=== PATIENT | male | born 1940 | race Caucasian/White ===

== ENCOUNTER 2017-04-17 21:31 | Inpatient (IN) | payer MEDICARE ==
--- NOTE | 2017-04-17 23:41 | ER Document Report ---
ED Medical Screen (RME) - General Chief Complaint: Chest Pain Stated Complaint: ABDOMINAL PAIN Time Seen by Provider: 04/17/17 23:30 Notes: 36-year-old male, has 2 complaints, chief complaint is lower abdominal pain and pain in his perineum, he was initially treated with Cipro for suspected prostatitis, saw his urologist and was changed to Bactrim. He states it is still present and uncomfortable. He also states that he is feeling pain in his upper chest, he points to his epigastric area. He states that it is difficult to eat at times. He occasionally reports nausea. He denies current upper abdominal pain or chest pain. He denies shortness of breath, fever, vomiting. He has prostate cancer, not on chemotherapy or radiation at this time. TRAVEL OUTSIDE OF THE [place] IN LAST 30 DAYS: No - Related Data Allergies/Adverse Reactions: No Known Allergies Allergy (Unverified 08/25/12 08:20) Past Medical History - Past Medical History Cardiac Medical History: Reports: Hx Hypercholesterolemia - controlled by meds, Hx Hypertension - 12 yrs Denies: Hx Coronary Artery Disease, Hx Heart Attack Pulmonary Medical History: Reports: Hx Pneumonia Denies: Hx Asthma, Hx Bronchitis, Hx COPD Neurological Medical History: Denies: Hx Cerebrovascular Accident, Hx Seizures Endocrine Medical History: Reports: Hx Hypothyroidism Renal/ Medical History: Reports: Hx Benign Prostatic Hyperplasia. Denies: Hx Peritoneal Dialysis GI Medical History: Reports: Hx Gastroesophageal Reflux Disease, Hx Hiatal Hernia - 30 years ago Musculoskeltal Medical History: Reports Hx Arthritis - shoulders,knees,ribs Past Surgical History: Reports: Hx Adenoidectomy, Hx Coronary Artery Bypass Graft - 10 YRS AGO, Hx Tonsillectomy. Denies: Hx Pacemaker - Immunizations Immunizations up to date: Yes Hx Diphtheria, Pertussis, Tetanus Vaccination: - unk Physical Exam - Vital signs Vitals: Temp Pulse Resp BP Pulse Ox 98.5 F 67 16 121/58 L 96 04/17/17 21:59 04/17/17 21:59 04/17/17 21:59 04/17/17 21:59 04/17/17 21:59 - Abdominal Inspection: Normal Tenderness: Tender - Patient winced when pressing on the epigastric area, has mild generalized tenderness, no guarding Course - Vital Signs Vital signs: Temp Pulse Resp BP Pulse Ox 98.5 F 67 16 121/58 L 96 04/17/17 21:59 04/17/17 21:59 04/17/17 21:59 04/17/17 21:59 04/17/17 21:59
[2017-04-18 00:21] LABS: ABSOLUTE EOSINOPHILS # (AUTO) 0.1 10^3/uL (0.0-0.6); ABSOLUTE NEUT (AUTO) 8.1 10^3/uL (1.7-8.2); BASOPHILS % (AUTO) 0.1 % (0-2); HEMATOCRIT 35.9 % (37.9-51.0); HEMOGLOBIN 12.6 g/dL (13.5-17.0); HGB HCT DIFFERENCE 1.9; LYMPHOCYTES % (AUTO) 9.7 % (13-45); MEAN CORPUSCULAR HEMOGLOBIN 32.6 pg (27.0-33.4); MEAN CORPUSCULAR HGB CONC 35.2 g/dL (32.0-36.0); MEAN CORPUSCULAR VOLUME 93 fl (80-97); MONOCYTES % (AUTO) 9.5 % (3-13); RED BLOOD COUNT 3.87 10^6/uL (4.35-5.55); RED CELL DISTRIBUTION WIDTH 12.6 % (11.5-14.0); SEGMENTED NEUTROPHILS % (AUTO) 79.7 % (42-78); WHITE BLOOD COUNT 10.1 10^3/uL (4.0-10.5)
[2017-04-18 00:34] LABS: ALANINE AMINOTRANSFERASE 57 U/L (21-72); ALBUMIN 3.9 g/dL (3.5-5.0); ALKALINE PHOSPHATASE 53 U/L (38-126); ANION GAP 11 (5-19); ASPARTATE AMINO TRANSFERASE 62 U/L (17-59); BILIRUBIN,DIRECT 0.3 mg/dL (0.0-0.4); BILIRUBIN,TOTAL 0.6 mg/dL (0.2-1.3); BLOOD UREA NITROGEN 16 mg/dL (7-20); CALCIUM 8.6 mg/dL (8.4-10.2); CARBON DIOXIDE 23 mmol/L (22-30); CHLORIDE 80 mmol/L (98-107); CREATINE KINASE 1134 U/L (55-170); CREATININE RESULT 1.33 mg/dL (0.52-1.25); GLUCOSE 98 mg/dL (75-110); LIPASE 141.9 U/L (23-300); POTASSIUM 4.1 mmol/L (3.6-5.0); TOTAL PROTEIN 6.4 g/dL (6.3-8.2)
[2017-04-18 00:37] LABS: SODIUM 114.2 mmol/L (137-145)
[2017-04-18 00:43] LABS: TROPONIN I < 0.012 ng/mL
--- NOTE | 2017-04-18 01:08 | ER Document Report ---
ED General - General Chief Complaint: Chest Pain Stated Complaint: ABDOMINAL PAIN Time Seen by Provider: 04/17/17 23:30 Notes: Patient is a 76-year-old male who presents with complaint of some lower abdominal pain and some comfort of his prostate. He is also had some epigastric pain. No difficulty breathing. No vomiting. He has also had some burning and pain into his feet and legs. Patient says he saw his family doctor several weeks ago. He had not been urinating as much and had some discomfort with prostate air and therefore they placed him on Cipro for possible prostatitis. Follow-up with his urologist last week. His urologist palpate his prostate and he had no pain there. Neurologist that is probably not prostatitis however he still switch his antibiotic to Bactrim anyway to see if it would help relieve his symptoms. Patient says he still has some discomfort in the area. He has no other complaints. He does have a history of prostate cancer. He says there is no current radiation or chemo treatment for it. TRAVEL OUTSIDE OF THE [place] IN LAST 30 DAYS: No - Related Data Allergies/Adverse Reactions: No Known Allergies Allergy (Unverified 08/25/12 08:20) Past Medical History - Social History Smoking Status: Unknown if Ever Smoked Frequency of alcohol use: None Drug Abuse: None Family History: Reviewed & Not Pertinent Patient has suicidal ideation: No Patient has homicidal ideation: No - Past Medical History Cardiac Medical History: Reports: Hx Hypercholesterolemia - controlled by meds, Hx Hypertension - 12 yrs Denies: Hx Coronary Artery Disease, Hx Heart Attack Pulmonary Medical History: Reports: Hx Pneumonia Denies: Hx Asthma, Hx Bronchitis, Hx COPD Neurological Medical History: Denies: Hx Cerebrovascular Accident, Hx Seizures Endocrine Medical History: Reports: Hx Hypothyroidism Renal/ Medical History: Reports: Hx Benign Prostatic Hyperplasia. Denies: Hx Peritoneal Dialysis GI Medical History: Reports: Hx Gastroesophageal Reflux Disease, Hx Hiatal Hernia - 30 years ago Musculoskeltal Medical History: Reports Hx Arthritis - shoulders,knees,ribs Past Surgical History: Reports: Hx Adenoidectomy, Hx Coronary Artery Bypass Graft - 10 YRS AGO, Hx Tonsillectomy. Denies: Hx Pacemaker - Immunizations Immunizations up to date: Yes Hx Diphtheria, Pertussis, Tetanus Vaccination: - unk Hx Pneumococcal Vaccination: 09/15/05 Review of Systems - Review of Systems Notes: My Normal Review Basic REVIEW OF SYSTEMS: CONSTITUTIONAL : Denies fever, chills, or sweats. Denies recent illness. EENT: Denies eye, ear, throat, or mouth pain or symptoms. Denies nasal or sinus congestion. Chest: Patient denies chest pain. RESPIRATORY: Denies cough, cold, or chest congestion. Denies shortness of breath, difficulty breathing, or wheezing. GASTROINTESTINAL: Some lower abdominal pain and epigastric pain. Denies nausea, vomiting, or diarrhea. Denies constipation. Last BM: GENITOURINARY: No pain with urination. Patient says he is urinating much less than he typically does. MUSCULOSKELETAL: Denies neck or back pain or joint pain or swelling. SKIN: Denies rash or skin lesions. NEUROLOGICAL: Denies altered mental status or loss of consciousness. Denies headache. Denies weakness or paralysis or loss of use of either side. Denies problems with gait or speech. Denies sensory or motor loss. ALL OTHER SYSTEMS REVIEWED AND NEGATIVE. Physical Exam - Vital signs Vitals: Temp Pulse Resp BP Pulse Ox 98.5 F 67 16 121/58 L 96 04/17/17 21:59 04/17/17 21:59 04/17/17 21:59 04/17/17 21:59 04/17/17 21:59 - Notes Notes: General Appearance: Well nourished, alert, cooperative, no acute distress, no obvious discomfort. Well appearing. Vitals: reviewed, See vital signs table. Head: no swelling or tenderness to the head Eyes: PERRL, EOMI, Conjuctiva clear Mouth: No decreasd moisture Neck: Supple, no neck tenderness, No thyromegaly Lungs: No wheezing, No rales, No rhonci, No accessory muscle use, good air exchange bilaterally. Heart: Normal rate, Regular rythm, No murmur, no rub Abdomen: Normal BS, soft, No rigidity, mild epigastric and suprapubic abdominal tenderness to palpation., No guarding, no rebound, no abdominal masses, no organomegaly. Bedside ultrasound shows large prostate. Bedside ultrasound also shows bladder with a small amount of urine in it. Rectum: Large prostate. Prostate is not tender to palpation. Extremities: strength 5/5 in all extremities, good pulses in all extremities, no swelling or tenderness in the extremities, no edema. Skin: warm, dry, appropriate color, no rash Neuro: speech clear, oriented x 3, normal affect, responds appropriately to questions. Cranial nerves II through XII are intact. Distal sensation intact. Patient was all extremities without difficulty. More gait. Course - Re-evaluation Re-evalutation: 04/18/17 04:[address] Oliveira for admission. He wants to see the results of the urine before he accepts the patient. Patient was able to urinate after receiving IV fluids. I am awaiting the results of the urine. - Vital Signs Vital signs: Temp Pulse Resp BP Pulse Ox 98.5 F 67 14 128/75 H 97 04/17/17 21:59 04/17/17 21:59 04/18/17 04:01 04/18/17 04:01 04/18/17 04:01 - Laboratory Result Diagrams: 04/17/17 23:49 04/17/17 23:49 Laboratory results interpreted by me: 04/17/17 04/17/17 04/17/17 23:49 23:49 23:49 RBC 3.87 L Hgb 12.6 L Hct 35.9 L Seg Neutrophils % 79.7 H Lymphocytes % 9.7 L Sodium 114.2 L* Chloride 80 L Creatinine 1.33 H Est GFR (Non-Af Amer) 52 L AST 62 H Creatine Kinase 1134 H CK-MB (CK-2) 17.20 H Urine Ketones 04/18/17 03:43 RBC Hgb Hct Seg Neutrophils % Lymphocytes % Sodium Chloride Creatinine Est GFR (Non-Af Amer) AST Creatine Kinase CK-MB (CK-2) Urine Ketones TRACE H - EKG Interpretation by Me Additional EKG results interpreted by me: 04/18/17 01:08 EKG is reviewed and interpreted by me. EKG shows normal sinus rhythm with a rate of [address] segment elevation or depression. No ischemic T-wave inversions. ME interval is borderline elevated. QRS duration and QTc intervals are within normal range. Old EKG available for comparison at this time. Discharge - Discharge Clinical Impression: Hyponatremia Abdominal pain Qualifiers: Abdominal location: epigastric Qualified Code(s): R10.13 - Epigastric pain Condition: Stable Admitting Provider: Hospitalist Unit Admitted: ICU
[2017-04-18] MEDS ORDERED: NORMAL SALINE 500 ML IV ONE (01:29)
--- NOTE | 2017-04-18 02:07 | RADIOLOGY REPORT (SQ) ---
EXAM DESCRIPTION: CHEST SINGLE VIEW COMPLETED DATE/TIME: 04/18/2017 1:49 am REASON FOR STUDY: chest pain COMPARISON: 08/24/2012. EXAM PARAMETERS: NUMBER OF VIEWS: One view. TECHNIQUE: Single frontal radiographic view of the chest acquired. RADIATION DOSE: NA LIMITATIONS: None. FINDINGS: LUNGS AND PLEURA: No opacities, masses or pneumothorax. No pleural effusion. MEDIASTINUM AND HILAR STRUCTURES: No masses. Contour normal. HEART AND VASCULAR STRUCTURES: Heart normal in size. Normal vasculature. BONES: No acute findings. HARDWARE: Sternotomy. OTHER: No other significant finding. IMPRESSION: NO ACUTE RADIOGRAPHIC FINDING IN THE CHEST. TECHNICAL DOCUMENTATION: JOB ID: [id number]
[2017-04-18 04:27] LABS: APPEARANCE,URINE CLEAR; BILIRUBIN,URINE NEGATIVE (NEGATIVE); GLUCOSE, URINE NEGATIVE (NEGATIVE); KETONES,URINE TRACE mg/dL (NEGATIVE); LEUKOCYTE ESTERASE,URINE NEGATIVE (NEGATIVE); NITRITE,URINE NEGATIVE (NEGATIVE); PROTEIN,URINE NEGATIVE (NEGATIVE); URINE SPECIFIC GRAVITY 1.014; UROBILINOGEN,URINE NEGATIVE mg/dL (<2.0)
[2017-04-18 04:46] LABS: URINE CREATININE 177.9 mg/dL (22-328)
[2017-04-18] MEDS ORDERED: NORMAL SALINE 1000 ML 1,000 ML IV ONE (05:30)
[2017-04-18 06:08] LABS: BLOOD UREA NITROGEN 16 mg/dL (7-20); CALCIUM 8.3 mg/dL (8.4-10.2); CARBON DIOXIDE 22 mmol/L (22-30); CHLORIDE 86 mmol/L (98-107); CREATINE KINASE 993 U/L (55-170); CREATININE RESULT 1.17 mg/dL (0.52-1.25); GLUCOSE 90 mg/dL (75-110); POTASSIUM 4.2 mmol/L (3.6-5.0)
[2017-04-18 06:10] LABS: ANION GAP 10 (5-19)
[2017-04-18 06:17] LABS: SODIUM 117.8 mmol/L (137-145)
--- NOTE | 2017-04-18 06:20 | PDOC H&P ---
History of Present Illness Admission Date/PCP: 04/18/17 05:35 SHADIA AZAR PA-C Patient complains of: Epigastric pain History of Present Illness: MARGOTH SINGH is a 76 year old male with a past medical history of coronary artery disease status post coronary artery bypass graft greater than 10 years ago, hypothyroidism, GERD, BPH with non-metastatic prostate cancer, who was in his usual state of health until approximately a week ago complaining of pain of the perineum and diagnosed with prostatitis he was on ciprofloxacin for approximately a week and transitioned to Bactrim over the last few days. In addition he has taken Naprosyn every 12 hours for the pain. Today he presents with 48 hours of epigastric pain. In the emergency room he found to have a sodium of 114 and given 500 mL of normal saline 1. He is clinically euvolemic with chemistry and UA pending. He denies nausea vomiting or confusion. 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 6 months ago his Synthroid was reduced from 150 mcg to 75 mcg. He complains of dry mouth consuming a minimum of 40 ounces of water per day. Past Medical History Cardiac Medical History: Reports: Hyperlipidema - controlled by meds, Hypertension - 12 yrs Denies: Coronary Artery Disease, Myocardial Infarction Pulmonary Medical History: Reports: Pneumonia Denies: Asthma, Bronchitis, Chronic Obstructive Pulmonary Disease (COPD) Neurological Medical History: Denies: Seizures Endocrine Medical History: Reports: Hypothyroidism Malignancy Medical History: Reports: Other - Early nonmetastatic prostate cancer GI Medical History: Reports: Gastroesophageal Reflux Disease, Hiatal Hernia - 30 years ago Musculoskeltal Medical History: Reports: Arthritis - shoulders,knees,ribs Psychiatric Medical History: Reports: Other - Adjustment disorder with anxiety Denies: Alcohol Dependency, Tobacco Dependency Hematology: Denies: Anemia Past Surgical History Past Surgical History: Reports: Coronary Artery Bypass Graft - 10 YRS AGO, Tonsillectomy Denies: Pacemaker Social History Information Source: Patient Lives with: Spouse/Significant other Smoking Status: Former Smoker Hx Recreational Drug Use: No Hx Prescription Drug Abuse: No - Advance Directive Resuscitation Status: Full Code Family History Family History: COPD Parental Family History Reviewed: Yes Children Family History Reviewed: Yes Sibling(s) Family History Reviewed.: Yes Medication/Allergy Home Medications: Aspirin [Aspirin 81 mg Chewable Tablet] 81 mg PO DAILY 08/18/12 Levothyroxine Sodium [Synthroid 0.075 mg Tablet] 0.075 mg PO DAILY 08/18/12 Simvastatin [Zocor 40 mg Tablet] 20 mg PO QHS 08/18/12 Tamsulosin HCl [Flomax 0.4 mg Cap.sr] 2 tab PO QHS 08/18/12 Amlodipine Besylate [Norvasc 5 mg Tablet] 5 mg PO QPM 08/25/12 Multivitamin [Tab-A-Elvin (Multiple Vitamin) Tablet] 1 tab PO DAILY 08/25/12 Omeprazole [Prilosec 40 mg Capsule] 40 mg PO DAILY #0 capsule.dr 08/26/12 Finasteride 5 mg PO QAM 06/10/14 Ramipril [Altace] 5 mg PO BID 06/10/14 Vit B6-B12 18 mcg PO QAM 06/10/14 Oxycodone HCl/Acetaminophen [Percocet 5-325 mg Tablet] 1 - 2 tab PO ASDIR PRN # 25 tablet 06/15/14 Allergies/Adverse Reactions: No Known Allergies Allergy (Unverified 08/25/12 08:20) Review of Systems Constitutional: ABSENT: chills, fever(s), headache(s), weight gain, weight loss Eyes: ABSENT: visual disturbances Ears: ABSENT: hearing changes Cardiovascular: ABSENT: chest pain, dyspnea on exertion, edema, orthropnea, palpitations Respiratory: ABSENT: cough, hemoptysis Gastrointestinal: ABSENT: abdominal pain, constipation, diarrhea, hematemesis, hematochezia, nausea, vomiting Genitourinary: ABSENT: dysuria, hematuria Musculoskeletal: ABSENT: joint swelling Integumentary: ABSENT: rash, wounds Neurological: ABSENT: abnormal gait, abnormal speech, confusion, dizziness, focal weakness, syncope Psychiatric: ABSENT: anxiety, depression, homidical ideation, suicidal ideation Endocrine: ABSENT: cold intolerance, heat intolerance, polydipsia, polyuria Hematologic/Lymphatic: ABSENT: easy bleeding, easy bruising Physical Exam Vital Signs: Temp Pulse Resp BP Pulse Ox 98.5 F 67 14 148/75 H 96 04/17/17 21:59 04/17/17 21:59 04/18/17 06:01 04/18/17 06:01 04/18/17 06:01 General appearance: PRESENT: no acute distress, well-developed, well-nourished Head exam: PRESENT: atraumatic, normocephalic Eye exam: PRESENT: conjunctiva pink, EOMI, PERRLA. ABSENT: scleral icterus Ear exam: PRESENT: normal external ear exam Mouth exam: PRESENT: moist, tongue midline Neck exam: ABSENT: carotid bruit, JVD, lymphadenopathy, thyromegaly Respiratory exam: PRESENT: clear to auscultation misael. ABSENT: rales, rhonchi, wheezes Cardiovascular exam: PRESENT: RRR. ABSENT: diastolic murmur, rubs, systolic murmur Pulses: PRESENT: normal dorsalis pedis pul Vascular exam: PRESENT: normal capillary refill GI/Abdominal exam: PRESENT: normal bowel sounds, soft. ABSENT: distended, guarding, mass, organolmegaly, rebound, tenderness Rectal exam: PRESENT: deferred Extremities exam: PRESENT: full ROM. ABSENT: calf tenderness, clubbing, pedal edema Neurological exam: PRESENT: alert, awake, oriented to person, oriented to place , oriented to time, oriented to situation, CN II-XII grossly intact. ABSENT: motor sensory deficit Psychiatric exam: PRESENT: appropriate affect, normal mood. ABSENT: homicidal ideation, suicidal ideation Skin exam: PRESENT: dry, intact, warm. ABSENT: cyanosis, rash Results Impressions: Chest X-Ray 04/17/17 23:39 IMPRESSION: NO ACUTE RADIOGRAPHIC FINDING IN THE CHEST. Assessment & Plan - Diagnosis (1) Hyponatremia Is this a current diagnosis for this admission?: YesPlan: Severe hyponatremia most likely secondary to recent medications including Bactrim, Naprosyn, Pepcid twice daily, sertraline, reduction in Synthroid and 40 ounces of free water per day. He does admit a history of excessive water intake and has been counseled to reduce. Follow-up serial chemistry, urinalysis , urine sodium urine osmoles. Trial 1 L normal saline with reevaluation of chemistry. Initiate 3% saline if neurologic symptoms evolve and consider nephrology consultation. (2) Rhabdomyolysis Is this a current diagnosis for this admission?: YesPlan: Likely secondary to hyponatremia, corrected underlying cause reevaluate serial total CK and gentle hydration. (3) Abdominal pain Qualifiers: Abdominal location: epigastric Qualified Code(s): R10.13 - Epigastric pain Is this a current diagnosis for this admission?: YesPlan: Possibly secondary to hyponatremia with early symptoms however also on Naprosyn which is discontinued continue Prevacid consider Carafate and symptomatic management. - Time Time Spent: 50 to 70 Minutes - Inpatient Certification Medical Necessity: Need Close Monitoring Due to Risk of Patient Decompensation
[2017-04-18 06:22] LABS: TROPONIN I < 0.012 ng/mL
[2017-04-18] MEDS ORDERED: LEVOTHYROXINE SODIUM 0.075 MG TABLET PO SCH (08:00)
[2017-04-18] MEDS ORDERED: FINASTERIDE 5 MG TABLET PO SCH (08:00)
[2017-04-18] MEDS: NORMAL SALINE 1000 ML 1,000 ML IV PRN ×2 (08:05→18:37)
--- NOTE | 2017-04-18 08:20 | EKG REPORT ---
SEVERITY:- ABNORMAL ECG - SINUS RHYTHM FIRST DEGREE AV BLOCK INFERIOR INFARCT, AGE INDETERMINATE : Confirmed by: Delvin Barrera MD 18-Apr-2017 08:18:34
[2017-04-18] MEDS: HEPARIN SOD (PORCINE) 5,000 UNIT/ML 1 ML SYRINGE SUBCUT SCH ×3 (09:04→21:40)
[2017-04-18 09:36] LABS: BLOOD UREA NITROGEN 14 mg/dL (7-20); CALCIUM 8.2 mg/dL (8.4-10.2); CARBON DIOXIDE 23 mmol/L (22-30); CHLORIDE 87 mmol/L (98-107); CREATININE RESULT 1.05 mg/dL (0.52-1.25); GLUCOSE 99 mg/dL (75-110); POTASSIUM 4.4 mmol/L (3.6-5.0)
[2017-04-18 09:44] LABS: ANION GAP 9 (5-19); SODIUM 118.6 mmol/L (137-145)
[2017-04-18] MEDS: LEVOTHYROXINE SODIUM 0.075 MG TABLET PO SCH (09:48)
[2017-04-18] MEDS: FINASTERIDE 5 MG TABLET PO SCH (09:48)
[2017-04-18] MEDS: TAMSULOSIN HCL 0.4 MG CAP.SR.24H PO SCH ×2 (09:58→18:01)
[2017-04-18] MEDS: ASPIRIN 81 MG TABLET, ENT COATED PO SCH (09:58)
[2017-04-18] MEDS: LANSOPRAZOLE 15 MG TAB.RAP.DR PO SCH ×2 (09:58→18:03)
[2017-04-18] MEDS ORDERED: PRIMIDONE 50 MG TABLET PO SCH (10:00)
[2017-04-18] MEDS ORDERED: AMLODIPINE BESYLATE 5 MG TABLET PO SCH (10:45)
[2017-04-18] MEDS: MULTIVIT-STRESS FORMULA/ZINC TABLET PO SCH (11:36)
[2017-04-18] MEDS: AMLODIPINE BESYLATE 5 MG TABLET PO SCH (11:37)
--- NOTE | 2017-04-18 12:22 | PROGRESS NOTE E ---
Progress Note NAME: MARGOTH SINGH : 1940 AGE: 76Y DATE: 04/18/2017 ROOM: 603 SUBJECTIVE: The patient is lying in bed. He states that he feels much better than when he came in. He denies any nausea, vomiting, diarrhea. No shortness of breath, dizziness, chest pain. No fevers. The patient does admit to some chills. Upon discussion with the patient, it appears that a week ago he was started on sertraline due to his adjustment to his having cancer. The patient states that he did not feel that he needed the medication; however, he took it to be compliant. The patient outpatient has been seen by Urology, and the patient has completed 17 days of treatment for his prostatitis and was recently transitioned over to Bactrim given that his symptoms had not improved. The patient denies any hematuria, pyuria, or dysuria, just complains of dull, achy pain. The patient apparently had normal labs within the past month, and therefore, feels his hyponatremia is acute. REVIEW OF SYSTEMS: Rest of review of systems is negative. MEDICATIONS: Medications have been reviewed. OBJECTIVE: GENERAL: The patient is a 76-year-old male who is awake, alert, and oriented to person, place, time, and situation. He is verbal, conversational, does not appear to be in any acute distress. VITAL SIGNS: Temperature is 98.4, pulse 64, respirations 14, blood pressure is 159/78, oxygen saturation is 96% on room air. SKIN: Warm and dry. No rash. Not diaphoretic. HEENT: Pupils equal, round, and reactive to light and accommodation. Conjunctiva is pink. Sclera is nonicteric. There is no JVP. CARDIOVASCULAR SYSTEM: Heart is regular. There is no murmur or rub. CHEST: Clear, symmetrical, unlabored. ABDOMEN: Soft, nontender, nondistended. BACK: No CVA tenderness or sacral edema. EXTREMITIES: No clubbing, cyanosis, edema. PSYCHIATRIC: Appropriate affect, pleasant mood. DIAGNOSTICS: Lab values are as follows: Hematology obtained on 04/17/2017: WBCs are 10.1, hemoglobin is 12.6, hematocrit is 35.6, platelet count is 220,000. Chemistry obtained on 04/18/2017: Sodium is 118, potassium 4.4, chloride is 87, carbon dioxide 22, BUN 14, creatinine is 1.05, glucose 99, calcium is 8.2. IMPRESSION AND PLAN: 1. HYPONATREMIA. Feel this may be related to the patient's SSRI and possible hypovolemic hyponatremia. The patient has had less intake in the past week. The patient has been gently hydrated and is responding nicely. Will continue serial chemistries and continue to gently hydrate and will follow. 2. ACUTE KIDNEY INJURY. The patient's creatinine was mildly elevated at 1.3. It is now down to 1. This overall appears improved. 3. RHABDOMYOLYSIS. The patient's CK has improved. Will repeat and follow. 4. HYPERTENSION. Patient's blood pressures are elevated. Will start the patient on his home amlodipine and follow. 5. BENIGN PROSTATIC HYPERPLASIA. Will continue the patient's home medications. 6. HYPOTHYROIDISM. Will continue levothyroxine as the patient's TSH is normal. 7. DVT PROPHYLAXIS. Will continue subcu heparin. DISPOSITION: The patient is a FULL CODE. Pending patient's symptomatology and diagnostic findings, will re-evaluate in the a.m. The patient can be downgraded given that he is alert and oriented and responding appropriately. DICTATING PHYSICIAN: SAHIL COBURN NP [id number] PHY#: [id number] ID: [id number] JOB#: [id number] ACCT: [id number] cc: >
[2017-04-18 14:46] LABS: ANION GAP 8 (5-19); BLOOD UREA NITROGEN 11 mg/dL (7-20); CALCIUM 8.1 mg/dL (8.4-10.2); CARBON DIOXIDE 24 mmol/L (22-30); CHLORIDE 87 mmol/L (98-107); GLUCOSE 98 mg/dL (75-110); POTASSIUM 4.5 mmol/L (3.6-5.0)
[2017-04-18 14:54] LABS: SODIUM 118.7 mmol/L (137-145)
[2017-04-18 15:01] LABS: TROPONIN I < 0.012 ng/mL
[2017-04-18] MEDS: SULFAMETHOXAZOLE/TRIMETHOPRIM 800-160 MG TABLET PO SCH (18:02)
[2017-04-18 19:20] LABS: BLOOD UREA NITROGEN 10 mg/dL (7-20); CALCIUM 8.4 mg/dL (8.4-10.2); CARBON DIOXIDE 22 mmol/L (22-30); CHLORIDE 88 mmol/L (98-107); GLUCOSE 106 mg/dL (75-110); POTASSIUM 4.8 mmol/L (3.6-5.0)
[2017-04-18 19:23] LABS: ANION GAP 10 (5-19)
[2017-04-18 19:38] LABS: SODIUM 119.5 mmol/L (137-145)
[2017-04-18] MEDS ORDERED: PRIMIDONE 50 MG TABLET ONE (21:18)
[2017-04-18] MEDS: PRIMIDONE 50 MG TABLET PO SCH (21:40)
[2017-04-18] MEDS ORDERED: LANSOPRAZOLE 15 MG TAB.RAP.DR PO SCH (22:00)
[2017-04-18 23:07] LABS: ANION GAP 8 (5-19); BLOOD UREA NITROGEN 11 mg/dL (7-20); CALCIUM 8.1 mg/dL (8.4-10.2); CARBON DIOXIDE 24 mmol/L (22-30); CHLORIDE 90 mmol/L (98-107); CREATININE RESULT 1.03 mg/dL (0.52-1.25); GLUCOSE 103 mg/dL (75-110); POTASSIUM 4.5 mmol/L (3.6-5.0); SODIUM 121.6 mmol/L (137-145)
[2017-04-19 02:24] LABS: ANION GAP 7 (5-19); BLOOD UREA NITROGEN 11 mg/dL (7-20); CALCIUM 8.4 mg/dL (8.4-10.2); CARBON DIOXIDE 24 mmol/L (22-30); CHLORIDE 94 mmol/L (98-107); CREATININE RESULT 1.02 mg/dL (0.52-1.25); GLUCOSE 102 mg/dL (75-110); POTASSIUM 4.9 mmol/L (3.6-5.0); SODIUM 125.1 mmol/L (137-145)
[2017-04-19 05:25] LABS: ABSOLUTE EOSINOPHILS # (AUTO) 0.2 10^3/uL (0.0-0.6); ABSOLUTE LYMPHOCYTES (AUTO) 0.7 10^3/uL (0.5-4.7); ABSOLUTE MONOCYTES (AUTO) 0.7 10^3/uL (0.1-1.4); ABSOLUTE NEUT (AUTO) 4.8 10^3/uL (1.7-8.2); BASOPHILS % (AUTO) 0.4 % (0-2); EOSINOPHILS % (AUTO) 2.9 % (0-6); HEMATOCRIT 35.4 % (37.9-51.0); HEMOGLOBIN 12.3 g/dL (13.5-17.0); HGB HCT DIFFERENCE 1.5; LYMPHOCYTES % (AUTO) 11.6 % (13-45); MEAN CORPUSCULAR HEMOGLOBIN 32.6 pg (27.0-33.4); MEAN CORPUSCULAR HGB CONC 34.8 g/dL (32.0-36.0); MEAN CORPUSCULAR VOLUME 94 fl (80-97); MONOCYTES % (AUTO) 10.7 % (3-13); RED BLOOD COUNT 3.78 10^6/uL (4.35-5.55); RED CELL DISTRIBUTION WIDTH 13.1 % (11.5-14.0); SEGMENTED NEUTROPHILS % (AUTO) 74.4 % (42-78); WHITE BLOOD COUNT 6.4 10^3/uL (4.0-10.5)
[2017-04-19 05:41] LABS: ANION GAP 8 (5-19); BLOOD UREA NITROGEN 10 mg/dL (7-20); CALCIUM 8.3 mg/dL (8.4-10.2); CARBON DIOXIDE 22 mmol/L (22-30); CHLORIDE 96 mmol/L (98-107); CREATININE RESULT 1.02 mg/dL (0.52-1.25); GLUCOSE 96 mg/dL (75-110); POTASSIUM 5.1 mmol/L (3.6-5.0); SODIUM 126.1 mmol/L (137-145)
[2017-04-19] MEDS: HEPARIN SOD (PORCINE) 5,000 UNIT/ML 1 ML SYRINGE SUBCUT SCH ×3 (05:48→21:22)
--- NOTE | 2017-04-19 09:57 | PROGRESS NOTE E ---
Progress Note NAME: MARGOTH SINGH : 1940 AGE: 76Y DATE: 04/19/2017 ROOM: 528 SUBJECTIVE: Patient is sitting on the side of the bed. He states he feels much better today. His only complaint is just some slight weakness, as well as hard stool. The patient denies any nausea, vomiting, diarrhea. No shortness of breath, dizziness, chest pain. No fevers, chills. The patient has an excellent appetite and has been eating all of his meals. The patient does not voice any other concerns at this time. REVIEW OF SYSTEMS: Rest of review of systems is negative. MEDICATIONS: Medications have been reviewed. OBJECTIVE: GENERAL: The patient is a 76-year-old male who is awake, alert, and oriented to person, place, time, and situation. He is verbal, conversational, ambulatory. Does not appear to be in any acute distress. VITAL SIGNS: Temperature is 97.6, pulse 62, respirations 18, blood pressure is 134/72, oxygen saturation is 98% on room air. SKIN: Warm and dry. No rash. Not diaphoretic. HEENT: Pupils equal, round, and reactive to light and accommodation. Conjunctivae are pink. NECK: There is no JVP. HEART: Regular. There is no murmur or rub. CHEST: Clear, symmetrical, unlabored. ABDOMEN: Soft, nontender, nondistended. BACK: No CVA tenderness or sacral edema. EXTREMITIES: No clubbing, cyanosis, edema. DIAGNOSTICS: Lab values are as follows: Hematology obtained on 04/19/2017: WBCs are 6.4, hemoglobin is 12.3, hematocrit is 35.4, platelet count is 175,000. Chemistry obtained on 04/19/2017: Sodium is 126, potassium 5.1, chloride is 96, carbon dioxide 22, BUN 10, creatinine is 1.02, glucose 96, calcium is 8.3. Urine culture reveals no growth. IMPRESSION AND PLAN: 1. HYPONATREMIA. This is acute, most likely related to the patient's selective serotonin reuptake inhibitor and hypovolemic hyponatremia. The patient has had less intake in the past week. He has been gently hydrated and is responding nicely. The patient is asymptomatic at this time, other than some mild weakness. Will repeat his chemistry and will resume previous hydration. Once again, this is acute and not a correction of a chronic hyponatremia. 2. ACUTE KIDNEY INJURY. The patient's creatinine was mildly elevated. It is now much improved. Will follow. 3. RHABDOMYOLYSIS. The patient's CK had improved. Will repeat and follow. 4. HYPERTENSION. The patient's blood pressures have improved. Will continue his home medications. 5. BENIGN PROSTATIC HYPERPLASIA. Will continue the patient's home medications. 6. HYPOTHYROIDISM. Will continue levothyroxine. The patient's TSH is normal. 7. CONSTIPATION. Will add Colace. DISPOSITION: The patient is a FULL CODE. Pending patient's symptomatology and diagnostic findings, will re-evaluate in the a.m. Time spent on this followup including assessment, plan, physical examination, patient education is 25 minutes. DICTATING PHYSICIAN: SAHIL COBURN NP [id number] PHY#: [id number] ID: [id number] JOB#: [id number] ACCT: [id number] cc: >
[2017-04-19] MEDS ORDERED: (PENDING PHARMACY ID) (Vitamin B Complex [Super B Complex] 1 EACH) PO SCH (10:00)
[2017-04-19 10:54] LABS: ANION GAP 10 (5-19); BLOOD UREA NITROGEN 10 mg/dL (7-20); CALCIUM 8.8 mg/dL (8.4-10.2); CARBON DIOXIDE 25 mmol/L (22-30); CHLORIDE 95 mmol/L (98-107); CREATININE RESULT 1.21 mg/dL (0.52-1.25); GLUCOSE 88 mg/dL (75-110); POTASSIUM 4.4 mmol/L (3.6-5.0); SODIUM 129.5 mmol/L (137-145)
[2017-04-19] MEDS: ASPIRIN 81 MG TABLET, ENT COATED PO SCH (11:01)
[2017-04-19] MEDS: SULFAMETHOXAZOLE/TRIMETHOPRIM 800-160 MG TABLET PO SCH ×2 (11:01→17:36)
[2017-04-19] MEDS: TAMSULOSIN HCL 0.4 MG CAP.SR.24H PO SCH ×2 (11:02→17:36)
[2017-04-19] MEDS: DOCUSATE SODIUM 100 MG CAPSULE PO SCH ×2 (11:02→17:36)
[2017-04-19] MEDS: LEVOTHYROXINE SODIUM 0.075 MG TABLET PO SCH (11:05)
[2017-04-19] MEDS: FINASTERIDE 5 MG TABLET PO SCH (11:06)
[2017-04-19] MEDS: LANSOPRAZOLE 15 MG TAB.RAP.DR PO SCH ×2 (11:06→17:36)
[2017-04-19] MEDS: PRIMIDONE 50 MG TABLET PO SCH ×2 (11:12→21:22)
[2017-04-19] MEDS: MULTIVIT-STRESS FORMULA/ZINC TABLET PO SCH (12:47)
[2017-04-19] MEDS: NORMAL SALINE 1000 ML 1,000 ML IV PRN (14:07)
[2017-04-19] MEDS: AMLODIPINE BESYLATE 5 MG TABLET PO SCH (16:26)
[2017-04-20] MEDS: NORMAL SALINE 1000 ML 1,000 ML IV PRN (02:24)
[2017-04-20 05:46] LABS: ANION GAP 7 (5-19); BLOOD UREA NITROGEN 13 mg/dL (7-20); CALCIUM 8.4 mg/dL (8.4-10.2); CARBON DIOXIDE 23 mmol/L (22-30); CHLORIDE 99 mmol/L (98-107); GLUCOSE 86 mg/dL (75-110); MAGNESIUM 1.6 mg/dL (1.6-2.3); POTASSIUM 4.8 mmol/L (3.6-5.0); SODIUM 129.2 mmol/L (137-145)
[2017-04-20] MEDS: HEPARIN SOD (PORCINE) 5,000 UNIT/ML 1 ML SYRINGE SUBCUT SCH (06:02)
[2017-04-20] MEDS ORDERED: LACTULOSE SYRUP 20 GM/30 ML UDCUP PO ONE (07:58)
[2017-04-20] MEDS ORDERED: BISACODYL 10 MG SUPP.RECT PR ONE (07:58)
--- NOTE | 2017-04-20 09:02 | DISCHARGE SUMMARY E ---
Discharge Summary NAME: MARGOTH SINGH : 1940 AGE: 76Y ADMITTED: 04/18/2017 DISCHARGED: 04/20/2017 CODE STATUS: FULL CODE. PRIMARY CARE PROVIDER: Dr. Granado. Outpatient Urologist: [facility] DISCHARGE DIAGNOSES: 1. Hyponatremia. Most likely secondary to SSRI. 2. Acute kidney injury which resolved. 3. Mild rhabdomyolysis which resolved. 4. Hypertension. 5. Benign prostatic hyperplasia. 6. Hypothyroidism. 7. Constipation. 8. Acute prostatitis. DISCHARGE MEDICATIONS: 1. Colace 100 mg p.o. b.i.d. 2. Amlodipine 5 mg p.o. daily. 3. Aspirin 81 mg p.o. daily. 4. Atorvastatin 40 mg p.o. hour of sleep. 5. Benazepril 5 mg p.o. q.12 h. 6. Finasteride 5 mg p.o. every hour of sleep. 7. Levothyroxine 75 mcg p.o. q.a.m. 8. Omeprazole 20 mg p.o. q.12 h. 9. Primidone 50 mg p.o. q.12 h. 10. Flomax 0.8 mg p.o. q.p.m. 11. Vitamin B complex 1 capsule p.o. daily. 12. Bactrim 1 tablet p.o. b.i.d. DIET: Heart-healthy as tolerated. ACTIVITY: As tolerated. DIAGNOSTICS: Lab values are as follows: Hematology obtained on 04/19/2017: WBCs are 6.4, hemoglobin 12.3, hematocrit 35.4, and platelet count is 175,000. Chemistry obtained on 04/19/2017: Sodium is 129, potassium 4.8, chloride 99, carbon dioxide 23, BUN 13, creatinine 0.90, glucose 86, calcium 8.4, magnesium 1.6, CK 929, total bilirubin is 0.6, AST 62, ALT 57, alkaline phosphatase 53, total protein 6.4, albumin 3.9, lipase 141, TSH 1.23. Urinalysis obtained on 04/18/2017: Color yellow, appearance clear, pH 6.0, specific gravity is 1.014, protein negative, glucose negative, ketones trace, occult blood negative, nitrite negative, bilirubin negative, urobilinogen negative, leukocyte esterase negative, WBC 0, RBC 0, mucus rare. Osmolality 501, creatinine 177, sodium 38, ascorbic acid is negative. Microbiology: Urine culture obtained on 04/18/2017 revealed no growth. Chest x-ray obtained on 04/17/2017 reveals no acute radiographic finding of the chest. EKG obtained on 04/17/2017 reveals sinus rhythm with a first degree AV block. PHYSICAL EXAMINATION: GENERAL: On examination, the patient is a well developed, well nourished 76-year-old male who is awake, alert and oriented to person, place, time and situation. He is verbal, conversational, ambulatory and does not appear to be in any acute distress. VITAL SIGNS ARE FOLLOWS: Temperature 98.1, pulse 67, respirations 18, blood pressure 154/69, oxygen saturation is 99% on room air. SKIN: Warm and dry. No rash, not diaphoretic. HEENT: Pupils are equal, round, and reactive to light and accommodation. Conjunctivae are pink. There is no JVD. CARDIOVASCULAR: Heart is regular. There is no murmur or rub. CHEST: Clear, symmetric, unlabored. ABDOMEN: Soft, nontender and nondistended. BACK: No CVA tenderness or sacral edema. EXTREMITIES: No clubbing, cyanosis or edema. PSYCHIATRIC: Appropriate affect, pleasant mood. HISTORY OF PRESENT ILLNESS: The patient is a 76-year-old male with a past medical history of coronary artery disease and benign prostatic hyperplasia as well as prostatitis. The patient presented to the emergency department with a chief complaint of epigastric pain. The patient had been in his usual state of health until approximately 2 weeks ago when he was complaining of perineal pain and was diagnosed with prostatitis. The patient completed what appeared to be about 12 days of ciprofloxacin and then was transitioned over to Bactrim. The patient also was started on sertraline just a week ago due to adjustment disorder given that his has been diagnosed with cancer. The patient subsequently was found to have a sodium of 114. The patient was given 500 mL of normal saline x1. Clinically the patient was euvolemic with no confusion, vomiting, and the patient just admitted to some dizziness, and the patient was referred to the hospitalist for admission and management. HOSPITAL COURSE: The patient was initially admitted to ICU. The patient was gently hydrated and the patient's sodium slowly trended up. Apparently the patient had labs done approximately 1 month ago that were normal and, therefore, this hyponatremia did appear acute. The patient's sodium trended up nicely to the 130 range and sertraline was stopped. The patient also had some mild rhabdo and the CK has improved as the patient's status was held as well. The patient has complete resolution of symptoms and is quite eager for discharge. Given that the patient is clinically asymptomatic and the patient is eager for discharge with the agreeance he will follow primary care provider for outpatient labs. The patient was resumed on Bactrim during his stay with no bump in his creatinine. The patient's creatinine remained stable at 0.9 after the patient was hydrated and potassium was 4.8. The patient has tolerated the Bactrim well and has actually had improvement of his prostatitis symptoms, so the patient will be cautiously resumed on this and he is to follow up for followup labs given this. The patient states that he has had no extreme worry or grief regarding his and feels that any medication such as an SSRI is not necessary, as he denies any symptoms of depression and was only taking the medication to be compliant. He feels he does not need this medication and has been withheld during the patient's stay here without issue. The patient has ambulated with no evidence of dizziness or weakness, and the patient is ready for discharge. DISCHARGE PLANNING: The patient is advised to follow with his primary care provider within 1 week for hospital followup. Time spent on this discharge, including assessment and plan, physical examination, and patient education is 25 minutes. DICTATING PHYSICIAN: SAHIL COBURN NP [id number] [facility] [id number] ID: [id number] JOB#: [id number] ACCT: [id number] cc:DORCAS AWAD M.D., MICHAEL NP > MTDD
[2017-04-20] MEDS: TAMSULOSIN HCL 0.4 MG CAP.SR.24H PO SCH (09:12)
[2017-04-20] MEDS: LANSOPRAZOLE 15 MG TAB.RAP.DR PO SCH (09:14)
[2017-04-20] MEDS: FINASTERIDE 5 MG TABLET PO SCH (09:14)
[2017-04-20] MEDS: DOCUSATE SODIUM 100 MG CAPSULE PO SCH (09:14)
[2017-04-20] MEDS: ASPIRIN 81 MG TABLET, ENT COATED PO SCH (09:14)
[2017-04-20] MEDS: PRIMIDONE 50 MG TABLET PO SCH (09:14)
[2017-04-20] MEDS: SULFAMETHOXAZOLE/TRIMETHOPRIM 800-160 MG TABLET PO SCH (09:14)
[2017-04-20] MEDS: LEVOTHYROXINE SODIUM 0.075 MG TABLET PO SCH (09:15)
[2017-04-20] MEDS: AMLODIPINE BESYLATE 5 MG TABLET PO SCH (12:24)
[2017-04-20] MEDS: MULTIVIT-STRESS FORMULA/ZINC TABLET PO SCH (12:24)
[2017-04-20 13:13] VITALS: BP 154/69
== END 2017-04-20 14:07 | disposition home or self-care (01) | DRG 641 ==
LOC: ER 21:31 → EH 04-18 05:25 → UNDOADMIN 04-18 05:35 → EH 04-18 05:35 → ICU 04-18 07:47 → 5 04-18 13:38
PROVIDERS: ADMIT Internal Medicine; ATTEND Internal Medicine
DX: E87.1 Hypo-osmolality and hyponatremia (principal); N17.9 Acute kidney failure, unspecified; M62.82 Rhabdomyolysis; N41.0 Acute prostatitis; I10 Essential (primary) hypertension; N40.0 Benign prostatic hyperplasia without lower urinary tract symptoms; T43.225A Adverse effect of selective serotonin reuptake inhibitors, initial encounter; K59.00 Constipation, unspecified; I25.10 Atherosclerotic heart disease of native coronary artery without angina pectoris; C61 Malignant neoplasm of prostate; K21.9 Gastro-esophageal reflux disease without esophagitis; E78.5 Hyperlipidemia, unspecified; M17.0 Bilateral primary osteoarthritis of knee; M19.012 Primary osteoarthritis, left shoulder; M19.011 Primary osteoarthritis, right shoulder; R10.13 Epigastric pain; E03.9 Hypothyroidism, unspecified; I25.2 Old myocardial infarction; Z79.82 Long term (current) use of aspirin; Z95.1 Presence of aortocoronary bypass graft; Z79.899 Other long term (current) drug therapy
CPT/HCPCS: 36415; 71010; 80048; 80053; 81001; 82550; 82553; 82570; 83690; 83735; 83880; 83935; 84300; 84443; 84484; 85025; 87086; 93005; 93010; 96360; 99285; J1644; J3490; J7030; J7040

== ENCOUNTER 2017-12-26 06:31 | Emergency (ER) | payer MEDICARE ==
[2017-12-26] MEDS ORDERED: ACETAMINOPHEN 325 MG TABLET PO ONE (06:47)
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
[2017-12-26] MEDS ORDERED: DIPH/PERTUSS(ACELL)/TETANUS VAC/PF 0.5 ML SYR (>=10YO) IM ONE (07:40)
[2017-12-26 08:39] VITALS: BP 134/79
--- NOTE | 2017-12-26 08:48 | RADIOLOGY REPORT (SQ) ---
EXAM DESCRIPTION: HIP LEFT AP/LATERAL COMPLETED DATE/TIME: 12/26/2017 7:32 am REASON FOR STUDY: fall COMPARISON: None. NUMBER OF VIEWS: Two views. TECHNIQUE: AP pelvis and additional frog-leg view of the left hip. LIMITATIONS: None. FINDINGS: MINERALIZATION: Osteopenic LEFT HIP: No fracture or dislocation. No worrisome bone lesions. Preserved joint space. No bulky b karena spurring RIGHT HIP: No fracture or dislocation. No worrisome bone lesions. Preserved joint space. No bulky bony spurring PUBIS AND ISCHIUM: No fracture. PELVIS: No fracture. SACRUM: No fracture or dislocation. No worrisome bone lesions. LOWER LUMBAR SPINE: Advanced degenerative disc changes at L4-5 and L5-S1 SOFT TISSUES: Very heavily calcified abdominal aorta and iliac vessels without calcified aneurysm OTHER: No other significant finding. IMPRESSION: No acute fracture TECHNICAL DOCUMENTATION: JOB ID: [id number] [employer]- All Rights Reserved Reading location - IP/workstation name: [email or web address]
--- NOTE | 2017-12-26 08:52 | RADIOLOGY REPORT (SQ) ---
EXAM DESCRIPTION: ELBOW LEFT OVER 2 VIEWS COMPLETED DATE/TIME: 12/26/2017 7:32 am REASON FOR STUDY: fall COMPARISON: None. NUMBER OF VIEWS: Four views. TECHNIQUE: AP, lateral, and both oblique radiographic images acquired of the left elbow. LIMITATIONS: None. FINDINGS: MINERALIZATION: Normal. BONES: No acute fracture or dislocation. No worrisome bone lesions. JOINT: No effusion. SOFT TISSUES: No soft tissue swelling. No foreign body. OTHER: No other significant finding. IMPRESSION: NEGATIVE STUDY OF THE LEFT ELBOW. NO RADIOGRAPHIC EVIDENCE OF ACUTE INJURY. TECHNICAL DOCUMENTATION: JOB ID: [id number] [employer]- All Rights Reserved Reading location - IP/workstation name: [email or web address]
== END 2017-12-26 08:38 | disposition home or self-care (01) ==
LOC: ER 06:31
DX: S50.312A Abrasion of left elbow, initial encounter (principal); S79.912A Unspecified injury of left hip, initial encounter; M25.522 Pain in left elbow; M25.552 Pain in left hip; V18.0XXA Pedal cycle driver injured in noncollision transport accident in nontraffic accident, initial encounter; I10 Essential (primary) hypertension
CPT/HCPCS: 99283

== ENCOUNTER 2017-12-27 11:55 | Emergency (ER) | payer MEDICARE ==
--- NOTE | 2017-12-27 13:26 | ER Document Report ---
HPI - HPI Pain Level: Denies Notes: Patient is a 77-year-old male who presents to the ED for a wound dressing change of his abrasion to his left posterior distal arm status post injury yesterday. Patient had a wound dressing placed yesterday as well, but states that he would like the dressing change so that he can shower. He has no other concerns or complaints. He has been eating and drinking without any difficulties. He is urinating normally and having normal bowel moods. Patient has not noticed any worsening redness, purulent discharge, or red streaks. Denies any headache, fever, URI, sore throat, chest pain, palpitations, syncope , cough, shortness of breath, wheeze, dyspnea, abdominal pain, nausea/vomiting/ diarrhea, urinary retention, dysuria, hematuria, or rash. - ROS Systems Reviewed and Negative: Yes All other systems reviewed and negative - CONSTITUTIONAL Constitutional: DENIES: Fever, Chills - REPRODUCTIVE Reproductive: DENIES: : - MUSCULOSKELETAL Musculoskeletal: REPORTS: Extremity pain - L shoulder Past Medical History - Social History Smoking Status: Former Smoker Chew tobacco use (# tins/day): No Frequency of alcohol use: None Family History: COPD Patient has suicidal ideation: No Patient has homicidal ideation: No - Past Medical History Cardiac Medical History: Reports: Hx Hypercholesterolemia - controlled by meds, Hx Hypertension - 12 yrs Denies: Hx Coronary Artery Disease, Hx Heart Attack Pulmonary Medical History: Reports: Hx Pneumonia Denies: Hx Asthma, Hx Bronchitis, Hx COPD Neurological Medical History: Denies: Hx Cerebrovascular Accident, Hx Seizures Endocrine Medical History: Reports: Hx Hypothyroidism Renal/ Medical History: Reports: Hx Benign Prostatic Hyperplasia. Denies: Hx Peritoneal Dialysis GI Medical History: Reports: Hx Gastroesophageal Reflux Disease, Hx Hiatal Hernia - 30 years ago Musculoskeltal Medical History: Reports Hx Arthritis - shoulders,knees,ribs Past Surgical History: Reports: Hx Adenoidectomy, Hx Coronary Artery Bypass Graft - 10 YRS AGO, Hx Tonsillectomy. Denies: Hx Pacemaker - Immunizations Immunizations up to date: Yes Hx Diphtheria, Pertussis, Tetanus Vaccination: - unk Hx Pneumococcal Vaccination: 07/16/16 Vertical Provider Document - CONSTITUTIONAL Agree With Documented VS: Yes Notes: PHYSICAL EXAMINATION: GENERAL: Well-appearing, well-nourished and in no acute distress. LUNGS: Breath sounds clear to auscultation bilaterally and equal. No wheezes rales or rhonchi. HEART: Regular rate and rhythm without murmurs, rubs, gallops. Musculoskeletal: left arm: FROM to passive/active. Strength 5+/5. N/V intact distal. Extremities: No cyanosis, clubbing, or edema b/l. Peripheral pulses 2+. Capillary refill less than 3 seconds. NEUROLOGICAL: Normal speech, normal gait. Normal sensory, motor exams PSYCH: Normal mood, normal affect. SKIN: Left posterodistal arm: + 3cm abrasion noted. Scant serous drainage. no surrounding erythema, induration, purulent discharge, abscess, or streaks. - INFECTION CONTROL TRAVEL OUTSIDE OF THE [place] IN LAST 30 DAYS: No Course - Re-evaluation Re-evalutation: 12/27/17 13:24 Patient is an afebrile, well-hydrated, 77-year-old male who presents to the ED for a wound dressing change of his left posterior arms abrasion. Vitals are acceptable. PE is otherwise unremarkable for any neurovascular compromise, obvious tendon/ligament rupture, obvious fracture/dislocation, sepsis, or other skin infection. Wound dressing was placed. Patient to recheck with his PCM in 2-3 days. Return to the ED with any worsening/concerning symptoms otherwise as reviewed discharge. Patient is in agreement. - Vital Signs Vital signs: Temp Pulse Resp BP Pulse Ox 98.2 F 69 20 130/72 H 96 12/27/17 12:01 12/27/17 12:01 12/27/17 12:01 12/27/17 12:01 12/27/17 12:01 Discharge - Discharge Clinical Impression: Abrasion of left arm Qualifiers: Encounter type: initial encounter Qualified Code(s): S40.812A - Abrasion of left upper arm, initial encounter Condition: Stable Disposition: HOME, SELF-CARE Additional Instructions: Keep the skin clean Wash with soap and water Tylenol/ibuprofen if needed Triple antibiotic ointment daily Dressing changes as directed Take medication as directed Monitor for any worsening symptoms Recheck with your PCM in 2-3 days Return to the ED with any worsening symptoms and/or development of fever, headache, chest pain, palpitations, syncope, shortness of breath, trouble breathing, abdominal pain, n/v/d, abscess, purulent discharge, red streaks, worsening swelling, or other worsening symptoms that are concerning to you. Forms: Elevated Blood Pressure Referrals: THADDEUS SANCHEZ MD [ACTIVE STAFF] - Follow up as needed
[2017-12-27 13:33] VITALS: BP 151/77
== END 2017-12-27 13:34 | disposition home or self-care (01) ==
LOC: ER 11:55
DX: S40.812A Abrasion of left upper arm, initial encounter (principal); X58.XXXA Exposure to other specified factors, initial encounter
CPT/HCPCS: 99282

== ENCOUNTER 2017-12-31 22:32 | Emergency (ER) | payer MEDICARE ==
--- NOTE | 2018-01-01 00:04 | ER Document Report ---
ED Blood Pressure Problem - General Chief Complaint: High Blood Pressure Stated Complaint: BLOOD PRESSURE PROBLEMS Time Seen by Provider: 12/31/17 23:39 Mode of Arrival: Ambulatory Information source: Patient TRAVEL OUTSIDE OF THE [place] IN LAST 30 DAYS: No - HPI Patient complains to provider of: High blood pressure Onset: This evening Onset/Duration: Better Quality of pain: Achy Severity: Mild Pain Level: 1 Problem is: Chronic problem Pt currently taking medication for problem: Yes Associated symptoms: Headache Notes: Patient is a 77-year-old male with a history of hypertension who presents to the emergency room tonight complaining of blood pressure 191/114 measured at home with pressure in his head, he also reports some pain in his left shoulder but has a history of shoulder pain from bone spurs in his pain tonight is consistent with that, he denies any blurred vision, no chest pain or shortness of breath, he did call his postulant who told him to take an extra dose of his benazepril which patient did, then took his regular evening medications, blood pressure on arrival to the emergency department is 154/81, he reports feeling much better at this time but continues to have slight pressure in his head - Related Data Allergies/Adverse Reactions: No Known Allergies Allergy (Verified 12/31/17 23:47) Past Medical History - General Information source: Patient - Social History Smoking Status: Former Smoker Chew tobacco use (# tins/day): No Frequency of alcohol use: None Drug Abuse: None Family History: COPD Patient has suicidal ideation: No Patient has homicidal ideation: No - Past Medical History Cardiac Medical History: Reports: Hx Hypercholesterolemia - controlled by meds, Hx Hypertension - 12 yrs Denies: Hx Coronary Artery Disease, Hx Heart Attack Pulmonary Medical History: Reports: Hx Pneumonia Denies: Hx Asthma, Hx Bronchitis, Hx COPD Neurological Medical History: Denies: Hx Cerebrovascular Accident, Hx Seizures Endocrine Medical History: Reports: Hx Hypothyroidism Renal/ Medical History: Reports: Hx Benign Prostatic Hyperplasia. Denies: Hx Peritoneal Dialysis GI Medical History: Reports: Hx Gastroesophageal Reflux Disease, Hx Hiatal Hernia - 30 years ago Musculoskeltal Medical History: Reports Hx Arthritis - shoulders,knees,ribs Past Surgical History: Reports: Hx Adenoidectomy, Hx Coronary Artery Bypass Graft - 10 YRS AGO, Hx Open Heart Surgery - 2000, Hx Tonsillectomy. Denies: Hx Pacemaker - Immunizations Immunizations up to date: Yes Hx Diphtheria, Pertussis, Tetanus Vaccination: - unk Hx Pneumococcal Vaccination: 07/16/16 Review of Systems - Review of Systems Constitutional: No symptoms reported EENT: No symptoms reported Cardiovascular: No symptoms reported Respiratory: No symptoms reported Gastrointestinal: No symptoms reported Genitourinary: No symptoms reported Male Genitourinary: No symptoms reported Musculoskeletal: See HPI Skin: No symptoms reported Hematologic/Lymphatic: No symptoms reported Neurological/Psychological: Headaches -: Yes All other systems reviewed and negative Physical Exam - Vital signs Vitals: Temp Pulse Resp BP Pulse Ox 97.9 F 69 16 154/81 H 96 12/31/17 22:44 12/31/17 22:44 12/31/17 22:44 12/31/17 22:44 12/31/17 22:44 Interpretation: Normal - General General appearance: Appears well, Alert - HEENT Head: Normocephalic, Atraumatic Eyes: Normal Pupils: PERRL - Respiratory Respiratory status: No respiratory distress Chest status: Nontender Breath sounds: Normal Chest palpation: Normal - Cardiovascular Rhythm: Regular Heart sounds: Normal auscultation Murmur: No - Abdominal Inspection: Normal Distension: No distension Bowel sounds: Normal Tenderness: Nontender Organomegaly: No organomegaly - Back Back: Normal, Nontender - Extremities General upper extremity: Normal inspection, Nontender, Normal color, Normal ROM , Normal temperature General lower extremity: Normal inspection, Nontender, Normal color, Normal ROM , Normal temperature, Normal weight bearing. No: Car's sign - Neurological Neuro grossly intact: Yes Cognition: Normal Orientation: AAOx4 Toby Coma Scale Eye Opening: Spontaneous [place] Coma Scale Verbal: Oriented [place] Coma Scale Motor: Obeys Commands [place]y Coma Scale Total: 15 Speech: Normal Motor strength normal: LUE, RUE, LLE, RLE Sensory: Normal - Psychological Associated symptoms: Normal affect, Normal mood - Skin Skin Temperature: Warm Skin Moisture: Dry Skin Color: Normal Course - Re-evaluation Re-evalutation: 01/01/18 01:57 Patient resting comfortably, imaging and EKG findings discussed at bedside which are unremarkable, blood pressure significantly improved, patient discharged with instructions for follow-up and advised to return if his symptoms worsen, patient acknowledges understanding and agreement with this plan - Vital Signs Vital signs: Temp Pulse Resp BP Pulse Ox 98 F 63 18 144/79 H 98 01/01/18 01:24 01/01/18 01:24 01/01/18 01:24 01/01/18 01:24 01/01/18 01:24 - Diagnostic Test Radiology reviewed: Image reviewed, Reports reviewed - EKG Interpretation by Me EKG shows normal: Sinus rhythm Rate: Normal Rhythm: NSR, PVC's Heart block present: 1st Degree Discharge - Discharge Clinical Impression: Hypertension Qualifiers: Hypertension type: unspecified Qualified Code(s): I10 - Essential (primary) hypertension Condition: Stable Disposition: HOME, SELF-CARE Instructions: High Blood Pressure ([facility]) Additional Instructions: Follow up with your primary care provider in one to 2 days. Return to the emergency room immediately if symptoms worsen or any additional concerns. Referrals: SHADIA AZAR PA-C [Primary Care Provider] - Follow up as needed
--- NOTE | 2018-01-01 01:12 | RADIOLOGY REPORT (SQ) ---
EXAM DESCRIPTION: CT HEAD WITHOUT CLINICAL HISTORY: headache COMPARISON: None available TECHNIQUE: Axial CT of the head obtained from the skull apex to the skull base without contrast. FINDINGS: No acute intracranial hemorrhage identified. No mass, mass effect, shift of the midline, abnormal extra-axial fluid collection or CT evidence of acute ischemic change identified. The ventricular system and sulcal spaces are mildly enlarged compatible with mild cerebral atrophy. Scattered areas of hypodensity throughout the supratentorial white matter are nonspecific and may be related to chronic small vessel ischemic change. The visualized paranasal sinuses and the mastoids are clear. No skull fracture identified. Visualized orbits and globes are unremarkable. Atherosclerotic calcification of the intracranial internal carotid arteries. DLP:1017.17 mGy-cm IMPRESSION: 1. No acute intracranial abnormality by CT criteria. This exam was performed according to our departmental dose-optimization program, which includes automated exposure control, adjustment of the mA and/or kV according to patient size and/or use of iterative reconstruction technique.
[2018-01-01 01:25] VITALS: BP 144/79
--- NOTE | 2018-01-01 09:14 | EKG REPORT ---
SEVERITY:- ABNORMAL ECG - SINUS RHYTHM MULTIPLE VENTRICULAR PREMATURE COMPLEXES FIRST DEGREE AV BLOCK BORDERLINE T ABNORMALITIES, INFERIOR LEADS : Confirmed by: Rosalio Sainz 01-Jan-2018 09:13:16
== END 2018-01-01 01:25 | disposition home or self-care (01) ==
LOC: ER 22:32
DX: I10 Essential (primary) hypertension (principal); M25.512 Pain in left shoulder; Z79.899 Other long term (current) drug therapy; Z87.891 Personal history of nicotine dependence
CPT/HCPCS: 70450; 93005; 93010; 99284

== ENCOUNTER 2018-04-16 07:20 | Day surgery (SDC) | payer MEDICARE ==
[2018-04-09 09:56] LABS: APPEARANCE,URINE SLIGHTLY-CLOUDY; BILIRUBIN,URINE NEGATIVE (NEGATIVE); GLUCOSE, URINE NEGATIVE (NEGATIVE); KETONES,URINE NEGATIVE (NEGATIVE); LEUKOCYTE ESTERASE,URINE NEGATIVE (NEGATIVE); NITRITE,URINE NEGATIVE (NEGATIVE); PROTEIN,URINE NEGATIVE (NEGATIVE); URINE SPECIFIC GRAVITY 1.019; UROBILINOGEN,URINE NEGATIVE mg/dL (<2.0)
[2018-04-09 09:59] LABS: HEMATOCRIT 38.1 % (37.9-51.0); HEMOGLOBIN 12.9 g/dL (13.5-17.0); MEAN CORPUSCULAR HEMOGLOBIN 32.2 pg (27.0-33.4); MEAN CORPUSCULAR HGB CONC 33.9 g/dL (32.0-36.0); MEAN CORPUSCULAR VOLUME 95 fl (80-97); PLATELET COUNT 229 10^3/uL (150-450); RED BLOOD COUNT 4.01 10^6/uL (4.35-5.55); WHITE BLOOD COUNT 7.9 10^3/uL (4.0-10.5)
[2018-04-09 10:02] LABS: COLOR,URINE YELLOW
[2018-04-09 10:28] LABS: ANION GAP 13 (5-19); BLOOD UREA NITROGEN 16 mg/dL (7-20); CALCIUM 9.1 mg/dL (8.4-10.2); CARBON DIOXIDE 28 mmol/L (22-30); CHLORIDE 94 mmol/L (98-107); GLUCOSE 103 mg/dL (75-110); POTASSIUM 4.3 mmol/L (3.6-5.0); SODIUM 135.4 mmol/L (137-145)
--- NOTE | 2018-04-09 11:06 | RADIOLOGY REPORT (SQ) ---
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 TECHNIQUE: Frontal and lateral radiographic views of the chest acquired. LIMITATIONS: None. FINDINGS: LUNGS AND PLEURA: No opacities, masses or pneumothorax. No pleural effusion. MEDIASTINUM AND HILAR STRUCTURES: No masses or contour abnormalities. HEART AND VASCULATURE: Heart normal size. No evidence for failure. Prior CABG. BONES: No acute findings. HARDWARE: CABG hardware. OTHER: No other significant finding. IMPRESSION: NO SIGNIFICANT RADIOGRAPHIC FINDING IN THE CHEST. PRIOR CABG. TECHNICAL DOCUMENTATION: JOB ID: [id number] [email or web address] All Rights Reserved Reading location - IP/workstation name: [email or web address]
--- NOTE | 2018-04-10 00:02 | EKG REPORT ---
SEVERITY:- ABNORMAL ECG - SINUS RHYTHM FIRST DEGREE AV BLOCK INFERIOR INFARCT, OLD CONSIDER POSTERIOR WALL INVOLVEMENT : Confirmed by: Zaynab Rivera MD 10-Apr-2018 00:01:34
[~2018-04-16 07:20] MED LIST: CEFAZOLIN 2 GM/D5W RTU 2 GM/50 ML RTUPB IV PRN; LACTATED RINGERS 1000 ML IV PRN; LIDOCAINE 0.5% INJ-PF (5 MG/ML) 50 ML SDV SUBCUT PRN
[2018-04-16] MEDS ORDERED: EPINEPHRINE INJ/PF 1 MG/1 ML AMPULE ONE (07:24)
[2018-04-16] MEDS ORDERED: BUPIVACAINE HCL 0.5 % INJ/PF 30 ML SDV ONE (07:24)
[2018-04-16] MEDS ORDERED: ALBUTEROL SULFATE 0.083% NEB 2.5 MG/3 ML AMPUL NEB ONE (07:58)
[2018-04-16] MEDS ORDERED: FENTANYL CITRATE INJ/PF 100 MCG/2 ML AMPUL ONE ×2 (09:56→09:57)
[2018-04-16] MEDS ORDERED: LIDOCAINE 2% INJ-PF (20 MG/ML) 10 ML AMPUL ONE (09:56)
[2018-04-16] MEDS ORDERED: PROPOFOL INJ 200 MG/20 ML VIAL IV ONE (09:58)
[2018-04-16] MEDS ORDERED: MIDAZOLAM 2 MG/2 ML INJ ONE (09:58)
[2018-04-16] MEDS ORDERED: ONDANSETRON HCL INJ/PF 4 MG/2 ML SDV ONE (09:58)
[2018-04-16] MEDS ORDERED: DEXAMETHASONE SOD PHOSPHATE INJ 4 MG/1 ML VIAL ONE (09:58)
[2018-04-16] MEDS ORDERED: ACETAMINOPHEN 1,000 MG/100 ML RTUPB IV ONE (09:58)
[2018-04-16] MEDS ORDERED: EPHEDRINE SULFATE INJ 50 MG/1 ML AMPULE ONE (09:58)
[2018-04-16] MEDS ORDERED: KETOROLAC TROMETHAMINE 60 MG/2 ML SDV ONE (09:58)
[2018-04-16] MEDS ORDERED: ONDANSETRON HCL INJ/PF 4 MG/2 ML SDV IV PRN (11:59)
[2018-04-16] MEDS ORDERED: OXYCODONE-ACETAMINOPHEN 5-325 MG TABLET PO PRN ×4 (11:59→13:16)
[2018-04-16] MEDS ORDERED: MEPERIDINE HCL/PF INJ 25 MG/1 ML DISP.SYRIN IV PRN (11:59)
[2018-04-16] MEDS ORDERED: MORPHINE SULFATE 10 MG/ML INJ IV PRN (11:59)
[2018-04-16] MEDS ORDERED: DIPHENHYDRAMINE HCL 50 MG/ML VIAL IV PRN (11:59)
[2018-04-16] MEDS ORDERED: FENTANYL CITRATE INJ/PF 100 MCG/2 ML AMPUL IV PRN ×3 (11:59)
[2018-04-16] MEDS ORDERED: PROMETHAZINE HCL INJ 25 MG/1 ML VIAL IV PRN ×2 (11:59)
--- NOTE | 2018-04-16 13:15 | Discharge Summary ---
Discharge Summary (SDC) - Discharge Final Diagnosis: Left shoulder arthroscopic rotator cuff repair and biceps tenodesis Date of Surgery: 04/16/18 Discharge Date: 04/16/18 Condition: Good Treatment or Instructions: Patient is instructed to follow up in 10-14 days. Patient instructed to remove dressing in 4 days then can shower and apply Band- Aids as needed. Patient to wear sling for comfort but okay to remove for shower and pendulum exercises. Pendulum exercises are instructed to be done several times a day ideally with breakfast, lunch, dinners and showers. Patient instructed to call if there is any signs of redness or drainage fevers or chills. Prescriptions: Oxycodone HCl/Acetaminophen [Percocet 5-325 mg Tablet] 1 - 2 tab PO ASDIR PRN # 40 tablet PRN Reason: Referrals: SHADIA AZAR PA-C [Primary Care Provider] - Discharge Diet: As Tolerated Respiratory Treatments at Home: Deep Breathing/Coughing Discharge Activity: No Driving, No Lifting/Push/Pulling, Slowly Increase Activity, Walk Frequently Home Care Assistance: None Needed Report the Following to Your Physician Immediately: Shortness of Breath, Vomiting, Increase in Pain, Fever over 101 Degrees, Unusual Bleeding, Redness, Swelling, Warmth, Drainage-Yellow, Drainage-Narayanan, Drainage-Green, Drainage-Foul Smelling
--- NOTE | 2018-04-16 13:29 | Operative Report ---
Operative Report DATE OF SURGERY: 04/16/18 PREOPERATIVE DIAGNOSIS: Left shoulder full-thickness rotator cuff tear. Biceps partial tear. Mild glenohumeral joint osteoarthritis POSTOPERATIVE DIAGNOSIS: Same OPERATION: Left shoulder arthroscopic extensive debridement, rotator cuff repair , biceps tenodesis SURGEON: ANTHONY PERSON ANESTHESIA: GA TISSUE REMOVED OR ALTERED: Partial portion of the long head of biceps removed COMPLICATIONS: None ESTIMATED BLOOD LOSS: Less than 20 mL INTRAOPERATIVE FINDINGS: As above PROCEDURE: IMPLANTS: 5.5 bio composite corkscrew and 4.75 mm bio composite swivel lock DESCRIPTION OF PROCEDURE: Patient was brought to the operating room placed in supine position. After successfully induced and intubated the patient patient was placed in the beachchair position the head and endotracheal tube was secured appropriately. The left shoulder was prepped and draped in a normal surgical fashion. A timeout was done identifying the left shoulder as the correct site. After inflating the glenohumeral joint with sterile saline solution an 11 blade was used to establish the posterior portal. The arthroscope was introduced and return of fluid was seen showing that we successfully penetrated the glenohumeral joint. With the use of spinal needle we're able to alina the anterior portal and using an 11 blade able to establish anterior portal. A cannula was introduced through the anterior portal. At this point diagnostic scope was done. At first glance patient had a mild osteoarthritis diffusely of the glenoid and humeral head. The biceps was partially torn and also had a component of the attachment of the superior glenoid. I turned my attention to the rotator cuff was evidence of showing the full-thickness rotator cuff tear. The articulation was intact. No loose bodies. A lateral portal was established 11 blade. [place] cannula was introduced to secure the lateral portal. 4.0mm shaver was introduced and was used to debride edges of the tear as well as bur the bone for preparation of anchor placement. Once I was satisfied with the preparation I then redirected my scope into the subacromial space. Patient did have some significant bursitis requiring resection with the radio frequency ablator and shaver. A percutaneous incision was then just adjacent to the acromion on the lateral aspect. Through this percutaneous hole the awl was used to prepare the hole for an anchor. [place] was percutaneously sent flushed with the bone just adjacent to the articular margin. Sutures were passed through the anterior portal for proper suture management. With the use of the scorpion and I proceeded to pass the sutures through the rotator cuff tendon with proper suture management was able to pass the strands either through percutaneous hole or the anterior portal. Once I was satisfied with placement of all my sutures I then proceeded to do my arthroscopic knots. At this point the strands were used to do our lateral row. 1 bicomposite swivel lock were used for the lateral row fixation. Lateral aspect of the humerus was then cleaned off with a shaver and electrocautery. Once identified placement of the swivel lock, I proceeded to use my awl to do my hole. This this point the sutures were adequately tensioned and secured. Swivel lock was inserted and screwed in, securing and increasing the footprint of the rotator cuff repair. Remaining strands were cut with the arthroscopic cutter. Final pictures were taking showing my repair. At this point fluid from the shoulder was removed camera and instruments were all removed. I turned my attention to the subpectoralis biceps tenodesis portion of the case. I used a 15 blade and did a inch and a half incision on the anterior aspect of the arm adjacent to the axillary fold. I used electrocautery to obtain hemostasis of the subcutaneous tissue bleed. I used Metzenbaum scissors and 2 pierced and split the fascial tissue covering the biceps and deltoid. I used then combination of my finger and 90 clamp to palpate the long head of biceps and bicipital groove and capturing hook the tendon that was tenotomized. This was pulled through my incision successfully. I used a fiber loop to then secure my muscular tendinous portion which was approximately 2 cm. The remaining biceps was cut and discarded. The loop was, and the 2 strands were then fed through the tenodesis button. These were secured and then I proceeded to use Homans to expose the side of the humeral shaft and was able to used a 4 mm spade tip guidepin to drill the anterior cortex. This was removed and then the loaded button was then inserted and then removing the disposable portion was able to flip the button and securing the biceps onto the anterior cortex of the humerus. Half hitch knots were done to further secure the biceps. Remaining strand was cut with a fiber wire scissors. I used 0 Vicryl to approximate the subcutaneous tissue. I used 3-0 nylon to do closure of my incision. I proceeded to close my portal sites with 3 -0 nylon. Xeroform 4 x 4 dressing followed by ABDs pads and Medipore tape was applied. Patient was placed in a sling and returned to supine position where he was successfully extubated and taken to PACU in stable condition.
[2018-04-16] MEDS: FENTANYL CITRATE INJ/PF 100 MCG/2 ML AMPUL ONE ×2 (13:30→13:35)
[2018-04-16] MEDS ORDERED: PROMETHAZINE HCL INJ 25 MG/1 ML VIAL ONE (13:50)
[2018-04-16] MEDS ORDERED: METOCLOPRAMIDE HCL INJ/PF 10 MG/2 ML SDV ONE (14:44)
[2018-04-16] MEDS ORDERED: SUCCINYLCHOLINE CHLORIDE INJ 200 MG/10 ML VIAL ONE (15:47)
[2018-04-16 16:36] VITALS: BP 133/79
== END 2018-04-16 16:25 | disposition home or self-care (01) ==
LOC: OROUT 07:20
PROVIDERS: ATTEND Orthopaedic Surgery
DX: M75.122 Complete rotator cuff tear or rupture of left shoulder, not specified as traumatic (principal); S46.112A Strain of muscle, fascia and tendon of long head of biceps, left arm, initial encounter; X58.XXXA Exposure to other specified factors, initial encounter; M19.012 Primary osteoarthritis, left shoulder; M25.512 Pain in left shoulder; E03.9 Hypothyroidism, unspecified; E78.00 Pure hypercholesterolemia, unspecified; J44.9 Chronic obstructive pulmonary disease, unspecified; I10 Essential (primary) hypertension; C61 Malignant neoplasm of prostate; Z79.899 Other long term (current) drug therapy; Z79.82 Long term (current) use of aspirin; Z01.818 Encounter for other preprocedural examination
CPT/HCPCS: 93005; 36415; 85027; 80048; 81001; 71046; 93010; 94640; 29823; 29827; 29828; C1713 ×3; J2250; J3490 ×3; J1100; J0171; J1885; J3010; J2765; A9270 ×2; J2550; J0330; J2405; J2704; J0690; J0131; 1630

== ENCOUNTER 2018-09-25 04:59 | Emergency (ER) | payer MEDICARE ==
[2018-09-25] MEDS ORDERED: METHYLPREDNISOLONE INJ 125 MG/2 ML SDV IV ONE (06:30)
[2018-09-25] MEDS ORDERED: FAMOTIDINE INJ/PF 20 MG/2 ML SDV IV ONE (06:31)
[2018-09-25] MEDS ORDERED: DIPHENHYDRAMINE HCL 50 MG/ML VIAL IV ONE (06:31)
--- NOTE | 2018-09-25 07:03 | ER Document Report ---
ED General - General Chief Complaint: Allergic Reaction Stated Complaint: POSSIBLE ALLERGIC REACTION Time Seen by Provider: 09/25/18 06:06 Notes: 78-year-old male presents to the ER complaining of itching rash hives. The patient about 4 or 5 years ago had a reaction to shrimp. He has not eaten any shrimp up until this week. He ate shrimp 2 nights in a row. And he began noticing yesterday that he began having hives and swelling. A little bit of facial swelling around the eyes. Hives on his trunk and groin. Hand swelling. The patient denies any problems swallowing no difficulty breathing. He has not tried anything at home. TRAVEL OUTSIDE OF THE [place] IN LAST 30 DAYS: No - Related Data Allergies/Adverse Reactions: No Known Allergies Allergy (Verified 04/09/18 10:27) Past Medical History - Social History Smoking Status: Former Smoker Chew tobacco use (# tins/day): No Frequency of alcohol use: Occasional Drug Abuse: None Family History: COPD Patient has suicidal ideation: No Patient has homicidal ideation: No - Past Medical History Cardiac Medical History: Reports: Hx Coronary Artery Disease - HIGH CHOLESTEROL, Hx Hypercholesterolemia - controlled by meds, Hx Hypertension Denies: Hx Heart Attack Pulmonary Medical History: Reports: Hx Pneumonia Denies: Hx Asthma, Hx Bronchitis, Hx COPD Neurological Medical History: Denies: Hx Cerebrovascular Accident, Hx Seizures Endocrine Medical History: Reports: Hx Hypothyroidism Renal/ Medical History: Reports: Hx Benign Prostatic Hyperplasia. Denies: Hx Peritoneal Dialysis GI Medical History: Reports: Hx Gastroesophageal Reflux Disease, Hx Hiatal Hernia - 30 years ago Musculoskeletal Medical History: Reports Hx Arthritis - shoulders,knees,ribs Past Surgical History: Reports: Hx Adenoidectomy, Hx Coronary Artery Bypass Graft - 10 YRS AGO, Hx Open Heart Surgery - 2000, Hx Tonsillectomy. Denies: Hx Pacemaker - Immunizations Immunizations up to date: Yes Hx Diphtheria, Pertussis, Tetanus Vaccination: Yes Hx Pneumococcal Vaccination: 07/16/16 Review of Systems - Review of Systems Constitutional: denies: Chills, Fever EENT: denies: Difficulty swallowing, Throat swelling Cardiovascular: denies: Dyspnea Respiratory: denies: Short of breath Skin: Rash -: Yes All other systems reviewed and negative Physical Exam - Vital signs Vitals: Temp Pulse Resp BP Pulse Ox 97.7 F 61 20 177/82 H 95 09/25/18 05:07 09/25/18 05:07 09/25/18 05:07 09/25/18 05:07 09/25/18 05:07 - Notes Notes: GENERAL_APPEARANCE: well_nourished, alert, cooperative VITALS: reviewed, see vital signs table. HEAD: no_swelling\tenderness on the head. EYES: conjunctiva_clear. NOSE: no_nasal_discharge. MOUTH: (-)decreased moisture. No drooling or stridor THROAT: no_tonsilar_inflammation, no_airway_obstruction. no_lymphadenopathy NECK: supple, no_neck_tenderness, (-)thyromegaly. BACK: no_back_tenderness. CHEST_WALL: no_chest_tenderness. LUNGS: no_wheezing, no_rales, no_rhonchi, (-)accessory muscle use, good air exchange bilateral. HEART: normal_rate, normal_rhythm, normal_S1, normal_S2, (-)S3, (-)S4, no_murmur, no_rub. ABDOMEN: soft, no_abd_tenderness, (-)guarding, (-)rebound, no_organomegaly, no_abd_masses. EXTREMITIES:good pulses in all_extremities, no_swelling\tenderness in the extremities, no_edema. SKIN: warm, dry, good_color, urticaria on trunk arms neck extremities, no blistering or sloughing of skin MENTAL_STATUS: speech_clear, oriented_X_3, normal_affect, responds_appropriately to questions. Course - Re-evaluation Re-evalutation: 09/25/18 07:02 78-year-old male presents with allergic reaction to shellfish. He was given steroids and antihistamines. He will be monitored. This appears to be dermatological only. He has no drooling no stridor no throat swelling no uvular swelling. No wheezing. We will give him the medications and observe him. I stressed to him the importance of avoiding shellfish after this. 09/25/18 08:53 Patient was reevaluated and is feeling better I will discharge him home on Vistaril. Again spoke with him about avoiding shellfish. - Vital Signs Vital signs: Temp Pulse Resp BP Pulse Ox 97.7 F 61 20 149/79 H 95 09/25/18 05:07 09/25/18 05:07 09/25/18 05:07 09/25/18 08:28 09/25/18 05:07 Discharge - Discharge Clinical Impression: Allergic reaction Qualifiers: Encounter type: initial encounter Qualified Code(s): T78.40XA - Allergy, unspecified, initial encounter Condition: Good Disposition: HOME, SELF-CARE Instructions: Acute Allergic Reaction ([facility]) Prescriptions: Hydroxyzine Pamoate [Vistaril 25 mg Capsule] 25 mg PO TID PRN #30 capsule PRN Reason: itching rash Referrals: SHADIA AZAR PA-C [Primary Care Provider] - Follow up as needed
[2018-09-25 09:01] VITALS: BP 164/72
== END 2018-09-25 09:32 | disposition home or self-care (01) ==
LOC: ER 04:59
DX: L50.0 Allergic urticaria (principal); T78.40XA Allergy, unspecified, initial encounter; X58.XXXA Exposure to other specified factors, initial encounter; I25.10 Atherosclerotic heart disease of native coronary artery without angina pectoris; E78.00 Pure hypercholesterolemia, unspecified; I10 Essential (primary) hypertension; E03.9 Hypothyroidism, unspecified; Z91.013 Allergy to seafood
CPT/HCPCS: 99283; 96374; 96375; J1200; J2930; S0028

== ENCOUNTER 2019-01-12 18:02 | Emergency (ER) | payer MEDICARE ==
[2019-01-12] MEDS ORDERED: ASPIRIN 81 MG TABLET, CHEWABLE PO ONE (18:55)
[2019-01-12] MEDS ORDERED: NORMAL SALINE 1000 ML 1,000 ML IV ONE (18:58)
[2019-01-12] MEDS ORDERED: ONDANSETRON HCL INJ/PF 4 MG/2 ML SDV IV ONE (18:59)
--- NOTE | 2019-01-12 19:01 | ER Document Report ---
ED Medical Screen (RME) - General Chief Complaint: Chest Pain Stated Complaint: CHEST PAIN Time Seen by Provider: 01/12/19 18:46 Primary Care Provider: SHADIA AZAR PA-C [Primary Care Provider] - Follow up as needed TRAVEL OUTSIDE OF THE [place] IN LAST 30 DAYS: No - HPI Notes: 01/12/19 18:59 Patient is a 78-year-old male with a history of coronary artery disease (triple bypass), hypertension, hypothyroidism, hypercholesterolemia who presents to the emergency department complaining of nausea and vomiting this afternoon with loose stool and abdominal cramping. Patient states that he also has left sternal chest pain/tightness that began about 6 hours ago and has been relatively constant since, but has slightly improved. Discomfort does not radiate. Denies drug allergies. Patient takes baby aspirin daily. No other blood thinning medications. Denies MACARIO, fever, neck pain, URI, palp, syncope, SOB, or rash. I have treated and performed a rapid initial assessment of this patient. A comprehensive ED assessment and evaluation of the patient, analysis of test results and completion of medical decision making process will be conducted by additional ED providers. PHYSICAL EXAMINATION: GENERAL: Well-appearing, well-nourished and in no acute distress. A&Ox4. Answers questions appropriately. LUNGS: Breath sounds clear to auscultation bilaterally and equal. No wheezes rales or rhonchi. HEART: Regular rate and rhythm without murmurs, rubs, gallops. Extremities: No cyanosis, clubbing, or edema b/l. No lower extremity asymmetry. Car negative bilaterally. NEUROLOGICAL: Normal speech, normal gait. PSYCH: Normal mood, normal affect. - Related Data Allergies/Adverse Reactions: No Known Allergies Allergy (Verified 04/09/18 10:27) Past Medical History - Past Medical History Cardiac Medical History: Reports: Hx Coronary Artery Disease - HIGH CHOLESTEROL, Hx Hypercholesterolemia - controlled by meds, Hx Hypertension Denies: Hx Heart Attack Pulmonary Medical History: Reports: Hx Pneumonia Denies: Hx Asthma, Hx Bronchitis, Hx COPD Neurological Medical History: Denies: Hx Cerebrovascular Accident, Hx Seizures Endocrine Medical History: Reports: Hx Hypothyroidism Renal/ Medical History: Reports: Hx Benign Prostatic Hyperplasia. Denies: Hx Peritoneal Dialysis GI Medical History: Reports: Hx Gastroesophageal Reflux Disease, Hx Hiatal Hernia - 30 years ago Musculoskeltal Medical History: Reports Hx Arthritis - shoulders,knees,ribs Past Surgical History: Reports: Hx Adenoidectomy, Hx Coronary Artery Bypass Graft - 10 YRS AGO, Hx Open Heart Surgery - 2000, Hx Tonsillectomy. Denies: Hx Pacemaker - Immunizations Immunizations up to date: Yes Hx Diphtheria, Pertussis, Tetanus Vaccination: Yes History of Influenza Vaccine for 06/2017 - 11/2017 Season: Yes Influenza Administration Date for 06/2017 - 11/2017 Season: 06/15/17 Physical Exam - Vital signs Vitals: Temp Pulse Resp BP Pulse Ox 98.7 F 74 20 163/77 H 95 01/12/19 18:16 01/12/19 18:16 01/12/19 18:16 01/12/19 18:16 01/12/19 18:16 Course - Vital Signs Vital signs: Temp Pulse Resp BP Pulse Ox 98.7 F 74 20 163/77 H 95 01/12/19 18:16 01/12/19 18:16 01/12/19 18:16 01/12/19 18:16 01/12/19 18:16 Doctor's Discharge - Discharge Referrals: SHADIA AZAR PA-C [Primary Care Provider] - Follow up as needed
--- NOTE | 2019-01-12 20:08 | RADIOLOGY REPORT (SQ) ---
EXAM DESCRIPTION: CHEST 2 VIEWS COMPLETED DATE/TIME: 01/12/2019 7:08 pm REASON FOR STUDY: CP COMPARISON: 08/24/2012 EXAM PARAMETERS: NUMBER OF VIEWS: two views TECHNIQUE: Digital Frontal and Lateral radiographic views of the chest acquired. RADIATION DOSE: NA LIMITATIONS: none FINDINGS: LUNGS AND PLEURA: No opacities, masses or pneumothorax. No pleural effusion. MEDIASTINUM AND HILAR STRUCTURES: No masses or contour abnormalities. HEART AND VASCULAR STRUCTURES: Heart normal size. No evidence for failure. BONES: No acute findings. HARDWARE: Sternotomy wires. OTHER: No other significant finding. IMPRESSION: NO ACUTE RADIOGRAPHIC FINDING IN THE CHEST. TECHNICAL DOCUMENTATION: JOB ID: [id number] [employer]- All Rights Reserved Reading location - IP/workstation name: [email or web address]
[2019-01-12 20:15] LABS: APPEARANCE,URINE SLIGHTLY-CLOUDY; BILIRUBIN,URINE NEGATIVE (NEGATIVE); GLUCOSE, URINE NEGATIVE (NEGATIVE); HEMATOCRIT 42.2 % (37.9-51.0); HEMOGLOBIN 13.8 g/dL (13.5-17.0); KETONES,URINE TRACE mg/dL (NEGATIVE); LEUKOCYTE ESTERASE,URINE NEGATIVE (NEGATIVE); MEAN CORPUSCULAR HEMOGLOBIN 30.4 pg (27.0-33.4); MEAN CORPUSCULAR HGB CONC 32.7 g/dL (32.0-36.0); MEAN CORPUSCULAR VOLUME 93 fl (80-97); NITRITE,URINE NEGATIVE (NEGATIVE); PLATELET COUNT 199 10^3/uL (150-450); PROTEIN,URINE NEGATIVE (NEGATIVE); RED BLOOD COUNT 4.54 10^6/uL (4.35-5.55); RED CELL DISTRIBUTION WIDTH 13.6 % (11.5-14.0); URINE SPECIFIC GRAVITY 1.025; WHITE BLOOD COUNT 9.7 10^3/uL (4.0-10.5)
[2019-01-12 20:17] LABS: COLOR,URINE DARK YELLOW
[2019-01-12 20:19] LABS: INTERNATIONAL RATION (INR) 0.92; PROTHROMBIN TIME 12.8 SEC (11.4-15.4)
[2019-01-12 20:36] LABS: ALANINE AMINOTRANSFERASE 49 U/L (21-72); ALBUMIN 4.5 g/dL (3.5-5.0); ALKALINE PHOSPHATASE 64 U/L (38-126); ANION GAP 12 (5-19); ASPARTATE AMINO TRANSFERASE 28 U/L (17-59); BILIRUBIN,DIRECT 0.2 mg/dL (0.0-0.4); BILIRUBIN,TOTAL 0.7 mg/dL (0.2-1.3); BLOOD UREA NITROGEN 20 mg/dL (7-20); CALCIUM 9.2 mg/dL (8.4-10.2); CARBON DIOXIDE 29 mmol/L (22-30); CHLORIDE 93 mmol/L (98-107); GLUCOSE 120 mg/dL (75-110); LIPASE 102.6 U/L (23-300); POTASSIUM 4.6 mmol/L (3.6-5.0); SODIUM 134.2 mmol/L (137-145); TOTAL PROTEIN 7.7 g/dL (6.3-8.2)
[2019-01-12 20:40] LABS: ABSOLUTE LYMPHOCYTES# (MANUAL) 0.2 10^3/uL (0.5-4.7); ABSOLUTE MONOCYTES # (MANUAL) 0.3 10^3/uL (0.1-1.4); ABSOLUTE NEUTROPHILS# (MANUAL) 9.2 10^3/uL (1.7-8.2); BASOPHILS % (MANUAL) 0 % (0-2); EOSINOPHILS % (MANUAL) 0 % (0-6); LYMPHOCYTES % (MANUAL) 2 % (13-45); MONOCYTES % (MANUAL) 3 % (3-13); SEGMENTED NEUTROPHILS % (MAN) 95 % (42-78); TOTAL CELLS COUNTED 100
[2019-01-12 20:41] LABS: PLATELET COMMENT ADEQUATE
--- NOTE | 2019-01-12 23:30 | EKG REPORT ---
SEVERITY:- ABNORMAL ECG - SINUS RHYTHM FIRST DEGREE AV BLOCK PROBABLE INFERIOR INFARCT, AGE INDETERMINATE CONSIDER POSTERIOR WALL INVOLVEMENT LATERAL LEADS ARE ALSO INVOLVED : Confirmed by: Rosalio Sainz 12-Jan-2019 23:29:13
--- NOTE | 2019-01-13 00:11 | ER Document Report ---
ED Cardiac - General Chief Complaint: Chest Pain Stated Complaint: CHEST PAIN Time Seen by Provider: 01/12/19 18:46 Primary Care Provider: SHADIA AZAR PA-C [Primary Care Provider] - Follow up as needed Notes: Patient is a 78-year-old male who presents to the emergency permit with a chief complaint of nausea, vomiting, diarrhea, and upset stomach. He states that his symptoms started this morning. He also did have a bout of chest pain this afternoon around noon. He has a past medical history of a CABG with a triple bypass. He also has a past medical history of hypertension, hypothyroidism, and hyperlipidemia and he received antinausea medication in triage. He says he feels significantly better. His chest pain was in the left side of his chest and he did have some tightness. He states that the chest pain has gone away. The pain did not radiate. He takes aspirin daily. Denies any miss of breath, difficulty breathing, or difficulty urinating. TRAVEL OUTSIDE OF THE [place] IN LAST 30 DAYS: No - Related Data Allergies/Adverse Reactions: No Known Allergies Allergy (Verified 04/09/18 10:27) Past Medical History - Social History Smoking Status: Former Smoker Family History: COPD Patient has suicidal ideation: No Patient has homicidal ideation: No - Past Medical History Cardiac Medical History: Reports: Hx Coronary Artery Disease - HIGH CHOLESTEROL, Hx Hypercholesterolemia - controlled by meds, Hx Hypertension Denies: Hx Heart Attack Pulmonary Medical History: Reports: Hx Pneumonia Denies: Hx Asthma, Hx Bronchitis, Hx COPD Neurological Medical History: Denies: Hx Cerebrovascular Accident, Hx Seizures Endocrine Medical History: Reports: Hx Hypothyroidism Renal/ Medical History: Reports: Hx Benign Prostatic Hyperplasia. Denies: Hx Peritoneal Dialysis GI Medical History: Reports: Hx Gastroesophageal Reflux Disease, Hx Hiatal Hernia - 30 years ago Musculoskeletal Medical History: Reports Hx Arthritis - shoulders,knees,ribs Past Surgical History: Reports: Hx Adenoidectomy, Hx Coronary Artery Bypass Graft - 10 YRS AGO, Hx Open Heart Surgery - 2000, Hx Tonsillectomy. Denies: Hx Pacemaker - Immunizations Immunizations up to date: Yes Hx Diphtheria, Pertussis, Tetanus Vaccination: Yes Hx Pneumococcal Vaccination: 07/16/16 Review of Systems - Review of Systems Notes: REVIEW OF SYSTEMS: CONSTITUTIONAL : Denies recent illness. Denies recent unintentional weight loss. Denies fever, chills, or sweats. EENT: Denies eye, ear, throat, or mouth pain, discharge, or symptoms. Denies nasal or sinus congestion. CARDIOVASCULAR: See HPI RESPIRATORY: Denies shortness of breath, cough, congestion, difficulty breathing, or wheezing. GASTROINTESTINAL: See HPI GENITOURINARY: Denies difficulty urinating, burning, blood in urine, urgency or frequency. MUSCULOSKELETAL: Denies neck and back pain. Denies joint pain or swelling. SKIN: Denies rash, itchiness, or lesions HEMATOLOGIC : Denies easy bruising or bleeding. LYMPHATIC: Denies swollen, painful, enlarged glands. NEUROLOGICAL: Denies no numbness or tingling denies weakness. Denies headache. Denies altered mental status. Denies alteration in speech. PSYCHIATRIC: Denies stress, anxiety, alteration in sleep patterns, or depression. All other systems reviewed and negative. Physical Exam - Vital signs Vitals: Temp Pulse Resp BP Pulse Ox 98.7 F 74 20 163/77 H 95 01/12/19 18:16 01/12/19 18:16 01/12/19 18:16 01/12/19 18:16 01/12/19 18:16 - Notes Notes: PHYSICAL EXAMINATION: GENERAL: Appears well, healthy, well-nourished, no acute distress. HEAD: Normocephalic, atraumatic. EYES: PERRL, conjunctiva normal, all extraocular movements intact, sclera nonicteric ENT: Moist mucous membranes. NECK: Supple, no noticeable swelling, redness, rash. Normal range of motion. LUNGS: Equal breath sounds bilaterally and clear to auscultation. No wheezes rales or rhonchi. CARDIOVASCULAR: S1-S2, regular rate, regular rhythm. Radial pulses 2+, normal. ABDOMEN: Normoactive bowel sounds. Soft, nontender, no guarding, no rebound tenderness, and no masses palpated. EXTREMITIES: Normal strength and range of motion, no pitting or edema. No cyanosis. NEUROLOGICAL: Moves all extremities upon command. Strength 5/5 in all extremities. PSYCH: Normal mood, normal affect. SKIN: Warm, dry. No rash, lesions, ulcerations noted. Normal skin turgor. Course - Re-evaluation Re-evalutation: 01/13/13/00:00 Patient states that he feels tremendously better than earlier. I suspect the patient has gastroenteritis. Due to his cardiac history, another troponin will be drawn. Another EKG will be done. He is in agreement with this plan. Chemistries are unremarkable. 01/13/19 01:20 Patient second troponin is negative again at this time. I suspect that his symptoms are due to a viral infection. He will be sent home with some Zofran. He is in agreement with this plan. He is to follow-up with his meal packer. Verbal discharge instructions were given to the patient. They verbalized understanding. They are stable for discharge. - Vital Signs Vital signs: Temp Pulse Resp BP Pulse Ox 98.7 F 74 20 163/77 H 95 01/12/19 18:16 01/12/19 18:16 01/12/19 18:16 01/12/19 18:16 01/12/19 18:16 - Laboratory Result Diagrams: 01/12/19 19:40 01/12/19 19:40 Laboratory results interpreted by me: 01/12/19 01/12/19 01/12/19 19:40 19:40 19:40 Seg Neuts % (Manual) 95 H Lymphocytes % (Manual) 2 L Abs Neuts (Manual) 9.2 H Abs Lymphs (Manual) 0.2 L Sodium 134.2 L Chloride 93 L Glucose 120 H Urine Ketones TRACE H Urine Urobilinogen 2.0 H - EKG Interpretation by Me Additional EKG results interpreted by me: EKG done January 12, 2019. 18: 11 Sinus rhythm with first-degree AV block. Rate 71; WI 224; QRS 96; QT 388; QTc [address] no change from previous EKG done on 04/09/2018. EKG done January 13, 2019 at 00: 24. Sinus rhythm with first-degree AV block. Rate 66; WI 228; QRS 98; QT 440; QTC 424 . Discharge - Discharge Clinical Impression: Nausea & vomiting Qualifiers: Vomiting type: unspecified Vomiting Intractability: non-intractable Qualified Code(s): R11.2 - Nausea with vomiting, unspecified Diarrhea Qualifiers: Diarrhea type: unspecified type Qualified Code(s): R19.7 - Diarrhea, unspecified Chest pain Qualifiers: Chest pain type: unspecified Qualified Code(s): R07.9 - Chest pain, unspecified Condition: Stable Disposition: HOME, SELF-CARE Additional Instructions: You were seen today in the emergency department for nausea, vomiting, diarrhea, and chest pain. Your labs are all normal. Please follow-up with your primary care provider in the next 3 to 5 days. Please follow-up with your meal packer in regards to this visit. You have been given Zofran, medication for nausea. Please take 1 tablet every 4-6 hours as needed. If you have worsening symptoms, develop worsening chest pain, or have any symptoms that are worrisome to you, please return to the emergency department. Referrals: SHADIA AZAR PA-C [Primary Care Provider] - Follow up in 3-5 days
[2019-01-13] MEDS ORDERED: ONDANSETRON ODT 4 MG TAB (6 TAB/ER DISP) PO PRN (01:20)
[2019-01-13 01:53] VITALS: BP 142/62
--- NOTE | 2019-01-13 23:09 | EKG REPORT ---
SEVERITY:- ABNORMAL ECG - SINUS RHYTHM FIRST DEGREE AV BLOCK CONSIDER INFERIOR INFARCT NONSPECIFIC T ABNORMALITIES, ANT-LAT LEADS : Confirmed by: Rosalio Sainz 13-Jan-2019 23:08:27
== END 2019-01-13 01:59 | disposition home or self-care (01) ==
LOC: ER 18:02
DX: R11.2 Nausea with vomiting, unspecified (principal); R19.7 Diarrhea, unspecified; R07.89 Other chest pain; I44.0 Atrioventricular block, first degree; I10 Essential (primary) hypertension; I25.10 Atherosclerotic heart disease of native coronary artery without angina pectoris; Z95.1 Presence of aortocoronary bypass graft; Z79.82 Long term (current) use of aspirin; Z87.891 Personal history of nicotine dependence; Z87.19 Personal history of other diseases of the digestive system
CPT/HCPCS: 93005 ×2; 99285; 96374; 36415; 83690; 85025; 85610; 80053; 81001; 84484; 71046; 93010 ×2; A9270 ×2; J2405; J7030; 96360

== ENCOUNTER → 2019-03-08 | Outpatient (CLI) | payer MEDICARE ==
[2019-03-08 09:44] LABS: HEMATOCRIT 38.1 % (37.9-51.0); HEMOGLOBIN 12.6 g/dL (13.5-17.0); MEAN CORPUSCULAR HEMOGLOBIN 30.6 pg (27.0-33.4); MEAN CORPUSCULAR HGB CONC 33.1 g/dL (32.0-36.0); MEAN CORPUSCULAR VOLUME 93 fl (80-97); PLATELET COUNT 197 10^3/uL (150-450); RED BLOOD COUNT 4.11 10^6/uL (4.35-5.55); RED CELL DISTRIBUTION WIDTH 13.5 % (11.5-14.0); WHITE BLOOD COUNT 6.9 10^3/uL (4.0-10.5)
[2019-03-08 10:16] LABS: ALANINE AMINOTRANSFERASE 36 U/L (21-72); ALBUMIN 4.1 g/dL (3.5-5.0); ALKALINE PHOSPHATASE 54 U/L (38-126); ANION GAP 10 (5-19); ASPARTATE AMINO TRANSFERASE 25 U/L (17-59); BILIRUBIN,DIRECT 0.3 mg/dL (0.0-0.4); BILIRUBIN,TOTAL 0.6 mg/dL (0.2-1.3); BLOOD UREA NITROGEN 18 mg/dL (7-20); CALCIUM 8.5 mg/dL (8.4-10.2); CARBON DIOXIDE 27 mmol/L (22-30); CHLORIDE 94 mmol/L (98-107); GLUCOSE 121 mg/dL (75-110); LIPASE 96.6 U/L (23-300); POTASSIUM 4.4 mmol/L (3.6-5.0); SODIUM 130.9 mmol/L (137-145); TOTAL PROTEIN 6.4 g/dL (6.3-8.2)
== END ==
LOC: OD 09:15
PROVIDERS: ATTEND Internal Medicine Gastroenterology
DX: R10.9 Unspecified abdominal pain (principal)
CPT/HCPCS: 36415; 80048; 80076; 83690; 85027

== ENCOUNTER 2019-07-11 15:57 | Emergency (ER) | payer MEDICARE ==
--- NOTE | 2019-07-11 16:13 | ER Document Report ---
ED Medical Screen (RME) - General Chief Complaint: Urinary Problem Stated Complaint: URINARY ISSUE Time Seen by Provider: 07/11/19 16:10 Primary Care Provider: SHADIA AZAR PA-C [Primary Care Provider] - Follow up as needed Notes: Patient is a 78-year-old male presents to the emergency department with slight dysuria and urinary frequency. Patient voices he does have a history of prostatitis. States he attempted to call his urologist today but was unable to get a hold of him. States last time this happened he was placed on antibiotics which is why he presents to the emergency room. Patient's denying any fevers, nausea, vomiting. Patient does admit to right back pain but states he thinks it is his hip. GENERAL: Alert, interacts well. No acute distress. ABDOMEN: Soft, slight suprapubic pain noted, otherwise abdominal exam benign. Non-distended. Bowel sounds present in all 4 quadrants. I have greeted and performed a rapid initial assessment of this patient. A comprehensive ED assessment and evaluation of the patient, analysis of test results and completion of the medical decision making process will be conducted by additional ED providers. I have specifically instructed the patient or family members with the patient to immediately return to any nursing staff should anything change in the patient's condition or with their chief complaint. This medical record was dictated with voice recognizing software. There may be grammatical, syntax errors that are unintended. TRAVEL OUTSIDE OF THE [place] IN LAST 30 DAYS: No - Related Data Allergies/Adverse Reactions: No Known Allergies Allergy (Verified 07/11/19 16:01) Past Medical History - Past Medical History Cardiac Medical History: Reports: Hx Coronary Artery Disease - HIGH CHOLESTEROL, Hx Hypercholesterolemia - controlled by meds, Hx Hypertension Denies: Hx Heart Attack Pulmonary Medical History: Reports: Hx Pneumonia Denies: Hx Asthma, Hx Bronchitis, Hx COPD Neurological Medical History: Denies: Hx Cerebrovascular Accident, Hx Seizures Endocrine Medical History: Reports: Hx Hypothyroidism Renal/ Medical History: Reports: Hx Benign Prostatic Hyperplasia. Denies: Hx Peritoneal Dialysis GI Medical History: Reports: Hx Gastroesophageal Reflux Disease, Hx Hiatal Hernia - 30 years ago Musculoskeltal Medical History: Reports Hx Arthritis - shoulders,knees,ribs Past Surgical History: Reports: Hx Adenoidectomy, Hx Coronary Artery Bypass Graft - 10 YRS AGO, Hx Open Heart Surgery - 2000, Hx Tonsillectomy. Denies: Hx Pacemaker - Immunizations Immunizations up to date: Yes Hx Diphtheria, Pertussis, Tetanus Vaccination: Yes Physical Exam - Vital signs Vitals: Temp Pulse Resp BP Pulse Ox 98.1 F 55 L 16 171/78 H 96 07/11/19 16:02 07/11/19 16:02 07/11/19 16:02 07/11/19 16:02 07/11/19 16:02 Course - Vital Signs Vital signs: Temp Pulse Resp BP Pulse Ox 98.1 F 55 L 16 171/78 H 96 07/11/19 16:02 07/11/19 16:02 07/11/19 16:02 07/11/19 16:02 07/11/19 16:02 Doctor's Discharge - Discharge Referrals: SHADIA AZAR PA-C [Primary Care Provider] - Follow up as needed
[2019-07-11] MEDS ORDERED: CIPROFLOXACIN HCL 500 MG TABLET PO ONE (16:41)
[2019-07-11 16:45] LABS: ABSOLUTE EOSINOPHILS # (AUTO) 0.3 10^3/uL (0.0-0.6); ABSOLUTE LYMPHOCYTES (AUTO) 1.4 10^3/uL (0.5-4.7); ABSOLUTE MONOCYTES (AUTO) 0.6 10^3/uL (0.1-1.4); ABSOLUTE NEUT (AUTO) 6.8 10^3/uL (1.7-8.2); BASOPHILS % (AUTO) 0.5 % (0-2); EOSINOPHILS % (AUTO) 3.7 % (0-6); HEMATOCRIT 37.7 % (37.9-51.0); HEMOGLOBIN 12.5 g/dL (13.5-17.0); LYMPHOCYTES % (AUTO) 15.4 % (13-45); MEAN CORPUSCULAR HEMOGLOBIN 30.8 pg (27.0-33.4); MEAN CORPUSCULAR HGB CONC 33.2 g/dL (32.0-36.0); MEAN CORPUSCULAR VOLUME 93 fl (80-97); MONOCYTES % (AUTO) 6.6 % (3-13); PLATELET COUNT 230 10^3/uL (150-450); RED BLOOD COUNT 4.07 10^6/uL (4.35-5.55); RED CELL DISTRIBUTION WIDTH 13.6 % (11.5-14.0); SEGMENTED NEUTROPHILS % (AUTO) 73.8 % (42-78); TOTAL CELLS COUNTED % (AUTO) 100 %; WHITE BLOOD COUNT 9.3 10^3/uL (4.0-10.5)
[2019-07-11 16:46] LABS: APPEARANCE,URINE CLEAR; BILIRUBIN,URINE NEGATIVE (NEGATIVE); COLOR,URINE YELLOW; GLUCOSE, URINE NEGATIVE (NEGATIVE); KETONES,URINE NEGATIVE (NEGATIVE); LEUKOCYTE ESTERASE,URINE NEGATIVE (NEGATIVE); NITRITE,URINE NEGATIVE (NEGATIVE); PROTEIN,URINE NEGATIVE (NEGATIVE); URINE SPECIFIC GRAVITY 1.021; UROBILINOGEN,URINE NEGATIVE mg/dL (<2.0)
--- NOTE | 2019-07-11 16:46 | ER Document Report ---
ED GI/ - General Chief Complaint: Urinary Problem Stated Complaint: URINARY ISSUE Time Seen by Provider: 07/11/19 16:10 Primary Care Provider: SHADIA AZAR PA-C [Primary Care Provider] - Follow up as needed Notes: HPI: Patient is a 78-year-old male with a past medical history of prostatitis. He has low-level cancer history of the prostate and is currently just being watched. He does have a urologist. He did call his urologist and has an upcoming appointment when he started to have some dysuria yesterday. No trouble urinating. He denies any nausea, vomiting, fevers, abdominal pain, or back pain. No history of kidney stones. Recent states "ciprofloxacin works the best" when asked about antibiotics. ROS: See HPI All other review of systems reviewed and otherwise negative Reviewed vital signs and nursing note as charted by RN. PHYSICAL EXAM: CONSTITUTIONAL: Alert and oriented and responds appropriately to questions. Well-appearing; well-nourished HEAD: Normocephalic; atraumatic CARD: Regular rate and rhythm; no murmurs; symmetric distal pulses RESP: Normal chest excursion without splinting or tachypnea; breath sounds clear and equal bilaterally ABD/GI: Normal bowel sounds; non-distended; soft, non-tender to deep palpation of all 4 quadrants of the abdomen GI/: Patient has no inguinal masses, testicular pain or swelling, penile lesions present. No discharge from the meatus. On rectal examination, patient has no obvious perirectal lesions. The prostate is slightly swollen with no palpable nodules. Slightly tender to palpation BACK: The back appears normal and is non-tender to palpation EXT: Normal ROM in all joints; non-tender to palpation; no edema SKIN: No acute lesions noted NEURO: CN 2-12 intact; 5/5 bilateral upper and lower extremity strength with sensation intact to light touch PSYCH: The patient's mood and manner are appropriate. Grooming and personal hygiene are appropriate. TRAVEL OUTSIDE OF THE [place] IN LAST 30 DAYS: No - Related Data Allergies/Adverse Reactions: No Known Allergies Allergy (Verified 07/11/19 16:01) Past Medical History - Social History Smoking Status: Former Smoker Family History: COPD Patient has suicidal ideation: No Patient has homicidal ideation: No - Past Medical History Cardiac Medical History: Reports: Hx Coronary Artery Disease - HIGH CHOLESTEROL, Hx Hypercholesterolemia - controlled by meds, Hx Hypertension Denies: Hx Heart Attack Pulmonary Medical History: Reports: Hx Pneumonia Denies: Hx Asthma, Hx Bronchitis, Hx COPD Neurological Medical History: Denies: Hx Cerebrovascular Accident, Hx Seizures Endocrine Medical History: Reports: Hx Hypothyroidism Renal/ Medical History: Reports: Hx Benign Prostatic Hyperplasia. Denies: Hx Peritoneal Dialysis GI Medical History: Reports: Hx Gastroesophageal Reflux Disease, Hx Hiatal Herni a - 30 years ago Musculoskeletal Medical History: Reports Hx Arthritis - shoulders,knees,ribs Past Surgical History: Reports: Hx Adenoidectomy, Hx Coronary Artery Bypass Graft - 10 YRS AGO, Hx Open Heart Surgery - 2000, Hx Tonsillectomy. Denies: Hx Pacemaker - Immunizations Immunizations up to date: Yes Hx Diphtheria, Pertussis, Tetanus Vaccination: Yes Hx Pneumococcal Vaccination: 07/16/16 Physical Exam - Vital signs Vitals: Temp Pulse Resp BP Pulse Ox 98.1 F 55 L 16 171/78 H 96 07/11/19 16:02 07/11/19 16:02 07/11/19 16:02 07/11/19 16:02 07/11/19 16:02 Course - Re-evaluation Re-evalutation: 07/11/19 16:44 Given the history and physical we will obtain urine analysis, general chemistry, urine culture, and start the patient on ciprofloxacin patient has an upcoming appointment with his urologist. I have explained to the patient that there was a prolonged course for prostatitis but I will give the patient two weeks of antibiotics that will carry him until he is able to see his urologist who may extend the antibiotics to 1 month. Labs as recorded. No obvious signs of infection. Given the patient's history we will follow the above plan with strict return precautions and follow-up with his urologist. - Vital Signs Vital signs: Temp Pulse Resp BP Pulse Ox 98.1 F 55 L 16 171/78 H 96 07/11/19 16:02 07/11/19 16:02 07/11/19 16:02 07/11/19 16:02 07/11/19 16:02 - Laboratory Result Diagrams: 07/11/19 16:17 07/11/19 16:17 Laboratory results interpreted by me: 07/11/19 07/11/19 16:17 16:17 RBC 4.07 L Hgb 12.5 L Hct 37.7 L Sodium 133.5 L Chloride 97 L Discharge - Discharge Clinical Impression: Prostatitis Qualifiers: Prostatitis type: unspecified Qualified Code(s): N41.9 - Inflammatory disease of prostate, unspecified Condition: Good Disposition: HOME, SELF-CARE Prescriptions: Ciprofloxacin HCl [Cipro 500 mg Tablet] 500 mg PO BID 14 Days #28 tablet Referrals: SHADIA AZAR PA-C [Primary Care Provider] - Follow up as needed
[2019-07-11 17:00] LABS: ALKALINE PHOSPHATASE 50 U/L (38-126); ANION GAP 10 (5-19); ASPARTATE AMINO TRANSFERASE 23 U/L (17-59); BILIRUBIN,DIRECT 0.2 mg/dL (0.0-0.4); BILIRUBIN,TOTAL 0.3 mg/dL (0.2-1.3); BLOOD UREA NITROGEN 17 mg/dL (7-20); CALCIUM 8.7 mg/dL (8.4-10.2); CARBON DIOXIDE 27 mmol/L (22-30); CHLORIDE 97 mmol/L (98-107); GLUCOSE 91 mg/dL (75-110); POTASSIUM 4.9 mmol/L (3.6-5.0); TOTAL PROTEIN 6.6 g/dL (6.3-8.2)
[2019-07-11 17:19] VITALS: BP 161/87
== END 2019-07-11 17:23 | disposition home or self-care (01) ==
LOC: ER 15:57
DX: N41.9 Inflammatory disease of prostate, unspecified (principal); R30.0 Dysuria; E78.00 Pure hypercholesterolemia, unspecified; E03.9 Hypothyroidism, unspecified; Z95.1 Presence of aortocoronary bypass graft
CPT/HCPCS: 99283; 36415; 87086; 85025; 80053; 81001; A9270

== ENCOUNTER 2019-10-07 18:35 | Emergency (ER) | payer MEDICARE ==
[2019-10-07] MEDS ORDERED: BENAZEPRIL HCL 10 MG TABLET PO ONE (19:19)
--- NOTE | 2019-10-07 19:22 | ER Document Report ---
ED Medical Screen (RME) - General Chief Complaint: Fall Injury Stated Complaint: FALL, FACIAL INJURY, HAND INJURY Time Seen by Provider: 10/07/19 19:11 Primary Care Provider: SHADIA AZAR PA-C [Primary Care Provider] - Follow up as needed Mode of Arrival: Ambulatory Information source: Patient Notes: Patient reports that he had a mechanical fall after tripping over cement in a parking lot. Patient states that he fell hitting his right knee, left hand and face. Patient does complain of upper back pain. Patient reports tetanus immunization is up-to-date at this time. Patient with laceration to left hand. Patient does have a history of hypertension and states that he has not yet taken his evening dose of his antihypertensive medication. I have greeted and performed a rapid initial assessment of this patient. A comprehensive ED assessment and evaluation of the patient, analysis of test results and completion of the medical decision making process will be conducted by additional ED providers. TRAVEL OUTSIDE OF THE [place] IN LAST 30 DAYS: No - Related Data Allergies/Adverse Reactions: No Known Allergies Allergy (Verified 07/11/19 16:01) Past Medical History - Past Medical History Cardiac Medical History: Reports: Hx Coronary Artery Disease - HIGH CHOLESTEROL, Hx Hypercholesterolemia - controlled by meds, Hx Hypertension Denies: Hx Heart Attack Pulmonary Medical History: Reports: Hx Pneumonia Denies: Hx Asthma, Hx Bronchitis, Hx COPD Neurological Medical History: Denies: Hx Cerebrovascular Accident, Hx Seizures Endocrine Medical History: Reports: Hx Hypothyroidism Renal/ Medical History: Reports: Hx Benign Prostatic Hyperplasia. Denies: Hx Peritoneal Dialysis GI Medical History: Reports: Hx Gastroesophageal Reflux Disease, Hx Hiatal Hernia - 30 years ago Musculoskeltal Medical History: Reports Hx Arthritis - shoulders,knees,ribs Past Surgical History: Reports: Hx Adenoidectomy, Hx Coronary Artery Bypass Graft - 10 YRS AGO, Hx Open Heart Surgery - 2000, Hx Tonsillectomy. Denies: Hx Pacemaker - Immunizations Immunizations up to date: Yes Hx Diphtheria, Pertussis, Tetanus Vaccination: Yes Physical Exam - Vital signs Vitals: Temp Pulse Resp BP Pulse Ox 97.7 F 61 16 232/92 H 97 10/07/19 18:52 10/07/19 18:52 10/07/19 18:52 10/07/19 18:52 10/07/19 18:52 - General General appearance: Appears well, Alert Notes: Patient with facial abrasions, nose injury, laceration to palmar surface of left fifth finger, upper thoracic midline tenderness Course - Vital Signs Vital signs: Temp Pulse Resp BP Pulse Ox 97.7 F 61 16 232/92 H 97 10/07/19 18:52 10/07/19 18:52 10/07/19 18:52 10/07/19 18:52 10/07/19 18:52 Doctor's Discharge - Discharge Referrals: SHADIA AZAR PA-C [Primary Care Provider] - Follow up as needed
--- NOTE | 2019-10-07 20:57 | RADIOLOGY REPORT (SQ) ---
EXAM DESCRIPTION: CT scan of the facial bones without contrast CLINICAL HISTORY: 79 years Male; fall, facial pain TECHNIQUE: High resolution axial CT of the face without contrast, with sagittal and coronal reformatted images. All CT scans at this facility use dose modulation, iterative reconstruction, and/or weight based dosing when appropriate to reduce radiation dose to as low as reasonably achievable. COMPARISON: None. FINDINGS: Bones: Facial bones are intact. Mandible is intact. Zygomatic arch and pterygoid plates are normal. Degenerative changes present in the cervical spine with marked narrowing and irregularity of the disc level at C3-4. There is 3 mm of C3-4 retrolisthesis. The tip of the nasal bones are deviated to the left but there is no associated fracture. Orbits and paranasal sinuses: The nasal septum is essentially midline. There is minimal mucosal thickening present in the roof of the maxillary sinuses bilaterally. No air-fluid levels. Globes are intact. No intra or extraconal abnormality. Soft tissues: Soft tissues of the face appear normal. Salivary glands are unremarkable. The airway is patent. Vascular calcifications are seen in the carotid bulb bilaterally. Other: In the visualized portion of the intracranial contents there is mild volume loss. IMPRESSION: 1. No facial bone fracture. 2. Chronic mucosal thickening in the maxillary sinuses. No acute sinusitis.
--- NOTE | 2019-10-07 21:03 | RADIOLOGY REPORT (SQ) ---
EXAM DESCRIPTION: Three views of the right hand CLINICAL HISTORY: 79 years Male, fall COMPARISON: None. FINDINGS: Bone mineralization is diminished. There is degenerative change at the radioulnar joint with ossification of the TFCC. 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 There is mild diffuse narrowing of the joint space of the DIP and PIP joints. Degenerative changes also present at the first CMC joint. No erosions or periostitis. No acute fracture is noted. IMPRESSION: 1. Osteopenia. 2. Evidence of old trauma. 3. Degenerative arthritis. 4. No acute fracture.
--- NOTE | 2019-10-07 21:05 | RADIOLOGY REPORT (SQ) ---
EXAM DESCRIPTION: XR KNEE 4 OR MORE VIEWS COMPLETED DATE/TME: 10/07/2019 19:19 CLINICAL HISTORY: 79 years Male fall COMPARISON: None. TECHNIQUE: Right knee four views FINDINGS: No acute fractures or dislocations are identified. No osseous destructive lesions. No joint effusion is noted. There is chondrocalcinosis. Vascular calcification. IMPRESSION: No acute fracture is identified.
--- NOTE | 2019-10-07 21:07 | RADIOLOGY REPORT (SQ) ---
EXAM DESCRIPTION: Two views of the thoracic spine CLINICAL HISTORY: 79 years Male, fall COMPARISON: None. FINDINGS: There is postoperative change of sternotomy. Vascular calcifications are seen in the thoracic aorta. On the frontal view there is subtle curvature convex left. Vertebral bodies are difficult to visualize because of the sternal wires. On the lateral view there is minimal disc height narrowing in the mid thoracic spine with minimal loss of height of approximately the T6 and T7 vertebral body. Age unknown. IMPRESSION: Loss of height at approximately T6 and T7. This is consistent with subtle fracture, age unknown.
[2019-10-07] MEDS ORDERED: LIDOCAINE 1% INJ-PF (10 MG/ML) 30 ML SDV INJ ONE (22:13)
--- NOTE | 2019-10-07 22:26 | ER Document Report ---
ED Fall - General Chief Complaint: Facial Injury Stated Complaint: FALL, FACIAL INJURY, HAND INJURY Time Seen by Provider: 10/07/19 19:11 Primary Care Provider: SHADIA AZAR PA-C [Primary Care Provider] - Follow up in 3-5 days Mode of Arrival: Ambulatory Information source: Patient Notes: Patient is a 79-year-old male that comes emergency department for chief complai nt of tripping over cement in a parking lot. He states he fell hitting his right knee first, then fell forward hitting his left hand and his face on the left side. He does also report some pain in his upper back. Patient denies being knocked out, vomiting, family denies confusion. Patient is on aspirin but no blood thinners otherwise. Patient does have a laceration to his left hand which is heavily bandaged at this time. Patient up-to-date on tetanus reportedly within 5 years. Patient was found to be hypertensive but had not taken his blood pressure medication and was given this in triage. TRAVEL OUTSIDE OF THE [place] IN LAST 30 DAYS: No - Related data Allergies/Adverse Reactions: No Known Allergies Allergy (Verified 07/11/19 16:01) Home Medications: lopressor, omeprazole, Past Medical History - General Information source: Patient, Relative - Social History Smoking Status: Former Smoker Frequency of alcohol use: None Drug Abuse: None Lives with: Family Family History: COPD Patient has suicidal ideation: No Patient has homicidal ideation: No - Past Medical History Cardiac Medical History: Reports: Hx Coronary Artery Disease - HIGH CHOLESTEROL, Hx Hypercholesterolemia - controlled by meds, Hx Hypertension Denies: Hx Heart Attack Pulmonary Medical History: Reports: Hx Pneumonia Denies: Hx Asthma, Hx Bronchitis, Hx COPD Neurological Medical History: Denies: Hx Cerebrovascular Accident, Hx Seizures Endocrine Medical History: Reports: Hx Hypothyroidism Renal/ Medical History: Reports: Hx Benign Prostatic Hyperplasia. Denies: Hx Peritoneal Dialysis GI Medical History: Reports: Hx Gastroesophageal Reflux Disease, Hx Hiatal Hernia - 30 years ago Musculoskeletal Medical History: Reports Hx Arthritis - shoulders,knees,ribs Past Surgical History: Reports: Hx Adenoidectomy, Hx Coronary Artery Bypass [place] t - 10 YRS AGO, Hx Open Heart Surgery - 2000, Hx Tonsillectomy. Denies: Hx Pacemaker - Immunizations Immunizations up to date: Yes Hx Diphtheria, Pertussis, Tetanus Vaccination: Yes Hx Pneumococcal Vaccination: 07/16/16 Review of Systems - Review of Systems Constitutional: No symptoms reported EENT: No symptoms reported Cardiovascular: No symptoms reported Respiratory: No symptoms reported Gastrointestinal: No symptoms reported Genitourinary: No symptoms reported Male Genitourinary: No symptoms reported Musculoskeletal: See HPI Skin: See HPI Hematologic/Lymphatic: No symptoms reported Neurological/Psychological: No symptoms reported Physical Exam - Vital signs Vitals: Temp Pulse Resp BP Pulse Ox 97.7 F 61 16 232/92 H 97 10/07/19 18:52 10/07/19 18:52 10/07/19 18:52 10/07/19 18:52 10/07/19 18:52 - Notes Notes: GENERAL: Alert, interacts well. No acute distress. HEAD: Normocephalic, there is a faint abrasion over the top of the left nose at the bridge and along the left zygomatic area of the face. No other signs of trauma over the head. EYES: Pupils equal, round, and reactive to light. Extraocular movements intact. ENT: Oral mucosa moist, tongue midline. Oropharynx unremarkable. Airway patent. Nares patent, no epistaxis, no nasal septal hematoma, TM's intact. NECK: Full range of motion. Supple. Trachea midline. LUNGS: Clear to auscultation bilaterally, no wheezes, rales, or rhonchi. No respiratory distress. No signs of trauma, no tenderness with palpation HEART: Regular rate and rhythm. No murmur ABDOMEN: Soft, non-tender. Non-distended. No signs of trauma GENITOURINARY: Deferred EXTREMITIES: Right knee with soft tissue swelling anteriorly, range of motion intact, normal ankle, hip exam, normal distal neurovascular exam, normal lower extremity otherwise. Left hand with a 2.5 cm semi-linear laceration over the palmar aspect over the fourth and fifth MCPs, partial-thickness. Normal strength in flexion and extension against resistance of all fingers, normal capillary refill and sensation, normal hand, wrist, upper extremities otherwise. BACK: no cervical, thoracic, lumbar midline tenderness. No saddle anesthesia, normal distal neurovascular exam. Moves all extremities in full range of motion. NEUROLOGICAL: Alert and oriented x3. Normal speech. Cranial nerves II through XII grossly intact. PSYCH: Normal affect, normal mood. SKIN: Warm, dry, normal turgor. No rashes or lesions noted. Course - Re-evaluation Re-evalutation: Patient has had imaging of the face, hand, and knee along with an x-ray of the thoracic back. This was very nonspecific given patient's advanced age, shows possible compression fracture versus degenerative changes. I discussed with patient and family. Because of his head injury I recommended CAT scan of the head, because of his back pain and fall along with indeterminate x-ray recommended CT of the neck and thoracic spine. They were very agreeable with this, this was performed and fortunately showed no acute findings. X-ray showed no acute findings. Left palm was repaired without difficulty. Patient has no neurological deficits. His blood pressure is very elevated but is downtrending and patient has been noncompliant with his blood pressure medication. He does have this at home and states he will be taking it at home, he states he will follow-up with his primary care within a week. Discussed wound care, head injury precautions, follow-up, return precautions. They state understanding and agreement. He is going home with his family, stable at time of discharge. - Vital Signs Vital signs: Temp Pulse Resp BP Pulse Ox 98.0 F 64 16 196/90 H 97 10/08/19 00:34 10/08/19 00:34 10/08/19 00:34 10/08/19 00:34 10/08/19 00:34 Procedures - Laceration/Wound Repair Left palm Wound length (cm): 2.5 Wound's Depth, Shape: Linear Laceration pre-procedure: Sterile PPE donned, Sterile drapes applied, Shur-Clens applied Anesthetic type: 1% Lidocaine w/epi Volume Anesthetic (mLs): 5 Wound explored: Clean, No foreign body removed Irrigated w/ Saline (mLs): 60 Wound Repaired With: Sutures Suture Size/Type: 4:0 Number of Sutures: 5 Layer Closure?: No Post-procedure wound care: Sterile dressing applied Post-procedure NV exam normal: Yes Complications: No Discharge - Discharge Clinical Impression: Upper back pain Fall Qualifiers: Encounter type: initial encounter Qualified Code(s): W19.XXXA - Unspecified fall, initial encounter Facial contusion Qualifiers: Encounter type: initial encounter Qualified Code(s): S00.83XA - Contusion of other part of head, initial encounter Laceration of left palm Qualifiers: Encounter type: initial encounter Qualified Code(s): S61.412A - Laceration without foreign body of left hand, initial encounter Contusion of right knee Qualifiers: Encounter type: initial encounter Qualified Code(s): S80.01XA - Contusion of right knee, initial encounter Condition: Stable Disposition: HOME, SELF-CARE Additional Instructions: The imaging does not show fracture or bleeding in the brain. Keep wound clean, clean with soap and water, dab dry, apply topical antibiotic dressing. Sutures can be removed in 7 days. Avoid soaking or scrubbing the area. Take antibiotic as prescribed to completion to prevent infection. Elevate and ice your right knee. Take jawt-dpb-qtiyary pain medication for this. When swelling and pain resolve resume normal activity. Please follow head injury precautions listed below and return for any concerning symptoms. Head Injury Precautions At this point, there is no evidence that your head injury is serious. Observation is necessary, however. Limit activity for the first 24 hours. During the first 24 hours, check to see approximately every two to three hours that the patient is easily arousable, responds normally, and can perform common tasks such as walking without difficulty. Contact your doctor or go to the hospital if any of the following things occur: Persistent vomiting, difficulty in arousing the patient, worsening or continued headache, or failure to improve as expected. Head injuries can cause symptoms that persist for a few days or even a few weeks. Prescriptions: Cephalexin Monohydrate [Keflex 500 mg Capsule] 500 mg PO TID 5 Days #15 capsule Forms: Elevated Blood Pressure Referrals: SHADIA AZAR PA-C [Primary Care Provider] - Follow up in 3-5 days
--- NOTE | 2019-10-07 23:30 | RADIOLOGY REPORT (SQ) ---
EXAM DESCRIPTION: CT HEAD WITHOUT IV CONTRAST, CT CERVICAL SPINE WITHOUT IV CONTRAST COMPLETED DATE/TME: 10/07/2019 22:31 CLINICAL HISTORY: 79 years, Male, fall, head injury, neck and upper back pain COMPARISON: None. TECHNIQUE: Images stored on PACS. All CT scanners at this facility use dose modulation, iterative reconstruction, and/or weight based dosing when appropriate to reduce radiation dose to as low as reasonably achievable (ALARA). [facility]: Dose Right [facility]: CareDose [facility]: Dose Right [facility]: Teradose 4D [facility]: Smart Technologies LIMITATIONS: None. FINDINGS: Brain: Narayanan-white differentiation is grossly normal. Ventricles and extracerebral spaces are within normal limits for age. Age-appropriate involutional change is identified with presumed old small vessel ischemic changes bilaterally. No acute large territory infarct. No evidence of acute intracranial hemorrhage. Vascular calcification is identified in both anterior and posterior circulation. The paranasal sinuses are clear. Apparent old posttraumatic change to the nasal bones with leftward deviation. Mastoid air cells are clear. Orbits and eyeballs are unremarkable. Cervical spine: No acute fractures identified of the cervical spine. Old posttraumatic changes identified, posteriorly. Age-appropriate uncovertebral and facet osteoarthritis rather prominent at C3-C4. Vascular calcification is seen. Surrounding soft tissues of the neck are otherwise unremarkable. Lung apices are grossly clear IMPRESSION: No acute intracranial process. Age-related involutional changes are identified. Presumed old small vessel ischemic changes are seen predominantly in a periventricular distribution. No acute bony injury to the cervical spine. Age-appropriate osteoarthritis. TECHNICAL DOCUMENTATION: Quality ID # 436: Final reports with documentation of one or more dose reduction techniques (e.g., Automated exposure control, adjustment of the mA and/or kV according to patient size, use of iterative reconstruction technique) copyright 2011 [employer]- All Rights Reserved
--- NOTE | 2019-10-07 23:32 | RADIOLOGY REPORT (SQ) ---
EXAM DESCRIPTION: CT THORACIC SPINE WITHOUT IV CONTRAST COMPLETED DATE/TME: 10/07/2019 22:31 CLINICAL HISTORY: 79 years, Male, fall, head injury, neck and upper back pain COMPARISON: Plain films today's date TECHNIQUE: 386 Images stored on PACS. All CT scanners at this facility use dose modulation, iterative reconstruction, and/or weight based dosing when appropriate to reduce radiation dose to as low as reasonably achievable (ALARA). [facility]: Dose Right [facility]: CareDose [facility]: Dose Right [facility]: Teradose 4D [facility]: [employer] LIMITATIONS: None. FINDINGS: Evaluation of spinal canal contents limited due to CT technique. Minor endplate degenerative changes throughout the thoracic spine resulting in minimal loss of height in the mid thoracic spine. There is also slight accentuation of the normal thoracic [employer]. However there is no CT evidence for acute compression fracture or subluxation. Limited evaluation of extraspinal anatomic structures shows atheromatous change of the abdominal aorta. No CT evidence for central canal stenosis at any level. IMPRESSION: Minor endplate degenerative changes of the thoracic spine with accentuation of the normal thoracic kyphosis. No CT evidence for acute osseous abnormality TECHNICAL DOCUMENTATION: Quality ID # 436: Final reports with documentation of one or more dose reduction techniques (e.g., Automated exposure control, adjustment of the mA and/or kV according to patient size, use of iterative reconstruction technique) copyright 2011 [employer]- All Rights Reserved
[2019-10-08 00:36] VITALS: BP 196/90
== END 2019-10-08 00:34 | disposition home or self-care (01) ==
LOC: ER 18:35
DX: S61.412A Laceration without foreign body of left hand, initial encounter (principal); S80.01XA Contusion of right knee, initial encounter; S00.83XA Contusion of other part of head, initial encounter; S00.31XA Abrasion of nose, initial encounter; S00.81XA Abrasion of other part of head, initial encounter; M54.9 Dorsalgia, unspecified; W01.0XXA Fall on same level from slipping, tripping and stumbling without subsequent striking against object, initial encounter; Y92.481 Parking lot as the place of occurrence of the external cause; I25.10 Atherosclerotic heart disease of native coronary artery without angina pectoris; K21.9 Gastro-esophageal reflux disease without esophagitis; I10 Essential (primary) hypertension; Z91.14 Patient's other noncompliance with medication regimen; Z79.899 Other long term (current) drug therapy; Z79.82 Long term (current) use of aspirin; Z87.891 Personal history of nicotine dependence
CPT/HCPCS: 99284; 73130; 73564; 72070; 70450; 70486; 72125; 72128; 12001; A9270; J3490

== ENCOUNTER 2019-10-16 18:09 | Emergency (ER) | payer MEDICARE ==
--- NOTE | 2019-10-16 18:38 | ER Document Report ---
HPI - HPI Patient complains to provider of: right knee pain Time Seen by Provider: 10/16/19 18:27 Onset: Just prior to arrival Pain Level: Denies Context: 79-year-old male presents emergency department complaints of right knee pain. Patient reports last week he fell landing on his knee face. He was evaluated in this emergency department with multiple x-rays and scans. He reports his knee was not broken. He reports he has been walking around without problems and he followed up with his general practitioner. Is waiting for an Ortho referral. He reports he walked into the house today and was standing there when all of a sudden his knee started swelling and he had trouble flexing his knee.. He denied any further trauma. Reports he is walking fine. Denies twisting his knee. No other complaints such as fever vomiting diarrhea. Associated Symptoms: None Exacerbated by: Movement, Walking Relieved by: Denies Similar symptoms previously: Yes Recently seen / treated by doctor: Yes - REPRODUCTIVE Reproductive: DENIES: : Past Medical History - General Information source: Patient - Social History Smoking Status: Former Smoker Cigarette use (# per day): No Frequency of alcohol use: None Drug Abuse: None Lives with: Family Family History: COPD Patient has suicidal ideation: No Patient has homicidal ideation: No - Past Medical History Cardiac Medical History: Reports: Hx Coronary Artery Disease - HIGH CHOLESTEROL, Hx Hypercholesterolemia - controlled by meds, Hx Hypertension Denies: Hx Heart Attack Pulmonary Medical History: Reports: Hx Pneumonia Denies: Hx Asthma, Hx Bronchitis, Hx COPD Neurological Medical History: Denies: Hx Cerebrovascular Accident, Hx Seizures Endocrine Medical History: Reports: Hx Hypothyroidism Renal/ Medical History: Reports: Hx Benign Prostatic Hyperplasia. Denies: Hx Peritoneal Dialysis GI Medical History: Reports: Hx Gastroesophageal Reflux Disease, Hx Hiatal Hernia - 30 years ago Musculoskeletal Medical History: Reports Hx Arthritis - shoulders,knees,ribs Past Surgical History: Reports: Hx Adenoidectomy, Hx Coronary Artery Bypass Graft - 10 YRS AGO, Hx Open Heart Surgery - 2000, Hx Tonsillectomy. Denies: Hx Pacemaker - Immunizations Immunizations up to date: Yes Hx Diphtheria, Pertussis, Tetanus Vaccination: Yes Hx Pneumococcal Vaccination: 07/16/16 Vertical Provider Document - CONSTITUTIONAL Agree With Documented VS: Yes Exam Limitations: No Limitations General Appearance: WD/WN, No Apparent Distress - INFECTION CONTROL TRAVEL OUTSIDE OF THE [place] IN LAST 30 DAYS: No - HEENT HEENT: Atraumatic, Normocephalic - NECK Neck: Supple - RESPIRATORY Respiratory: No Respiratory Distress - MUSCULOSKELETAL/EXTREMETIES Musculoskeletal/Extremeties: MAEW, Tender - Right knee anterior swelling with faint yellow ecchymosis. No erythema no warmth. Patient able to flex and extend knee. - NEURO Level of Consciousness: Awake, Alert, Appropriate Motor/Sensory: No Motor Deficit - DERM Integumentary: Warm, Dry Adult Front & Back Diagram: 1 - Swelling 2 - Faint yellow ecchymosis Course - Re-evaluation Re-evalutation: 10/16/19 19:35 79-year-old male presents emergency department with right knee swelling. Reports he injured it last week when he fell but there was no fracture. Reports that he was just walking in the house today when also on palpate start swelling. Denies injury. Patient able to flex and extend knee without problems. Swelling has gone down since he arrived. No erythema no warmth to the knee. He was instructed on negative x-ray swelling Kieran wrap. He was also instructed follow-up with his orthopedics this week. Patient was instructed on signs and s ymptoms of infection and instructed to return for any signs of infection or any concerns. He verbalized understanding. Patient reports he has a walker at home and does not need crutches. 10/16/19 21:05 Knee X-Ray 10/16/19 18:34 IMPRESSION: DEGENERATIVE CHANGES. PROMINENT PREPATELLAR SOFT TISSUE SWELLING. - Vital Signs Vital signs: Temp Pulse Resp BP Pulse Ox 98.1 F 56 L 16 160/78 H 95 10/16/19 18:18 10/16/19 18:18 10/16/19 18:18 10/16/19 18:18 10/16/19 18:18 - Diagnostic Test Radiology reviewed: Image reviewed, Reports reviewed Procedures - Immobilization Right Knee Pre-Proc Neuro Vasc Exam: Normal Immobilizer type: Kieran wrap Performed by: PCT Post-Proc Neuro Vasc Exam: Unchanged from pre-exam Discharge - Discharge Clinical Impression: Pain and swelling of right knee, Prominent pre-patellar swelling Condition: Stable Disposition: HOME, SELF-CARE Instructions: Kieran Wrap ([facility]), Ice & Elevation ([facility]), Suspected Internal Knee Injury ([facility]) Additional Instructions: *You have been evaluated for right knee pain and swelling The x-ray showed prominent prepatellar swelling but no fracture. *Maintain the Kieran wrap *Monitor your knee for signs of infection such as redness warmth *Rest/Ice/Elevate your knee *Follow up with orthopedics this week *Take Tylenol or Motrin as indicated for pain *Return to ED for worsening condition, changes, needs, signs of infection Referrals: SHADIA AZAR PA-C [Primary Care Provider] - Follow up in 3-5 days [facility] [Provider Group] - Follow up as needed (call for appointment)
--- NOTE | 2019-10-16 18:58 | RADIOLOGY REPORT (SQ) ---
EXAM DESCRIPTION: KNEE RIGHT 4 VIEWS COMPLETED DATE/TIME: 10/16/2019 6:45 pm REASON FOR STUDY: swelling pain COMPARISON: None. NUMBER OF VIEWS: Four views. TECHNIQUE: AP, lateral, and both oblique radiographic images acquired of the right knee. LIMITATIONS: None. FINDINGS: MINERALIZATION: Normal. BONES: No acute fracture or dislocation. No worrisome bone lesions. Small osteophytes. JOINT: No effusion. Faint chondrocalcinosis. OTHER: Prominent prepatellar soft tissue swelling. IMPRESSION: DEGENERATIVE CHANGES. PROMINENT PREPATELLAR SOFT TISSUE SWELLING. TECHNICAL DOCUMENTATION: JOB ID: [id number] [email or web address]- All Rights Reserved Reading location - IP/workstation name: [email or web address]
[2019-10-16 20:12] VITALS: BP 158/74
== END 2019-10-16 20:13 | disposition home or self-care (01) ==
LOC: ER 18:09
DX: M25.561 Pain in right knee (principal); M79.89 Other specified soft tissue disorders; W19.XXXD Unspecified fall, subsequent encounter; Z87.891 Personal history of nicotine dependence; I25.10 Atherosclerotic heart disease of native coronary artery without angina pectoris
CPT/HCPCS: 99283

== ENCOUNTER 2019-11-20 16:30 | Emergency (ER) | payer MEDICARE ==
--- NOTE | 2019-11-20 16:40 | ER Document Report ---
ED Medical Screen (RME) - General Chief Complaint: Blood Pressure Problem Stated Complaint: HIGH BLOOD PRESSURE Time Seen by Provider: 11/20/19 16:33 Primary Care Provider: SHADIA AZAR PA-C [Primary Care Provider] - Follow up as needed Mode of Arrival: Ambulatory Information source: Patient Notes: 79-year-old male sent to ED for elevated blood pressure. He states he took all of his medications as they are prescribed and it is still elevated. He states his primary doctor did recently increase his blood pressure medications and they are still not controlling his blood pressure. He states his doctor is Dr. Brigido Aguero. He states he has a little discomfort in his chest but he does not really know if you would call a chest pain. He is alert oriented respirations regular nonlabored speaking in full sentences. He states he was diagnosed with prostate cancer 10 years ago and they did not do any treatment. He states he has had a quadruple bypass and back surgery, tonsillectomy. He states his cholesterol is controlled with his medications but his blood pressure is not. He states he does not smoke or use any illicit drugs but he does occasionally drink wine. I have greeted and performed a rapid initial assessment of this patient. A comprehensive ED assessment and evaluation of the patient, analysis of test results and completion of medical decision making process will be conducted by an additional ED providers. TRAVEL OUTSIDE OF THE [place] IN LAST 30 DAYS: No - Related Data Allergies/Adverse Reactions: No Known Allergies Allergy (Verified 11/20/19 16:36) Past Medical History - Past Medical History Cardiac Medical History: Reports: Hx Coronary Artery Disease - HIGH CHOLESTEROL, Hx Hypercholesterolemia - controlled by meds, Hx Hypertension Denies: Hx Heart Attack Pulmonary Medical History: Reports: Hx Pneumonia Denies: Hx Asthma, Hx Bronchitis, Hx COPD Neurological Medical History: Denies: Hx Cerebrovascular Accident, Hx Seizures Endocrine Medical History: Reports: Hx Hypothyroidism Renal/ Medical History: Reports: Hx Benign Prostatic Hyperplasia. Denies: Hx Peritoneal Dialysis GI Medical History: Reports: Hx Gastroesophageal Reflux Disease, Hx Hiatal Hernia - 30 years ago Musculoskeltal Medical History: Reports Hx Arthritis - shoulders,knees,ribs Past Surgical History: Reports: Hx Adenoidectomy, Hx Coronary Artery Bypass Graft - 10 YRS AGO, Hx Open Heart Surgery - 2000, Hx Tonsillectomy. Denies: Hx Pacemaker - Immunizations Immunizations up to date: Yes Hx Diphtheria, Pertussis, Tetanus Vaccination: Yes Physical Exam - Vital signs Vitals: Temp Pulse Resp BP Pulse Ox 98.2 F 59 L 20 187/91 H 96 11/20/19 16:34 11/20/19 16:34 11/20/19 16:34 11/20/19 16:34 11/20/19 16:34 Course - Vital Signs Vital signs: Temp Pulse Resp BP Pulse Ox 98.2 F 59 L 13 180/84 H 98 11/20/19 16:34 11/20/19 16:34 11/20/19 20:06 11/20/19 20:06 11/20/19 20:06 - Laboratory Result Diagrams: 11/20/19 17:00 11/20/19 17:00 Laboratory results interpreted by me: 11/20/19 11/20/19 17:00 17:00 RBC 4.34 L RDW 14.1 H Plt Count 113 L Sodium 133.8 L Chloride 96 L Doctor's Discharge - Discharge Clinical Impression: Essential hypertension Condition: Stable Disposition: HOME, SELF-CARE Additional Instructions: Continue current medications and add the new medication I have prescribed. Return here as needed for new or worsening symptoms. Follow-up with your primary care or hydramatic specialist within the next 2 to 3 days. Prescriptions: Hydrochlorothiazide [Hydrodiuril 25 mg Tablet] 12.5 mg PO QAM 30 Days #30 tablet Referrals: SHADIA AZAR PA-C [Primary Care Provider] - Follow up as needed
[2019-11-20] MEDS ORDERED: ASPIRIN 81 MG TABLET, CHEWABLE PO ONE (16:42)
--- NOTE | 2019-11-20 17:52 | RADIOLOGY REPORT (SQ) ---
EXAM DESCRIPTION: CHEST 2 VIEWS COMPLETED DATE/TIME: 11/20/2019 5:39 pm REASON FOR STUDY: Chest discomfort COMPARISON: 01/12/2019 TECHNIQUE: Frontal and lateral radiographic views of the chest acquired. NUMBER OF VIEWS: Two view. LIMITATIONS: None. FINDINGS: LUNGS AND PLEURA: No pneumothorax. No consolidation or pleural effusion. MEDIASTINUM AND HILAR STRUCTURES: Stable. HEART AND VASCULAR STRUCTURES: Stable. BONES: No acute findings. HARDWARE: CABG. OTHER: No other significant finding. IMPRESSION: NO ACUTE FINDINGS. TECHNICAL DOCUMENTATION: JOB ID: [id number] [place]-72 2010 [employer]- All Rights Reserved Reading location - IP/workstation name: [email or web address]
[2019-11-20 17:59] LABS: APPEARANCE,URINE CLEAR; BILIRUBIN,URINE NEGATIVE (NEGATIVE); COLOR,URINE STRAW; GLUCOSE, URINE NEGATIVE (NEGATIVE); KETONES,URINE NEGATIVE (NEGATIVE); PROTEIN,URINE NEGATIVE (NEGATIVE); URINE SPECIFIC GRAVITY 1.006; UROBILINOGEN,URINE NEGATIVE mg/dL (<2.0)
[2019-11-20 18:02] LABS: ABSOLUTE BASOPHILS # (AUTO) 0.1 10^3/uL (0.0-0.2); ABSOLUTE EOSINOPHILS # (AUTO) 0.3 10^3/uL (0.0-0.6); ABSOLUTE LYMPHOCYTES (AUTO) 1.5 10^3/uL (0.5-4.7); ABSOLUTE MONOCYTES (AUTO) 0.6 10^3/uL (0.1-1.4); ABSOLUTE NEUT (AUTO) 4.6 10^3/uL (1.7-8.2); BASOPHILS % (AUTO) 0.8 % (0-2); EOSINOPHILS % (AUTO) 4.3 % (0-6); HEMATOCRIT 41.5 % (37.9-51.0); HEMOGLOBIN 14.1 g/dL (13.5-17.0); LYMPHOCYTES % (AUTO) 21.5 % (13-45); MEAN CORPUSCULAR HEMOGLOBIN 32.4 pg (27.0-33.4); MEAN CORPUSCULAR HGB CONC 33.9 g/dL (32.0-36.0); MEAN CORPUSCULAR VOLUME 96 fl (80-97); MONOCYTES % (AUTO) 8.1 % (3-13); RED BLOOD COUNT 4.34 10^6/uL (4.35-5.55); RED CELL DISTRIBUTION WIDTH 14.1 % (11.5-14.0); SEGMENTED NEUTROPHILS % (AUTO) 65.3 % (42-78); TOTAL CELLS COUNTED % (AUTO) 100 %
[2019-11-20 18:14] LABS: ALBUMIN 4.4 g/dL (3.5-5.0); ALKALINE PHOSPHATASE 56 U/L (38-126); ANION GAP 10 (5-19); ASPARTATE AMINO TRANSFERASE 27 U/L (17-59); BILIRUBIN,DIRECT 0.3 mg/dL (0.0-0.4); BILIRUBIN,TOTAL 0.5 mg/dL (0.2-1.3); BLOOD UREA NITROGEN 17 mg/dL (7-20); CALCIUM 8.8 mg/dL (8.4-10.2); CARBON DIOXIDE 28 mmol/L (22-30); CHLORIDE 96 mmol/L (98-107); GLUCOSE 92 mg/dL (75-110); POTASSIUM 4.6 mmol/L (3.6-5.0); TOTAL PROTEIN 7.4 g/dL (6.3-8.2)
[2019-11-20 18:20] LABS: PLATELET COUNT 113 10^3/uL (150-450)
--- NOTE | 2019-11-20 19:07 | ER Document Report ---
ED General - General Chief Complaint: Blood Pressure Problem Stated Complaint: HIGH BLOOD PRESSURE Time Seen by Provider: 11/20/19 16:33 Primary Care Provider: SHADIA AZAR PA-C [Primary Care Provider] - Follow up as needed Mode of Arrival: Ambulatory TRAVEL OUTSIDE OF THE [place] IN LAST 30 DAYS: No - HPI Notes: 79-year-old man with longstanding history of hypertension on multiple medications and past CABG presents today with concern about his blood pressure. He says that he "just feels different" than his usual state and says this is typically been the way he feels when his blood pressure is up. 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 During the day this tends to come down in the 170s. He saw his associate field service engineer last week and had his Benzapril increased from 10 mg twice daily to 20 mg twice daily. Additionally he is taking amlodipine 5 mg daily and metoprolol extended release 25 mg at night. He is not currently on a diuretic. - Related Data Allergies/Adverse Reactions: No Known Allergies Allergy (Verified 11/20/19 16:36) Home Medications: see list Past Medical History - General Information source: Patient, Relative - Has that he have a bowel movement yet to telemetry [place] - Social History Smoking Status: Never Smoker Chew tobacco use (# tins/day): No Frequency of alcohol use: Occasional Drug Abuse: None Family History: COPD Patient has suicidal ideation: No Patient has homicidal ideation: No - Past Medical History Cardiac Medical History: Reports: Hx Coronary Artery Disease - HIGH CHOLESTEROL, Hx Hypercholesterolemia - controlled by meds, Hx Hypertension Denies: Hx Heart Attack Pulmonary Medical History: Reports: Hx Pneumonia Denies: Hx Asthma, Hx Bronchitis, Hx COPD Neurological Medical History: Denies: Hx Cerebrovascular Accident, Hx Seizures Endocrine Medical History: Reports: Hx Hypothyroidism Renal/ Medical History: Reports: Hx Benign Prostatic Hyperplasia. Denies: Hx Peritoneal Dialysis GI Medical History: Reports: Hx Gastroesophageal Reflux Disease, Hx Hiatal Hernia - 30 years ago Musculoskeletal Medical History: Reports Hx Arthritis - shoulders,knees,ribs Past Surgical History: Reports: Hx Adenoidectomy, Hx Coronary Artery Bypass Graft - 10 YRS AGO, Hx Open Heart Surgery - 2000, Hx Orthopedic Surgery - L3-4-5 spinal stenosis; lt shoulder, Hx Tonsillectomy. Denies: Hx Pacemaker - Immunizations Immunizations up to date: Yes Hx Diphtheria, Pertussis, Tetanus Vaccination: Yes Hx Pneumococcal Vaccination: 07/16/16 Review of Systems - Review of Systems Notes: Constitutional: Negative for fever. HENT: Negative for sore throat. Eyes: Negative for visual changes. Cardiovascular: Negative for chest pain. Respiratory: Negative for shortness of breath. Gastrointestinal: Negative for abdominal pain, vomiting or diarrhea. Genitourinary: Negative for dysuria. Musculoskeletal: Negative for back pain. Skin: Negative for rash. Neurological: Negative for headaches, weakness or numbness. 10 point ROS negative except as marked above and in HPI. Physical Exam - Vital signs Vitals: Temp Pulse Resp BP Pulse Ox 98.2 F 59 L 20 187/91 H 96 11/20/19 16:34 11/20/19 16:34 11/20/19 16:34 11/20/19 16:34 11/20/19 16:34 - Notes Notes: GENERAL: Elderly man appearing in no acute distress. Vital signs: Pulse 56 with normal sinus rhythm on monitor. Blood pressure consistently around 170/90. Respirations 18. SKIN: Good turgor no rashes. HEAD: Normocephalic atraumatic. EYES: PERRLA. EOMI. Conjunctivae and sclerae clear. EARS: CANALS AND TMS CLEAR. NOSE: CLEAR. MOUTH: Moist mucosa. Good dentition. No stridor or edema. No drooling. NECK: Supple. No masses or thyromegaly. No adenopathy. Carotids 2+ without bruits. No JVD. BACK: Symmetrical without tenderness. CHEST: Respirations unlabored. Breath sounds clear and symmetrical. HEART: Regular rhythm. No murmur gallop or rub. ABDOMEN: Soft nontender without masses, organomegaly or rebound. Bowel sounds normally active. No bruits. GENITALIA: Deferred. EXTREMITIES: No edema. No calf tenderness. Cap refill less than 1.5 seconds. Dorsalis pedis and posterior tibial pulses 3+ and symmetrical. NEUROLOGICAL: GCS 15. Alert and oriented x3. Normal gait. Fluent speech. Batting Machine Operator Insulation nial nerves II through XII intact. Sensorimotor and cerebellar normal. Normal tone. PSYCHIATRIC: Appropriate affect. Course - Re-evaluation Re-evalutation: 11/20/19 19:06 Blood pressures persistently elevated here. Comprehensive metabolic profile CBC, head CT and chest x-ray are unremarkable. EKG is unchanged from a baseline tracing from about 2 years ago. I talked with the patient and his son at some length about blood pressure. I think at this point we do not need to abruptly lower his blood pressure and explained to him the potential risks of such an intervention. Encouraged him to stay on his present medicines I am going to add hydrochlorothiazide 12.5 mg daily and asked him to follow-up with his primary care physician or associate field service engineer within the next 48 hours. He also understands that he may return here imme diately for new or worsening symptoms. 11/20/19 19:09 - Vital Signs Vital signs: Temp Pulse Resp BP Pulse Ox 98.2 F 59 L 14 177/88 H 98 11/20/19 16:34 11/20/19 16:34 11/20/19 18:38 11/20/19 18:38 11/20/19 18:38 - Laboratory Result Diagrams: 11/20/19 17:00 11/20/19 17:00 Laboratory results interpreted by me: 11/20/19 11/20/19 17:00 17:00 RBC 4.34 L RDW 14.1 H Plt Count 113 L Sodium 133.8 L Chloride 96 L - Diagnostic Test Radiology reviewed: Reports reviewed - Normal head CT per radiologist. Chest x- ray shows prior CABG and no other acute findings per radiologist. Discharge - Discharge Clinical Impression: Essential hypertension Condition: Stable Disposition: HOME, SELF-CARE Additional Instructions: Continue current medications and add the new medication I have prescribed. Return here as needed for new or worsening symptoms. Follow-up with your primary care or mechanical integrity specialist within the next 2 to 3 days. Prescriptions: Hydrochlorothiazide [Hydrodiuril 25 mg Tablet] 12.5 mg PO QAM 30 Days #30 tablet Referrals: SHADIA AZAR PA-C [Primary Care Provider] - Follow up as needed
--- NOTE | 2019-11-20 19:55 | EKG REPORT ---
SEVERITY:- ABNORMAL ECG - SINUS RHYTHM FIRST DEGREE AV BLOCK PROBABLE INFERIOR INFARCT, OLD CONSIDER POSTERIOR WALL INVOLVEMENT : Confirmed by: Delvin Barrera MD 20-Nov-2019 19:55:09
[2019-11-20 20:15] VITALS: BP 180/84
== END 2019-11-20 20:15 | disposition home or self-care (01) ==
LOC: ER 16:30
DX: I10 Essential (primary) hypertension (principal); I25.10 Atherosclerotic heart disease of native coronary artery without angina pectoris; Z95.1 Presence of aortocoronary bypass graft; Z79.899 Other long term (current) drug therapy
CPT/HCPCS: 93005; 99284; 36415; 85025; 80053; 81001; 71046; 93010; A9270

== ENCOUNTER 2019-12-09 11:51 | Inpatient (IN) | payer MEDICARE ==
--- NOTE | 2019-12-09 12:12 | ER Document Report ---
ED Medical Screen (RME) - General Chief Complaint: Abnormal Lab Results Stated Complaint: ABNORMAL LABS Time Seen by Provider: 12/09/19 11:58 Primary Care Provider: SHADIA AZAR PA-C [Primary Care Provider] - Follow up as needed TRAVEL OUTSIDE OF THE [place] IN LAST 30 DAYS: No - HPI Notes: 12/09/19 12:09 [id number] male with a history of hypertension, prostate Ca and CABG presents to the emergency room for abnormal labs that he received from his primary care provider, states his sodium was 120 and creatinine was 1.7. Patient states he has had history of kidney issues in the past. Patient reports he has increased fatigue. Denies any chest pain shortness of breath nausea vomiting or diarrhea, no fever chills, no coughing. Patient states he was placed on a diuretic due to his blood pressure being elevated, he has been following with his doping supervisor. I have greeted and performed a rapid initial assessment of this patient. A comprehensive ED assessment and evaluation of the patient, analysis of test results and completion of the medical decision making process will be conducted by additional ED providers. PHYSICAL EXAMINATION: GENERAL: Well-appearing, well-nourished and in no acute distress. NECK: Normal range of motion CV: s1, s2 regular NEUROLOGICAL: Normal speech, normal gait. SKIN: Warm, Dry, normal turgor, no rashes or lesions noted. - Related Data Allergies/Adverse Reactions: No Known Allergies Allergy (Verified 11/20/19 16:36) Past Medical History - Past Medical History Cardiac Medical History: Reports: Hx Coronary Artery Disease - HIGH CHOLESTEROL, Hx Hypercholesterolemia - controlled by meds, Hx Hypertension Denies: Hx Heart Attack Pulmonary Medical History: Reports: Hx Pneumonia Denies: Hx Asthma, Hx Bronchitis, Hx COPD Neurological Medical History: Denies: Hx Cerebrovascular Accident, Hx Seizures Endocrine Medical History: Reports: Hx Hypothyroidism Renal/ Medical History: Reports: Hx Benign Prostatic Hyperplasia. Denies: Hx Peritoneal Dialysis GI Medical History: Reports: Hx Gastroesophageal Reflux Disease, Hx Hiatal Hernia - 30 years ago Musculoskeltal Medical History: Reports Hx Arthritis - shoulders,knees,ribs Past Surgical History: Reports: Hx Adenoidectomy, Hx Coronary Artery Bypass Graft - 10 YRS AGO, Hx Open Heart Surgery - 2000, Hx Orthopedic Surgery - L3-4-5 spinal stenosis; lt shoulder, Hx Tonsillectomy. Denies: Hx Pacemaker - Immunizations Immunizations up to date: Yes Hx Diphtheria, Pertussis, Tetanus Vaccination: Yes Physical Exam - Vital signs Vitals: Temp Pulse Resp BP Pulse Ox 98.4 F 52 L 18 147/71 H 95 12/09/19 11:56 12/09/19 11:56 12/09/19 11:56 12/09/19 11:56 12/09/19 11:56 Course - Vital Signs Vital signs: Temp Pulse Resp BP Pulse Ox 98.4 F 52 L 18 147/71 H 95 12/09/19 11:56 12/09/19 11:56 12/09/19 11:56 12/09/19 11:56 12/09/19 11:56 Doctor's Discharge - Discharge Referrals: SHADIA AZAR PA-C [Primary Care Provider] - Follow up as needed
--- NOTE | 2019-12-09 12:39 | RADIOLOGY REPORT (SQ) ---
EXAM DESCRIPTION: CHEST SINGLE VIEW COMPLETED DATE/TIME: 12/09/2019 12:28 pm REASON FOR STUDY: fatigue COMPARISON: 11/20/2019 EXAM PARAMETERS: NUMBER OF VIEWS: One view. TECHNIQUE: Single frontal radiographic view of the chest acquired. RADIATION DOSE: NA LIMITATIONS: None. FINDINGS: LUNGS AND PLEURA: No opacities, masses or pneumothorax. No pleural effusion. MEDIASTINUM AND HILAR STRUCTURES: No masses. Contour normal. HEART AND VASCULAR STRUCTURES: Heart normal in size. Normal vasculature. BONES: No acute findings. HARDWARE: Sternotomy wires are in place. OTHER: No other significant finding. IMPRESSION: NO ACUTE RADIOGRAPHIC FINDING IN THE CHEST. TECHNICAL DOCUMENTATION: JOB ID: [id number] 2010 [employer]- All Rights Reserved Reading location - IP/workstation name: [email or web address]
[2019-12-09] MEDS ORDERED: NORMAL SALINE 1000 ML 1,000 ML IV ONE (12:54)
[2019-12-09 13:17] LABS: CALCIUM 8.6 mg/dL (8.4-10.2)
[2019-12-09 13:18] LABS: ALKALINE PHOSPHATASE 71 U/L (38-126); ANION GAP 10 (5-19); ASPARTATE AMINO TRANSFERASE 40 U/L (17-59); BILIRUBIN,DIRECT 0.3 mg/dL (0.0-0.4); BILIRUBIN,TOTAL 0.3 mg/dL (0.2-1.3); BLOOD UREA NITROGEN 23 mg/dL (7-20); C-REACTIVE PROTEIN 14.1 mg/L (<10.0); CARBON DIOXIDE 27 mmol/L (22-30); CHLORIDE 84 mmol/L (98-107); GLUCOSE 92 mg/dL (75-110); TOTAL PROTEIN 7.1 g/dL (6.3-8.2)
[2019-12-09 13:31] LABS: ABSOLUTE EOSINOPHILS # (AUTO) 0.1 10^3/uL (0.0-0.6); ABSOLUTE LYMPHOCYTES (AUTO) 0.8 10^3/uL (0.5-4.7); ABSOLUTE MONOCYTES (AUTO) 0.6 10^3/uL (0.1-1.4); BASOPHILS % (AUTO) 0.7 % (0-2); EOSINOPHILS % (AUTO) 2.7 % (0-6); HEMATOCRIT 35.6 % (37.9-51.0); HEMOGLOBIN 12.7 g/dL (13.5-17.0); MEAN CORPUSCULAR HEMOGLOBIN 32.4 pg (27.0-33.4); MEAN CORPUSCULAR HGB CONC 35.5 g/dL (32.0-36.0); MONOCYTES % (AUTO) 10.2 % (3-13); PLATELET COUNT 190 10^3/uL (150-450); RED CELL DISTRIBUTION WIDTH 13.1 % (11.5-14.0); SEGMENTED NEUTROPHILS % (AUTO) 71.4 % (42-78); TOTAL CELLS COUNTED % (AUTO) 100 %; WHITE BLOOD COUNT 5.6 10^3/uL (4.0-10.5)
[2019-12-09 13:36] LABS: MEAN CORPUSCULAR VOLUME 91 fl (80-97)
--- NOTE | 2019-12-09 14:09 | ER Document Report ---
Entered by CAIT DIAZ SCRIBE 12/09/19 1257 Acting as scribe for:AURE MORA MD ED General - General Chief Complaint: Abnormal Lab Results Stated Complaint: ABNORMAL LABS Time Seen by Provider: 12/09/19 11:58 Primary Care Provider: SHADIA AZAR PA-C [Primary Care Provider] - Follow up as needed Mode of Arrival: Ambulatory Information source: Patient Notes: This 79 year old male patient presents to the emergency department today with complaints of abnormal lab work, specifically a low sodium. Patient was started on 12.5 mg of hydrochlorothiazide on 11/19, and 5 days later his quitline counselor told him to take a full pill instead, making his dosage 25 mg daily. Patient states that he had a burning sensation to the skin of his groins so he messaged his doctor and they did lab work which showed the low sodium. TRAVEL OUTSIDE OF THE [place] IN LAST 30 DAYS: No - Related Data Allergies/Adverse Reactions: No Known Allergies Allergy (Verified 11/20/19 16:36) Past Medical History - General Information source: Patient - Social History Smoking Status: Former Smoker - quit in 1990 Cigarette use (# per day): No Chew tobacco use (# tins/day): No Smoking Education Provided: No Frequency of alcohol use: None Drug Abuse: None Occupation: retired Lives with: Family Family History: Reviewed & Not Pertinent, COPD Patient has suicidal ideation: No Patient has homicidal ideation: No - Past Medical History Cardiac Medical History: Reports: Hx Coronary Artery Disease, Hx H ypercholesterolemia, Hx Hypertension Pulmonary Medical History: Reports: Hx Pneumonia Endocrine Medical History: Reports: Hx Hypothyroidism Renal/ Medical History: Reports: Hx Benign Prostatic Hyperplasia GI Medical History: Reports: Hx Gastroesophageal Reflux Disease, Hx Hiatal Hernia - 30 years ago Musculoskeletal Medical History: Reports Hx Arthritis - shoulders,knees,ribs Past Surgical History: Reports: Hx Adenoidectomy, Hx Coronary Artery Bypass Graft - 2000, Hx Orthopedic Surgery - L3-4-5 spinal stenosis; lt shoulder, Hx Tonsillectomy - Immunizations Immunizations up to date: Yes Hx Diphtheria, Pertussis, Tetanus Vaccination: Yes Hx Pneumococcal Vaccination: 07/16/16 Review of Systems - Review of Systems Constitutional: See HPI, Other - abnormal blood work EENT: No symptoms reported Cardiovascular: No symptoms reported Respiratory: No symptoms reported Gastrointestinal: No symptoms reported Genitourinary: denies: Dysuria Male Genitourinary: No symptoms reported Musculoskeletal: No symptoms reported Skin: See HPI, Other - burning sensation in groin Hematologic/Lymphatic: No symptoms reported Neurological/Psychological: No symptoms reported -: Yes All other systems reviewed and negative Physical Exam - Vital signs Vitals: Temp Pulse Resp BP Pulse Ox 98.4 F 52 L 18 147/71 H 95 12/09/19 11:56 12/09/19 11:56 12/09/19 11:56 12/09/19 11:56 12/09/19 11:56 - Notes Notes: Physical Exam: General: Alert, appears well. HEENT: Normocephalic. Atraumatic. PERRL. Extraocular movements intact. Oropharynx clear. Neck: Supple. Non-tender. Respiratory: No respiratory distress. Clear and equal breath sounds bilaterally. Cardiovascular: Regular rate and rhythm. Abdominal: Normal Inspection. Non-tender. No distension. Normal Bowel Sounds. Back: No gross abnormalities. Extremities: Moves all four extremities. Upper extremities: Normal inspection. Normal ROM. Lower extremities: Normal inspection. No edema. Normal ROM. Neurological: Normal cognition. AAOx4. Normal speech. Psychological: Normal affect. Normal Mood. Skin: Warm. Dry. Normal color. Course - Vital Signs Vital signs: Temp Pulse Resp BP Pulse Ox 98.4 F 52 L 12 154/75 H 99 12/09/19 11:56 12/09/19 11:56 12/09/19 14:01 12/09/19 14:01 12/09/19 14:01 - Laboratory Result Diagrams: 12/09/19 12:31 12/09/19 12:31 Laboratory results interpreted by me: 12/09/19 12/09/19 12:31 12:31 RBC 3.90 L Hgb 12.7 L Hct 35.6 L Sodium 121.2 L Chloride 84 L BUN 23 H Creatinine 1.48 H Est GFR ( Amer) 56 L Est GFR (MDRD) Non-Af 46 L C-Reactive Protein 14.1 H - Diagnostic Test Radiology reviewed: Image reviewed, Reports reviewed - Chest x-ray does not show acute cardiopulmonary process - EKG Interpretation by [facility] EKG shows normal: Sinus rhythm, [place], Intervals, QRS Complexes, ST-T Waves Rate: Normal - 50 [place]/QRS: IVCD Heart block present: 1st Degree When compared to previous EKG there are: No significant change - Consults Dr. Davis Time consulted: 14:40 Consulted provider: will come to ER Discharge - Discharge Clinical Impression: Hyponatremia, Dehydration Acute renal failure Qualifiers: Acute renal failure type: unspecified Qualified Code(s): N17.9 - Acute kidney failure, unspecified Condition: Stable Disposition: ADMITTED INPATIENT Admitting Provider: Susan (Hospitalist) Unit Admitted: IMCU Referrals: SHADIA AZAR PA-C [Primary Care Provider] - Follow up as needed I personally performed the services described in the documentation, reviewed and edited the documentation which was dictated to the scribe in my presence, and it accurately records my words and actions.
[2019-12-09 14:23] LABS: APPEARANCE,URINE CLEAR; BILIRUBIN,URINE NEGATIVE (NEGATIVE); COLOR,URINE YELLOW; GLUCOSE, URINE NEGATIVE (NEGATIVE); KETONES,URINE NEGATIVE (NEGATIVE); LEUKOCYTE ESTERASE,URINE NEGATIVE (NEGATIVE); NITRITE,URINE NEGATIVE (NEGATIVE); PROTEIN,URINE NEGATIVE (NEGATIVE); URINE SPECIFIC GRAVITY 1.011; UROBILINOGEN,URINE NEGATIVE mg/dL (<2.0)
[2019-12-09] MEDS ORDERED: ACETAMINOPHEN 325 MG TABLET PO PRN (15:11)
[2019-12-09] MEDS ORDERED: ONDANSETRON HCL INJ/PF 4 MG/2 ML SDV IV PRN (15:11)
[2019-12-09] MEDS ORDERED: HYDRALAZINE HCL INJ/PF 20 MG/1 ML SDV IV PRN (15:14)
--- NOTE | 2019-12-09 15:24 | PDOC H&P ---
History of Present Illness Admission Date/PCP: 12/09/19 15:12 SHADIA AZAR PA-C Patient complains of: Came to the emergency room with abnormal labs. History of Present Illness: MARGOTH SINGH is a 79 year old male with history of prostate cancer, coronary artery disease with triple bypass 20 years ago, hypertension, previous history of hyponatremia came to the emergency room with abnormal labs of serum sodium of 120. Patient was recently started on hydrochlorothiazide and patient started not feeling well and he was also started on Bactrim recently for prostatitis went to the primary care's office did the lab work sodium came back 120. They referred him to the ER for further evaluation in the emergency room serum sodium is 121.2 and a creatinine was elevated from baseline. Medical consult was called for CHRISTINE and hyponatremia. Past Medical History Cardiac Medical History: Reports: Coronary Artery Disease, Hyperlipidema, Hypertension Denies: Myocardial Infarction Pulmonary Medical History: Reports: Pneumonia Denies: Asthma, Bronchitis, Chronic Obstructive Pulmonary Disease (COPD) Neurological Medical History: Denies: Seizures Endocrine Medical History: Reports: Hypothyroidism GI Medical History: Reports: Gastroesophageal Reflux Disease, Hiatal Hernia - 30 years ago Musculoskeltal Medical History: Reports: Arthritis - shoulders,knees,ribs Hematology: Denies: Anemia Past Surgical History Past Surgical History: Reports: Coronary Artery Bypass Graft - 2000, Orthopedic Surgery - L3-4-5 spinal stenosis; lt shoulder, Tonsillectomy Denies: Pacemaker Social History Lives with: Family Smoking Status: Former Smoker - quit in 1990 Frequency of Alcohol Use: Rare Hx Recreational Drug Use: No Drugs: None Hx Prescription Drug Abuse: No - Advance Directive Resuscitation Status: Full Code Family History Family History: Reviewed & Not Pertinent, COPD Parental Family History Reviewed: Yes - Coronary artery disease Children Family History Reviewed: Yes Sibling(s) Family History Reviewed.: Yes Medication/Allergy Home Medications: Amlodipine Besylate 5 mg PO DAILY 04/18/17 Aspirin [Ecotrin 81 mg EC Tablet] 81 mg PO DAILY 04/18/17 Atorvastatin Calcium 40 mg PO QHS 04/18/17 Benazepril HCl 5 mg PO Q12 04/18/17 Finasteride 5 mg PO QPM 04/18/17 Levothyroxine Sodium 75 mcg PO Q6AM 04/18/17 Omeprazole 20 mg PO Q12 04/18/17 Primidone 50 mg PO Q12 04/18/17 Tamsulosin HCl 0.4 mg PO DAILY 04/18/17 Vitamin B Complex [Super B Complex] 1 each PO DAILY 04/18/17 Albuterol Sulfate [Proair HFA] 1 - 2 puff IH PRN PRN 04/09/18 Metoprolol Succinate 25 mg PO QHS 04/09/18 Ciprofloxacin HCl [Cipro 500 mg Tablet] 500 mg PO BID 14 Days #28 tablet 9 Cephalexin Monohydrate [Keflex 500 mg Capsule] 500 mg PO TID 5 Days #15 capsule 10/07/19 Hydrochlorothiazide [Hydrodiuril 25 mg Tablet] 12.5 mg PO QAM 30 Days #30 tablet 11/20/19 Allergies/Adverse Reactions: No Known Allergies Allergy (Verified 12/09/19 14:58) Review of Systems Constitutional: ABSENT: fever(s) Eyes: ABSENT: visual disturbances Ears: ABSENT: hearing changes Cardiovascular: ABSENT: edema, orthropnea, palpitations Respiratory: ABSENT: dyspnea, hemoptysis Musculoskeletal: ABSENT: deformity, joint swelling Neurological: ABSENT: abnormal movements, confusion, convulsions, focal weakness, frequent falls Psychiatric: ABSENT: anxiety, depression, hallucinations Endocrine: PRESENT: as per HPI Physical Exam Vital Signs: Temp Pulse Resp BP Pulse Ox 98.4 F 52 L 13 139/71 H 100 12/09/19 11:56 12/09/19 11:56 12/09/19 15:01 12/09/19 15:01 12/09/19 15:01 Intake & Output 12/08/19 12/09/19 12/10/19 06:59 06:59 06:59 Intake Total 1000 Balance 1000 Weight 85.3 kg General appearance: PRESENT: no acute distress, cooperative, well-developed Head exam: PRESENT: atraumatic Eye exam: PRESENT: PERRLA Ear exam: PRESENT: normal external ear exam Mouth exam: PRESENT: moist, tongue midline Teeth exam: PRESENT: poor dentation Neck exam: ABSENT: carotid bruit, JVD, lymphadenopathy, thyromegaly Respiratory exam: PRESENT: clear to auscultation misael. ABSENT: rales, rhonchi, wheezes Cardiovascular exam: PRESENT: RRR. ABSENT: diastolic murmur, rubs, systolic murmur Pulses: PRESENT: normal dorsalis pedis pul GI/Abdominal exam: PRESENT: normal bowel sounds, soft. ABSENT: distended, guarding, mass, organolmegaly, rebound, tenderness Rectal exam: PRESENT: deferred Neurological exam: PRESENT: alert, awake, oriented to person, oriented to place, oriented to time, oriented to situation, CN II-XII grossly intact. ABSENT: motor sensory deficit Psychiatric exam: PRESENT: appropriate affect, normal mood. ABSENT: homicidal ideation, suicidal ideation Results Laboratory Results: 12/09/19 12:31 12/09/19 12:31 12/09/19 12/09/19 12/09/19 12: 12:31 13:17 WBC 5.6 RBC 3.90 L Hgb 12.7 L Hct 35.6 L MCV 91 D MCH 32.4 MCHC 35.5 RDW 13.1 Plt Count 190 Seg Neutrophils % 71.4 Sodium 121.2 L Potassium 5.0 Chloride 84 L Carbon Dioxide 27 Anion Gap 10 BUN 23 H Creatinine 1.48 H Est GFR ( Amer) 56 L Glucose 92 Calcium 8.6 Total Bilirubin 0.3 AST 40 Alkaline Phosphatase 71 C-Reactive Protein 14.1 H Total Protein 7.1 Albumin 4.0 Urine Color YELLOW Urine Appearance CLEAR Urine pH 7.0 Ur Specific [place] 1.011 Urine Protein NEGATIVE Urine Glucose (UA) NEGATIVE Urine Ketones NEGATIVE Urine Blood NEGATIVE Urine Nitrite NEGATIVE Ur Leukocyte Esterase NEGATIVE Urine WBC (Auto) 0 Urine RBC (Auto) 0 Impressions: Chest X-Ray 12/09/19 12:07 IMPRESSION: NO ACUTE RADIOGRAPHIC FINDING IN THE CHEST. Assessment and Plan - Diagnosis (1) Hyponatremia Is this a current diagnosis for this admission?: Yes Plan: 12/09/2019-patient is going to be admitted to [facility] [place] as an inpatient with a diagnosis of hyponatremia. Serum sodium is 121.2. He is a full code. Started on IV fluids normal saline 75 cc/h, hydrochlorothiazide and benazepril was discontinued. GI prophylaxis DVT prophylaxis initiated. Fall precautions are requested. Repeat labs are requested for tomorrow. Colace to bring the sodium level up to 127 to128 in the next 24 hours. Patient is not confused not agitated very cooperative able to give a detailed history.. (2) Acute on chronic kidney failure Is this a current diagnosis for this admission?: Yes Plan: 12/09/2019-patient admitted for acute on chronic kidney injury Baseline creatinine is around 0.84. Today's creatinine is 1.48. Acute on chronic kidney injury may be secondary to medications. Benazepril, hydrochlorothiazide, Bactrim on hold. On IV fluids normal saline at 75 cc/h. (3) HTN (hypertension) Is this a current diagnosis for this admission?: No Plan: 12/09/2019-patient has history of chronic essential hypertension started on IV hydralazine 10 mg every 4 hours PRN for systolic blood pressure more than 160 and restarted on metoprolol, amlodipine patient taking at home. (4) CAD (coronary artery disease) Is this a current diagnosis for this admission?: No Plan: 12/09/2019-patient has history of for coronary artery disease status post triple bypass 20 years ago. No complaints of chest pain during this hospital stay. (5) Prostate cancer Is this a current diagnosis for this admission?: No Plan: 12/09/2019-patient given the history of prostate cancer never received chemoradiation therapy he follows with urologist. Presently on Flomax and fin asteride those medications will be continued. To check for PSA during this hospital stay.
[2019-12-09] MEDS: DOCUSATE SODIUM 100 MG CAPSULE PO SCH (18:32)
[2019-12-09] MEDS: NORMAL SALINE 1000 ML 1,000 ML IV PRN (18:32)
--- NOTE | 2019-12-09 19:56 | EKG REPORT ---
SEVERITY:- ABNORMAL ECG - SINUS RHYTHM FIRST DEGREE AV BLOCK NONSPECIFIC INTRAVENTRICULAR CONDUCTION DELAY : Confirmed by: Delvin Barrera MD 09-Dec-2019 19:55:34
[2019-12-09] MEDS: ATORVASTATIN CALCIUM 40 MG TABLET PO SCH (23:30)
[2019-12-09] MEDS: PRIMIDONE 50 MG TABLET PO SCH (23:32)
[2019-12-09] MEDS: METOPROLOL SUCCINATE 25 MG TAB.SR.24H PO SCH (23:34)
[2019-12-09] MEDS: PANTOPRAZOLE SODIUM 20 MG TABLET.DR PO SCH (23:38)
[2019-12-09] MEDS: BENAZEPRIL HCL 20 MG TABLET PO SCH (23:39)
[2019-12-10 03:52] LABS: ABSOLUTE EOSINOPHILS # (AUTO) 0.2 10^3/uL (0.0-0.6); ABSOLUTE LYMPHOCYTES (AUTO) 1.5 10^3/uL (0.5-4.7); ABSOLUTE MONOCYTES (AUTO) 0.6 10^3/uL (0.1-1.4); ABSOLUTE NEUT (AUTO) 2.7 10^3/uL (1.7-8.2); BASOPHILS % (AUTO) 0.7 % (0-2); EOSINOPHILS % (AUTO) 4.3 % (0-6); HEMATOCRIT 32.3 % (37.9-51.0); HEMOGLOBIN 11.2 g/dL (13.5-17.0); LYMPHOCYTES % (AUTO) 29.5 % (13-45); MEAN CORPUSCULAR HEMOGLOBIN 31.9 pg (27.0-33.4); MEAN CORPUSCULAR HGB CONC 34.6 g/dL (32.0-36.0); MEAN CORPUSCULAR VOLUME 92 fl (80-97); MONOCYTES % (AUTO) 12.3 % (3-13); PLATELET COUNT 159 10^3/uL (150-450); RED CELL DISTRIBUTION WIDTH 13.3 % (11.5-14.0); SEGMENTED NEUTROPHILS % (AUTO) 53.2 % (42-78); TOTAL CELLS COUNTED % (AUTO) 100 %; WHITE BLOOD COUNT 5.1 10^3/uL (4.0-10.5)
[2019-12-10 04:11] LABS: ALBUMIN 3.2 g/dL (3.5-5.0); ALKALINE PHOSPHATASE 62 U/L (38-126); ANION GAP 8 (5-19); ASPARTATE AMINO TRANSFERASE 33 U/L (17-59); BILIRUBIN,DIRECT 0.2 mg/dL (0.0-0.4); BILIRUBIN,TOTAL 0.2 mg/dL (0.2-1.3); BLOOD UREA NITROGEN 18 mg/dL (7-20); CALCIUM 7.9 mg/dL (8.4-10.2); CARBON DIOXIDE 25 mmol/L (22-30); CHLORIDE 91 mmol/L (98-107); GLUCOSE 83 mg/dL (75-110); POTASSIUM 4.9 mmol/L (3.6-5.0)
[2019-12-10] MEDS: LEVOTHYROXINE SODIUM 0.075 MG TABLET PO SCH (06:50)
--- NOTE | 2019-12-10 07:59 | PDOC PROGRESS REPORT ---
Subjective Progress Note for:: 12/10/19 Subjective:: 79 year old male with history of prostate cancer, coronary artery disease with triple bypass 20 years ago, hypertension, previous history of hyponatremia came to the emergency room with abnormal labs of serum sodium of 120. Patient was recently started on hydrochlorothiazide and patient started not feeling well and he was also started on Bactrim recently for prostatitis went to the primary care's office did the lab work sodium came back 120. They referred him to the ER for further evaluation in the emergency room serum sodium is 121.2 and a creatinine was elevated from baseline. Medical consult was called for CHRISTINE and hyponatremia. 12/10/19 -79-year-old male admitted with hyponatremia and acute on chronic kidney injury. Serum sodium improved to 123.5 today. Serum creatinine improved to 1.21 with IV fluids normal saline at 75 cc/h. No acute events in the last 24 hours. Reason For Visit: HYPONATREMIA Physical Exam Vital Signs: Temp Pulse Resp BP Pulse Ox 97.4 F 61 16 142/72 H 94 12/10/19 03:35 12/10/19 03:35 12/10/19 03:35 12/10/19 03:35 12/10/19 03:35 Intake & Output 12/09/19 12/10/19 12/11/19 06:59 06:59 06:59 Intake Total 1250 Balance 1250 Weight 86.5 kg General appearance: PRESENT: no acute distress, well-developed Head exam: PRESENT: atraumatic Eye exam: PRESENT: PERRLA Mouth exam: PRESENT: moist, tongue midline Teeth exam: PRESENT: poor dentation Neck exam: ABSENT: carotid bruit, JVD, lymphadenopathy, thyromegaly Respiratory exam: PRESENT: decreased breath sounds Cardiovascular exam: PRESENT: RRR. ABSENT: diastolic murmur, rubs, systolic murmur Pulses: PRESENT: normal dorsalis pedis pul GI/Abdominal exam: PRESENT: normal bowel sounds, soft. ABSENT: distended, guarding, mass, organolmegaly, rebound, tenderness Rectal exam: PRESENT: deferred Neurological exam: PRESENT: alert, awake, oriented to person, oriented to place, oriented to time, oriented to situation, CN II-XII grossly intact. ABSENT: motor sensory deficit Psychiatric exam: PRESENT: appropriate affect, normal mood. ABSENT: homicidal ideation, suicidal ideation Results Laboratory Results: 12/10/19 03:40 12/10/19 03:40 12/09/19 12/09/19 12/09/19 12:31 12:31 13:17 WBC 5.6 RBC 3.90 L Hgb 12.7 L Hct 35.6 L MCV 91 D MCH 32.4 MCHC 35.5 RDW 13.1 Plt Count 190 Seg Neutrophils % 71.4 Sodium 121.2 L Potassium 5.0 Chloride 84 L Carbon Dioxide 27 Anion Gap 10 BUN 23 H Creatinine 1.48 H Est GFR ( Amer) 56 L Glucose 92 Calcium 8.6 Magnesium Total Bilirubin 0.3 AST 40 Alkaline Phosphatase 71 C-Reactive Protein 14.1 H Total Protein 7.1 Albumin 4.0 TSH Urine Color YELLOW Urine Appearance CLEAR Urine pH 7.0 Ur Specific [place] 1.011 Urine Protein NEGATIVE Urine Glucose (UA) NEGATIVE Urine Ketones NEGATIVE Urine Blood NEGATIVE Urine Nitrite NEGATIVE Ur Leukocyte Esterase NEGATIVE Urine WBC (Auto) 0 Urine RBC (Auto) 0 12/10/19 12/10/19 12/10/19 03:40 03:40 03:40 WBC 5.1 RBC 3.50 L Hgb 11.2 L Hct 32.3 L MCV 92 MCH 31.9 MCHC 34.6 RDW 13.3 Plt Count 159 Seg Neutrophils % 53.2 Sodium 123.5 L Potassium 4.9 Chloride 91 L Carbon Dioxide 25 Anion Gap 8 BUN 18 Creatinine 1.21 Est GFR ( Amer) > 60 Glucose 83 Calcium 7.9 L Magnesium 1.7 Total Bilirubin 0.2 AST 33 Alkaline Phosphatase 62 C-Reactive Protein Total Protein 6.0 L Albumin 3.2 L TSH 2.64 Urine Color Urine Appearance Urine pH Ur Specific [place] Urine Protein Urine Glucose (UA) Urine Ketones Urine Blood Urine Nitrite Ur Leukocyte Esterase Urine WBC (Auto) Urine RBC (Auto) 12/09/19 12/09/19 12/10/19 12:31 21:16 03:40 Troponin I < 0.012 < 0.012 < 0.012 NT-Pro-B Natriuret Pep 12/10/19 03:40 Troponin I NT-Pro-B Natriuret Pep 209 Impressions: Chest X-Ray 12/09/19 12:07 IMPRESSION: NO ACUTE RADIOGRAPHIC FINDING IN THE CHEST. Assessment and Plan - Diagnosis (1) Hyponatremia Is this a current diagnosis for this admission?: Yes Plan: 12/09/2019-patient is going to be admitted to [facility] as an inpatient with a diagnosis of hyponatremia. Serum sodium is 121.2. He is a full code. Started on IV fluids normal saline 75 cc/h, hydrochlorothiazide and benazepril was discontinued. GI prophylaxis DVT prophylaxis initiated. Fall precautions are requested. Repeat labs are requested for tomorrow. Colace to bring the sodium level up to 127 to128 in the next 24 hours. Patient is not confused not agitated very cooperative able to give a detailed history.. 12/10/2019-admission serum sodium is 121.5 improved to 123 5 with IV fluids at 75 cc/h. Hydrochlorothiazide and benazepril on hold. plan is to continue IV fluids and recheck labs tomorrow. (2) Acute on chronic kidney failure Is this a current diagnosis for this admission?: Yes Plan: 12/09/2019-patient admitted for acute on chronic kidney injury Baseline creatinine is around 0.84. Today's creatinine is 1.48. Acute on chronic kidney injury may be secondary to medications. Benazepril, hydrochlorothiazide, Bactrim on hold. On IV fluids normal saline at 75 cc/h. 12/10/2019-patient admitted with acute on chronic kidney injury Baseline cre atinine is around 0.84. On admission creatinine is 1.48 with IV fluids improved to 1.21. (3) HTN (hypertension) Is this a current diagnosis for this admission?: No Plan: 12/09/2019-patient has history of chronic essential hypertension started on IV hydralazine 10 mg every 4 hours PRN for systolic blood pressure more than 160 and restarted on metoprolol, amlodipine patient taking at home. 12/10/2019-blood pressure today is 142/72. Stable. Patient is on amlodipine, IV hydralazine 10 mg every 6 hours PRN for systolic blood pressure more than 160. (4) CAD (coronary artery disease) Is this a current diagnosis for this admission?: No Plan: 12/09/2019-patient has history of for coronary artery disease status post triple bypass 20 years ago. No complaints of chest pain during this hospital stay. 12/09/2017 patient history of coronary artery disease status post triple bypass, denies any chest pains this morning. (5) Prostate cancer Is this a current diagnosis for this admission?: No
[2019-12-10] MEDS: NORMAL SALINE 1000 ML 1,000 ML IV PRN ×2 (08:52→21:34)
[2019-12-10] MEDS ORDERED: (PENDING PHARMACY ID) (Vitamin B Complex [Super B Complex] 1 EACH) PO SCH (10:00)
[2019-12-10] MEDS ORDERED: WHEAT DEXTRIN PO SCH (10:00)
[2019-12-10] MEDS: VITAMIN B COMPLEX TABLET PO SCH (10:21)
[2019-12-10] MEDS: POLYETHYLENE GLYCOL 3350 POWDER 17 GM/1 PACKET PO SCH (10:21)
[2019-12-10] MEDS: TAMSULOSIN HCL 0.4 MG CAP.SR.24H PO SCH (10:21)
[2019-12-10] MEDS: DOCUSATE SODIUM 100 MG CAPSULE PO SCH ×2 (10:21→18:31)
[2019-12-10] MEDS: PANTOPRAZOLE SODIUM 20 MG TABLET.DR PO SCH ×2 (10:21→21:35)
[2019-12-10] MEDS: PRIMIDONE 50 MG TABLET PO SCH ×2 (10:21→21:35)
[2019-12-10] MEDS: ASPIRIN 81 MG TABLET, ENT COATED PO SCH (10:21)
[2019-12-10] MEDS: AMLODIPINE BESYLATE 5 MG TABLET PO SCH (10:21)
[2019-12-10] MEDS: ENOXAPARIN SODIUM INJ 40 MG/0.4 ML DISP.SYRIN SUBCUT SCH (10:22)
[2019-12-10] MEDS: BENAZEPRIL HCL 20 MG TABLET PO SCH ×2 (10:22→21:36)
[2019-12-10] MEDS: FINASTERIDE 5 MG TABLET PO SCH (18:31)
[2019-12-10] MEDS: ATORVASTATIN CALCIUM 40 MG TABLET PO SCH (21:34)
[2019-12-10] MEDS: METOPROLOL SUCCINATE 25 MG TAB.SR.24H PO SCH (21:34)
[2019-12-11] MEDS: LEVOTHYROXINE SODIUM 0.075 MG TABLET PO SCH (06:02)
[2019-12-11 07:24] LABS: ABSOLUTE EOSINOPHILS # (AUTO) 0.2 10^3/uL (0.0-0.6); ABSOLUTE LYMPHOCYTES (AUTO) 1.2 10^3/uL (0.5-4.7); ABSOLUTE MONOCYTES (AUTO) 0.5 10^3/uL (0.1-1.4); ABSOLUTE NEUT (AUTO) 2.8 10^3/uL (1.7-8.2); BASOPHILS % (AUTO) 0.5 % (0-2); EOSINOPHILS % (AUTO) 5.2 % (0-6); HEMATOCRIT 32.6 % (37.9-51.0); HEMOGLOBIN 11.4 g/dL (13.5-17.0); LYMPHOCYTES % (AUTO) 24.9 % (13-45); MEAN CORPUSCULAR HEMOGLOBIN 32.2 pg (27.0-33.4); MEAN CORPUSCULAR HGB CONC 34.9 g/dL (32.0-36.0); MEAN CORPUSCULAR VOLUME 92 fl (80-97); PLATELET COUNT 167 10^3/uL (150-450); RED BLOOD COUNT 3.53 10^6/uL (4.35-5.55); RED CELL DISTRIBUTION WIDTH 13.2 % (11.5-14.0); SEGMENTED NEUTROPHILS % (AUTO) 58.4 % (42-78); TOTAL CELLS COUNTED % (AUTO) 100 %; WHITE BLOOD COUNT 4.8 10^3/uL (4.0-10.5)
[2019-12-11 07:41] LABS: ALKALINE PHOSPHATASE 63 U/L (38-126); ANION GAP 5 (5-19); ASPARTATE AMINO TRANSFERASE 31 U/L (17-59); BILIRUBIN,TOTAL 0.1 mg/dL (0.2-1.3); BLOOD UREA NITROGEN 11 mg/dL (7-20); CALCIUM 7.8 mg/dL (8.4-10.2); CARBON DIOXIDE 27 mmol/L (22-30); CHLORIDE 94 mmol/L (98-107); GLUCOSE 81 mg/dL (75-110); POTASSIUM 4.9 mmol/L (3.6-5.0); TOTAL PROTEIN 5.2 g/dL (6.3-8.2)
[2019-12-11 08:05] LABS: PROSTATE SPECIFIC ANTIGEN 2.8 ng/mL (0.0-4.0); PSA % FREE 18.2 % (.); PSA FREE 0.51 ng/mL
[2019-12-11] MEDS: VITAMIN B COMPLEX TABLET PO SCH (09:17)
[2019-12-11] MEDS: ASPIRIN 81 MG TABLET, ENT COATED PO SCH (09:17)
[2019-12-11] MEDS: TAMSULOSIN HCL 0.4 MG CAP.SR.24H PO SCH (09:18)
[2019-12-11] MEDS: BENAZEPRIL HCL 20 MG TABLET PO SCH ×2 (09:19→21:36)
[2019-12-11] MEDS: AMLODIPINE BESYLATE 5 MG TABLET PO SCH (09:19)
[2019-12-11] MEDS: PANTOPRAZOLE SODIUM 20 MG TABLET.DR PO SCH ×2 (09:20→21:36)
[2019-12-11] MEDS: DOCUSATE SODIUM 100 MG CAPSULE PO SCH ×2 (09:21→17:40)
[2019-12-11] MEDS: POLYETHYLENE GLYCOL 3350 POWDER 17 GM/1 PACKET PO SCH (09:21)
[2019-12-11] MEDS: ENOXAPARIN SODIUM INJ 40 MG/0.4 ML DISP.SYRIN SUBCUT SCH (09:22)
[2019-12-11] MEDS: PRIMIDONE 50 MG TABLET PO SCH ×2 (09:22→21:36)
--- NOTE | 2019-12-11 10:02 | PDOC PROGRESS REPORT ---
Subjective Progress Note for:: 12/11/19 Subjective:: 79 year old male with history of prostate cancer, coronary artery disease with triple bypass 20 years ago, hypertension, previous history of hyponatremia came to the emergency room with abnormal labs of serum sodium of 120. Patient was recently started on hydrochlorothiazide and patient started not feeling well and he was also started on Bactrim recently for prostatitis went to the primary care's office did the lab work sodium came back 120. They referred him to the ER for further evaluation in the emergency room serum sodium is 121.2 and a creatinine was elevated from baseline. Medical consult was called for CHRISTINE and hyponatremia. 12/10/19 -79-year-old male admitted with hyponatremia and acute on chronic kidney injury. Serum sodium improved to 123.5 today. Serum creatinine improved to 1.21 with IV fluids normal saline at 75 cc/h. No acute events in the last 24 hours. 12/11/[id number]-otrs-old male admitted with hyponatremia secondary to medications receiving IV fluids normal saline at 75 cc/h serum sodium is 125.7 today. Alert awake communicating well. Complaining of mild wheezing in the chest requesting inhalers. Reason For Visit: HYPONATREMIA Physical Exam Vital Signs: Temp Pulse Resp BP Pulse Ox 98.2 F 55 L 16 158/75 H 96 12/11/19 07:35 12/11/19 07:35 12/11/19 07:35 12/11/19 07:35 12/11/19 07:35 Intake & Output 12/10/19 12/11/19 12/12/19 06:59 06:59 06:59 Intake Total 1250 3103 Output Total 2625 Balance 1250 478 Weight 86.5 kg 89.3 kg General appearance: PRESENT: no acute distress, well-developed Head exam: PRESENT: atraumatic Eye exam: PRESENT: PERRLA Mouth exam: PRESENT: moist, tongue midline Teeth exam: PRESENT: poor dentation Neck exam: PRESENT: lymphadenopathy Respiratory exam: PRESENT: decreased breath sounds, wheezes GI/Abdominal exam: PRESENT: normal bowel sounds, soft. ABSENT: distended, guarding, mass, organolmegaly, rebound, tenderness Rectal exam: PRESENT: deferred Extremities exam: PRESENT: full ROM. ABSENT: calf tenderness, clubbing, pedal edema Neurological exam: PRESENT: alert, awake, oriented to person, oriented to place, oriented to time, oriented to situation, CN II-XII grossly intact. ABSENT: motor sensory deficit Psychiatric exam: PRESENT: appropriate affect, normal mood. ABSENT: homicidal ideation, suicidal ideation Results Laboratory Results: 12/11/19 07:11 12/11/19 07:11 12/09/19 12/11/19 12/11/19 12:31 07:11 07:11 WBC 4.8 RBC 3.53 L Hgb 11.4 L Hct 32.6 L MCV 92 MCH 32.2 MCHC 34.9 RDW 13.2 Plt Count 167 Seg Neutrophils % 58.4 Sodium 125.7 L Potassium 4.9 Chloride 94 L Carbon Dioxide 27 Anion Gap 5 BUN 11 Creatinine 0.98 Est GFR ( Amer) > 60 Glucose 81 Calcium 7.8 L Magnesium 1.7 Total Bilirubin 0.1 L AST 31 Alkaline Phosphatase 63 Total Protein 5.2 L Albumin 3.0 L Prostate Specific Ag 2.8 Free PSA 0.51 % Free PSA 18.2 12/09/19 12/09/19 12/10/19 12:31 21:16 03:40 Troponin I < 0.012 < 0.012 < 0.012 NT-Pro-B Natriuret Pep 12/10/19 03:40 Troponin I NT-Pro-B Natriuret Pep 209 Impressions: Chest X-Ray 12/09/19 12:07 IMPRESSION: NO ACUTE RADIOGRAPHIC FINDING IN THE CHEST. Assessment and Plan - Diagnosis (1) Hyponatremia Is this a current diagnosis for this admission?: Yes Plan: 12/09/2019-patient is going to be admitted to [facility] as an inpatient with a diagnosis of hyponatremia. Serum sodium is 121.2. He is a full code. Started on IV fluids normal saline 75 cc/h, hydrochlorothiazide and benazepril was discontinued. GI prophylaxis DVT prophylaxis initiated. Fall precautions are requested. Repeat labs are requested for tomorrow. Colace to bring the sodium level up to 127 to128 in the next 24 hours. Patient is not confused not agitated very cooperative able to give a detailed history.. 12/10/2019-admission serum sodium is 121.5 improved to 123.5 with IV fluids at 75 cc/h. Hydrochlorothiazide and benazepril on hold. plan is to continue IV fluids and recheck labs tomorrow. 12/11/2019-patient admitted with hyponatremia secondary to medications on normal saline at 75 cc/h. Today serum sodium is 125.7. Patient agreed to stay 1 more night for continuation of IV fluid therapy. (2) Acute on chronic kidney failure Is this a current diagnosis for this admission?: Yes Plan: 12/09/2019-patient admitted for acute on chronic kidney injury Baseline creatin ine is around 0.84. Today's creatinine is 1.48. Acute on chronic kidney injury may be secondary to medications. Benazepril, hydrochlorothiazide, Bactrim on hold. On IV fluids normal saline at 75 cc/h. 12/10/2019-patient admitted with acute on chronic kidney injury Baseline creatinine is around 0.84. On admission creatinine is 1.48 with IV fluids improved to 1.21. 12/11/2019-creatinine today 0.98 and acute kidney injury is resolved. (3) HTN (hypertension) Is this a current diagnosis for this admission?: No Plan: 12/09/2019-patient has history of chronic essential hypertension started on IV hydralazine 10 mg every 4 hours PRN for systolic blood pressure more than 160 and restarted on metoprolol, amlodipine patient taking at home. 12/10/2019-blood pressure today is 142/72. Stable. Patient is on amlodipine, IV hydralazine 10 mg every 6 hours PRN for systolic blood pressure more than 160. 12/11/2019-blood pressure today is 155/75. Stable. Presently on IV hydralazine 10 mg every 6 hours as needed for systolic blood pressure more than 160. (4) CAD (coronary artery disease) Is this a current diagnosis for this admission?: No Plan: 12/09/2019-patient has history of for coronary artery disease status post triple bypass 20 years ago. No complaints of chest pain during this hospital stay. 12/09/2017 patient history of coronary artery disease status post triple bypass, denies any chest pains this morning. (5) Prostate cancer Is this a current diagnosis for this admission?: No Plan: 12/09/2019-patient given the history of prostate cancer never received chemoradiation therapy he follows with urologist. Presently on Flomax and finasteride those medications will be continued. To check for PSA during this hospital stay.
[2019-12-11] MEDS: NORMAL SALINE 1000 ML 1,000 ML IV PRN (12:01)
[2019-12-11] MEDS: ALBUTEROL SULFATE HFA (90 MCG/PUFF) 8 GM MDI IH PRN ×2 (12:05→21:39)
[2019-12-11] MEDS: FINASTERIDE 5 MG TABLET PO SCH (17:40)
[2019-12-11] MEDS: ATORVASTATIN CALCIUM 40 MG TABLET PO SCH (21:36)
[2019-12-11] MEDS: METOPROLOL SUCCINATE 25 MG TAB.SR.24H PO SCH (21:36)
[2019-12-12] MEDS: NORMAL SALINE 1000 ML 1,000 ML IV PRN (00:15)
[2019-12-12] MEDS: LEVOTHYROXINE SODIUM 0.075 MG TABLET PO SCH (05:31)
[2019-12-12 06:37] LABS: ABSOLUTE EOSINOPHILS # (AUTO) 0.3 10^3/uL (0.0-0.6); ABSOLUTE LYMPHOCYTES (AUTO) 1.2 10^3/uL (0.5-4.7); ABSOLUTE MONOCYTES (AUTO) 0.5 10^3/uL (0.1-1.4); ABSOLUTE NEUT (AUTO) 2.7 10^3/uL (1.7-8.2); BASOPHILS % (AUTO) 0.7 % (0-2); EOSINOPHILS % (AUTO) 6.4 % (0-6); HEMATOCRIT 31.2 % (37.9-51.0); HEMOGLOBIN 11.1 g/dL (13.5-17.0); LYMPHOCYTES % (AUTO) 25.5 % (13-45); MEAN CORPUSCULAR HEMOGLOBIN 32.6 pg (27.0-33.4); MEAN CORPUSCULAR HGB CONC 35.5 g/dL (32.0-36.0); MEAN CORPUSCULAR VOLUME 92 fl (80-97); MONOCYTES % (AUTO) 10.7 % (3-13); PLATELET COUNT 157 10^3/uL (150-450); RED BLOOD COUNT 3.39 10^6/uL (4.35-5.55); RED CELL DISTRIBUTION WIDTH 12.8 % (11.5-14.0); SEGMENTED NEUTROPHILS % (AUTO) 56.7 % (42-78); TOTAL CELLS COUNTED % (AUTO) 100 %; WHITE BLOOD COUNT 4.8 10^3/uL (4.0-10.5)
[2019-12-12 06:56] LABS: ALKALINE PHOSPHATASE 56 U/L (38-126); ANION GAP 5 (5-19); ASPARTATE AMINO TRANSFERASE 30 U/L (17-59); BILIRUBIN,TOTAL 0.1 mg/dL (0.2-1.3); BLOOD UREA NITROGEN 9 mg/dL (7-20); CALCIUM 7.6 mg/dL (8.4-10.2); CARBON DIOXIDE 27 mmol/L (22-30); CHLORIDE 97 mmol/L (98-107); GLUCOSE 78 mg/dL (75-110); POTASSIUM 4.7 mmol/L (3.6-5.0); TOTAL PROTEIN 5.4 g/dL (6.3-8.2)
[2019-12-12 08:46] VITALS: BP 137/73
--- NOTE | 2019-12-12 09:55 | PDOC DISCHARGE SUMMARY ---
Impression - Admit/DC Date/PCP Admission Date/Primary Care Provider: 12/09/19 15:12 SHADIA AZAR PA-C Discharge Date: 12/12/19 - Discharge Diagnosis (1) Hyponatremia Is this a current diagnosis for this admission?: Yes (2) Acute on chronic kidney failure Is this a current diagnosis for this admission?: Yes (3) HTN (hypertension) Is this a current diagnosis for this admission?: No (4) CAD (coronary artery disease) Is this a current diagnosis for this admission?: No (5) Prostate cancer Is this a current diagnosis for this admission?: No - Assessment Summary: (1) Hyponatremia Is this a current diagnosis for this admission?: Yes Plan: 12/09/2019-patient is going to be admitted to [facility] as an inpatient with a diagnosis of hyponatremia. Serum sodium is 121.2. He is a full code. Started on IV fluids normal saline 75 cc/h, hydrochlorothiazide and benazepril was discontinued. GI prophylaxis DVT prophylaxis initiated. Fall precautions are requested. Repeat labs are requested for tomorrow. Colace to bring the sodium level up to 127 to128 in the next 24 hours. Patient is not confused not agitated very cooperative able to give a detailed history.. 12/10/2019-admission serum sodium is 121.5 improved to 123.5 with IV fluids at 75 cc/h. Hydrochlorothiazide and benazepril on hold. plan is to continue IV fluids and recheck labs tomorrow. 12/11/2019-patient admitted with hyponatremia secondary to medications on normal saline at 75 cc/h. Today serum sodium is 125.7. Patient agreed to stay 1 more night for continuation of IV fluid therapy. 12/12/2019-patient admitted with hyponatremia with a serum sodium of around 120 it is improved to 128.5 today. Bactrim on hold hydrochlorothiazide hold benazepril on hold. Patient is advised to follow-up with primary care physician in 3 t0 5 days to redraw the labs and to receive recommendations about the medication use. (2) Acute on chronic kidney failure Is this a current diagnosis for this admission?: Yes Plan: 12/09/2019-patient admitted for acute on chronic kidney injury Baseline creatinine is around 0.84. Today's creatinine is 1.48. Acute on chronic kidney injury may be secondary to medications. Benazepril, hydrochlorothiazide, Bactrim on hold. On IV fluids normal saline at 75 cc/h. 12/10/2019-patient admitted with acute on chronic kidney injury Baseline creatinine is around 0.84. On admission creatinine is 1.48 with IV fluids improved to 1.21. 12/11/2019-creatinine today 0.98 and acute kidney injury is resolved. 12/12/2019-serum creatinine today 0.81 back to the baseline. Acute kidney injury is resolved. (3) HTN (hypertension) Is this a current diagnosis for this admission?: No Plan: 12/09/2019-patient has history of chronic essential hypertension started on IV hydralazine 10 mg every 4 hours PRN for systolic blood pressure more than 160 and restarted on metoprolol, amlodipine patient taking at home. 12/10/2019-blood pressure today is 142/72. Stable. Patient is on amlodipine, IV hydralazine 10 mg every 6 hours PRN for systolic blood pressure more than 160. 12/11/2019-blood pressure today is 155/75. Stable. Presently on IV hydralazine 10 mg every 6 hours as needed for systolic blood pressure more than 160. 12/12/2019-blood pressure today is 154/75. Stable. Patient advised to continue amlodipine at home. (4) CAD (coronary artery disease) Is this a current diagnosis for this admission?: No Plan: 12/09/2019-patient has history of for coronary artery disease status post triple bypass 20 years ago. No complaints of chest pain during this hospital stay. 12/09/2017 patient history of coronary artery disease status post triple bypass, denies any chest pains this morning. (5) Prostate cancer Is this a current diagnosis for this admission?: No Plan: 12/09/2019-patient given the history of prostate cancer never received chemoradiation therapy he follows with urologist. Presently on Flomax and finasteride those medications will be continued. To check for PSA during this hospital stay. - Additional Information Resuscitation Status: Full Code Discharge Diet: Cardiac Discharge Activity: Activity As Tolerated Referrals: SHADIA AZAR PA-C [Primary Care Provider] - Follow up as needed Prescriptions: Albuterol Sulfate [Ventolin Hfa 8 gm Mdi] 2 puff IH Q4HP PRN #2 inhaler PRN Reason: Home Medications: Amlodipine Besylate 5 mg PO DAILY 04/18/17 Aspirin [Ecotrin 81 mg EC Tablet] 81 mg PO DAILY 04/18/17 Atorvastatin Calcium 40 mg PO QHS 04/18/17 Finasteride 5 mg PO QPM 04/18/17 Levothyroxine Sodium 75 mcg PO Q6AM 04/18/17 Omeprazole 20 mg PO Q12 04/18/17 Primidone 200 mg PO Q12 04/18/17 Tamsulosin HCl 0.4 mg PO DAILY 04/18/17 Vitamin B Complex [Super B Complex] 1 each PO DAILY 04/18/17 Metoprolol Succinate 25 mg PO QHS 04/09/18 Polyethylene Glycol 3350 [Miralax Powder 17 gm/Packet] 1 packet PO DAILY 12/09/19 Wheat Dextrin [Benefiber] 1 each PO DAILY 12/09/19 Albuterol Sulfate [Ventolin Hfa 8 gm Mdi] 2 puff IH Q4HP PRN #2 inhaler 12/12/19 History of Present Illiness History of Present Illness: MARGOTH SINGH is a 79 year old male with history of prostate cancer, coronary artery disease with triple bypass 20 years ago, hypertension, previous history of hyponatremia came to the emergency room with abnormal labs of serum sodium of 120. Patient was recently started on hydrochlorothiazide and patient started not feeling well and he was also started on Bactrim recently for prostatitis went to the primary care's office did the lab work sodium came back 120. They referred him to the ER for further evaluation in the emergency room serum sodium is 121.2 and a creatinine was elevated from baseline. Medical consult was call ed for CHRISTINE and hyponatremia. Hospital Course Hospital Course: 79 year old male with history of prostate cancer, coronary artery disease with triple bypass 20 years ago, hypertension, previous history of hyponatremia came to the emergency room with abnormal labs of serum sodium of 120. Patient was recently started on hydrochlorothiazide and patient started not feeling well and he was also started on Bactrim recently for prostatitis went to the primary care's office did the lab work sodium came back 120. They referred him to the ER for further evaluation in the emergency room serum sodium is 121.2 and a creatinine was elevated from baseline. Medical consult was called for CHRISTINE and hyponatremia. 12/10/19 -79-year-old male admitted with hyponatremia and acute on chronic kidney injury. Serum sodium improved to 123.5 today. Serum creatinine improved to 1.21 with IV fluids normal saline at 75 cc/h. No acute events in the last 24 hours. 12/11/[id number]-wqrb-old male admitted with hyponatremia secondary to medications receiving IV fluids normal saline at 75 cc/h serum sodium is 125.7 today. Alert awake communicating well. Complaining of mild wheezing in the chest requesting inhalers. 12/12/2019-patient admitted with hyponatremia with IV fluids and discontinue of the blood pressure medications resolving. No acute events during the hospital stay. Acute kidney injury is also resolved. Physical Exam Vital Signs: Temp Pulse Resp BP Pulse Ox 97.5 F 62 16 137/73 H 97 12/12/19 08:46 12/12/19 08:46 12/12/19 08:46 12/12/19 08:46 12/12/19 08:46 Intake & Output 12/11/19 12/12/19 12/13/19 06:59 06:59 06:59 Intake Total 3103 2997 Output Total 2625 3145 Balance 478 -148 Weight 89.3 kg 91.1 kg General appearance: PRESENT: no acute distress, well-developed Head exam: PRESENT: atraumatic Eye exam: PRESENT: PERRLA Mouth exam: PRESENT: moist, tongue midline Teeth exam: PRESENT: poor dentation Neck exam: ABSENT: carotid bruit, JVD, lymphadenopathy, thyromegaly Respiratory exam: PRESENT: decreased breath sounds Cardiovascular exam: PRESENT: RRR. ABSENT: diastolic murmur, rubs, systolic murmur GI/Abdominal exam: PRESENT: normal bowel sounds, soft. ABSENT: distended, guarding, mass, organolmegaly, rebound, tenderness Rectal exam: PRESENT: deferred Neurological exam: PRESENT: alert, awake, oriented to person, oriented to place, oriented to time, oriented to situation, CN II-XII grossly intact. ABSENT: motor sensory deficit Results Laboratory Results: WBC 4.8 10^3/uL (4.0-10.5) 12/12/19 05:16 RBC 3.39 10^6/uL (4.35-5.55) L 12/12/19 05:16 Hgb 11.1 g/dL (13.5-17.0) L 12/12/19 05:16 Hct 31.2 % (37.9-51.0) L 12/12/19 05:16 MCV 92 fl (80-97) 12/12/19 05:16 MCH 32.6 pg (27.0-33.4) 12/12/19 05:16 MCHC 35.5 g/dL (32.0-36.0) 12/12/19 05:16 RDW 12.8 % (11.5-14.0) 12/12/19 05:16 Plt Count 157 10^3/uL (150-450) 12/12/19 05:16 Lymph % (Auto) 25.5 % (13-45) 12/12/19 05:16 Cole % (Auto) 10.7 % (3-13) 12/12/19 05:16 Eos % (Auto) 6.4 % (0-6) H 12/12/19 05:16 Baso % (Auto) 0.7 % (0-2) 12/12/19 05:16 Absolute Neuts (auto) 2.7 10^3/uL (1.7-8.2) 12/12/19 05:16 Absolute Lymphs (auto) 1.2 10^3/uL (0.5-4.7) 12/12/19 05:16 Absolute Monos (auto) 0.5 10^3/uL (0.1-1.4) 12/12/19 05:16 Absolute Eos (auto) 0.3 10^3/uL (0.0-0.6) 12/12/19 05:16 Absolute Basos (auto) 0.0 10^3/uL (0.0-0.2) 12/12/19 05:16 Seg Neutrophils % 56.7 % (42-78) 12/12/19 05:16 Sodium 128.5 mmol/L (137-145) L 12/12/19 05:16 Potassium 4.7 mmol/L (3.6-5.0) 12/12/19 05:16 Chloride 97 mmol/L (98-107) L 12/12/19 05:16 Carbon Dioxide 27 mmol/L (22-30) 12/12/19 05:16 Anion Gap 5 (5-19) 12/12/19 05:16 BUN 9 mg/dL (7-20) 12/12/19 05:16 Creatinine 0.81 mg/dL (0.52-1.25) 12/12/19 05:16 Est GFR ( Amer) > 60 (>60) 12/12/19 05:16 Est GFR (MDRD) Non-Af > 60 (>60) 12/12/19 05:16 Glucose 78 mg/dL (75-110) 12/12/19 05:16 Hemoglobin A1c % 5.6 % (4.7-6.0) 12/10/19 03:40 Calcium 7.6 mg/dL (8.4-10.2) L 12/12/19 05:16 Magnesium 1.7 mg/dL (1.6-2.3) 12/12/19 05:16 Total Bilirubin 0.1 mg/dL (0.2-1.3) L 12/12/19 05:16 Direct Bilirubin 0.0 mg/dL (0.0-0.4) 12/12/19 05:16 Neonat Total Bilirubin Not Reportable 12/12/19 05:16 Neonat Direct Bilirubin Not Reportable 12/12/19 05:16 Neonat Indirect Bili Not Reportable 12/12/19 05:16 AST 30 U/L (17-59) 12/12/19 05:16 ALT 30 U/L (<50) 12/12/19 05:16 Alkaline Phosphatase 56 U/L (38-126) 12/12/19 05:16 Troponin I < 0.012 ng/mL 12/10/19 03:40 C-Reactive Protein 14.1 mg/L (<10.0) H 12/09/19 12:31 NT-Pro-B Natriuret Pep 209 pg/mL (<450) 12/10/19 03:40 Total Protein 5.4 g/dL (6.3-8.2) L 12/12/19 05:16 Albumin 3.0 g/dL (3.5-5.0) L 12/12/19 05:16 Prostate Specific Ag 2.8 ng/mL (0.0-4.0) 12/09/19 12:31 Free PSA 0.51 ng/mL (N/A) 12/09/19 12:31 % Free PSA 18.2 % (.) 12/09/19 12:31 TSH 2.64 uIU/mL (0.47-4.68) 12/10/19 03:40 Urine Color YELLOW 12/09/19 13:17 Urine Appearance CLEAR 12/09/19 13:17 Urine pH 7.0 (5.0-9.0) 12/09/19 13:17 Ur Specific [place] 1.011 12/09/19 13:17 Urine Protein NEGATIVE mg/dL (NEGATIVE) 12/09/19 13:17 Urine Glucose (UA) NEGATIVE mg/dL (NEGATIVE) 12/09/19 13:17 Urine Ketones NEGATIVE mg/dL (NEGATIVE) 12/09/19 13:17 Urine Blood NEGATIVE (NEGATIVE) 12/09/19 13:17 Urine Nitrite NEGATIVE (NEGATIVE) 12/09/19 13:17 Urine Bilirubin NEGATIVE (NEGATIVE) 12/09/19 13:17 Urine Urobilinogen NEGATIVE mg/dL (<2.0) 12/09/19 13:17 Ur Leukocyte Esterase NEGATIVE (NEGATIVE) 12/09/19 13:17 Urine WBC (Auto) 0 /HPF 12/09/19 13:17 Urine RBC (Auto) 0 /HPF 12/09/19 13:17 U Hyaline Cast (Auto) 1 /LPF 12/09/19 13:17 Urine Mucus (Auto) RARE /LPF 12/09/19 13:17 Urine Ascorbic Acid NEGATIVE (NEGATIVE) 12/09/19 13:17 12/09/19 12/09/19 12/10/19 12:31 21:16 03:40 Troponin I < 0.012 < 0.012 < 0.012 NT-Pro-B Natriuret Pep 12/10/19 03:40 Troponin I NT-Pro-B Natriuret Pep 209 Impressions: Chest X-Ray 12/09/19 12:07 IMPRESSION: NO ACUTE RADIOGRAPHIC FINDING IN THE CHEST. Plan Plan of Treatment: Patient is advised to not to take Bactrim, benazepril, hydrochlorothiazide until he sees his primary care physician. Patient agreed and verbalized response. Time Spent: Greater than 30 Minutes Stroke Is this a Stroke Patient?: No Acute Heart Failure - Is this a Heart Failure Patient?: No
== END 2019-12-12 09:10 | disposition home or self-care (01) | DRG 683 ==
LOC: ER 11:51 → EH 15:12 → 3W 18:09
PROVIDERS: ADMIT Internal Medicine; ATTEND Internal Medicine
DX: N17.9 Acute kidney failure, unspecified (principal); E87.1 Hypo-osmolality and hyponatremia; R88.8 Abnormal findings in other body fluids and substances; E78.00 Pure hypercholesterolemia, unspecified; I10 Essential (primary) hypertension; E03.9 Hypothyroidism, unspecified; C61 Malignant neoplasm of prostate; N40.0 Benign prostatic hyperplasia without lower urinary tract symptoms; K21.9 Gastro-esophageal reflux disease without esophagitis; E86.0 Dehydration; I25.2 Old myocardial infarction; Z79.82 Long term (current) use of aspirin; Z79.51 Long term (current) use of inhaled steroids; Z79.899 Other long term (current) drug therapy
CPT/HCPCS: 36415; 71045; 80053; 81001; 83036; 83735; 83880; 84154; 84443; 84484; 85025; 86140; 93005; 93010; 96360; 99285; J1650; J3490; J7030

== ENCOUNTER 2019-12-12 21:08 | Emergency (ER) | payer MEDICARE ==
[2019-12-12 22:27] LABS: ABSOLUTE EOSINOPHILS # (AUTO) 0.3 10^3/uL (0.0-0.6); ABSOLUTE MONOCYTES (AUTO) 0.4 10^3/uL (0.1-1.4); ABSOLUTE NEUT (AUTO) 2.9 10^3/uL (1.7-8.2); BASOPHILS % (AUTO) 0.7 % (0-2); EOSINOPHILS % (AUTO) 5.7 % (0-6); HEMATOCRIT 36.6 % (37.9-51.0); HEMOGLOBIN 12.5 g/dL (13.5-17.0); MEAN CORPUSCULAR HGB CONC 34.2 g/dL (32.0-36.0); MEAN CORPUSCULAR VOLUME 94 fl (80-97); MONOCYTES % (AUTO) 8.8 % (3-13); PLATELET COUNT 184 10^3/uL (150-450); RED BLOOD COUNT 3.92 10^6/uL (4.35-5.55); RED CELL DISTRIBUTION WIDTH 13.2 % (11.5-14.0); SEGMENTED NEUTROPHILS % (AUTO) 62.8 % (42-78); TOTAL CELLS COUNTED % (AUTO) 100 %; WHITE BLOOD COUNT 4.6 10^3/uL (4.0-10.5)
[2019-12-12 22:44] LABS: ALBUMIN 3.7 g/dL (3.5-5.0); ALKALINE PHOSPHATASE 72 U/L (38-126); ANION GAP 7 (5-19); ASPARTATE AMINO TRANSFERASE 35 U/L (17-59); BILIRUBIN,DIRECT 0.2 mg/dL (0.0-0.4); BILIRUBIN,TOTAL 0.2 mg/dL (0.2-1.3); BLOOD UREA NITROGEN 9 mg/dL (7-20); CALCIUM 8.4 mg/dL (8.4-10.2); CARBON DIOXIDE 28 mmol/L (22-30); CHLORIDE 92 mmol/L (98-107); GLUCOSE 99 mg/dL (75-110); POTASSIUM 4.8 mmol/L (3.6-5.0); TOTAL PROTEIN 6.7 g/dL (6.3-8.2)
[2019-12-13] MEDS ORDERED: BENAZEPRIL HCL 20 MG TABLET PO ONE (01:26)
--- NOTE | 2019-12-13 01:29 | ER Document Report ---
ED Blood Pressure Problem - General Chief Complaint: High Blood Pressure Stated Complaint: HIGH BLOOD PRESSURE Time Seen by Provider: 12/13/19 01:04 Primary Care Provider: SHADIA AZAR PA-C [Primary Care Provider] - Follow up as needed Notes: Patient is a 79-year-old male that comes to the emergency department for chief complaint of elevated blood pressure. He states he always can tell when his blood pressure is too high but he denies headache, focal numbness or weakness, visual changes, chest pain, or any other complaints at this time. He states he took his blood pressure at home and it was 217/213, he admits this is probably inaccurate but he is convinced that is high. He was discharged this morning from [facility] after he had been admitted for hyponatremia, he has paperwork showing that he is supposed to stop his new prescription of HCTZ 12.5 mg and Bactrim, however on his medication reconciliation state it also states that he is supposed to stop his benazepril which his semiautomatic stitcher operator put him on. He states he is unsure if he is supposed to be taking his benazepril as a result and since he has not been taking it his blood pressure has been high today. Patient is also on amlodipine 5 mg, metoprolol succinate 25 mg nightly. He has a history of hypertension, hyperlipidemia, CABG. He follows with cardiology Dr. Aguero and already has a close follow-up scheduled. TRAVEL OUTSIDE OF THE [place] IN LAST 30 DAYS: No - Related Data Allergies/Adverse Reactions: doxycycline Adverse Reaction (Verified 12/09/19 16:23) Vomiting Past Medical History - General Information source: Patient - Social History Smoking Status: Never Smoker Chew tobacco use (# tins/day): No Frequency of alcohol use: None Drug Abuse: None Lives with: Family Family History: Reviewed & Not Pertinent, COPD Patient has suicidal ideation: No Patient has homicidal ideation: No - Past Medical History Cardiac Medical History: Reports: Hx Coronary Artery Disease, Hx Hypercholesterolemia, Hx Hypertension Denies: Hx Heart Attack Pulmonary Medical History: Reports: Hx Pneumonia Denies: Hx Asthma, Hx Bronchitis, Hx COPD Neurological Medical History: Denies: Hx Cerebrovascular Accident, Hx Seizures Endocrine Medical History: Reports: Hx Hypothyroidism Renal/ Medical History: Reports: Hx Benign Prostatic Hyperplasia. Denies: Hx Peritoneal Dialysis GI Medical History: Reports: Hx Gastroesophageal Reflux Disease, Hx Hiatal Hernia - 30 years ago Musculoskeletal Medical History: Reports Hx Arthritis - shoulders,knees,ribs Past Surgical History: Reports: Hx Adenoidectomy, Hx Coronary Artery Bypass Graft - 2000, Hx Open Heart Surgery - 2000, Hx Orthopedic Surgery - L3-4-5 spinal stenosis; lt shoulder, Hx Tonsillectomy. Denies: Hx Pacemaker - Immunizations Immunizations up to date: Yes Hx Diphtheria, Pertussis, Tetanus Vaccination: Yes Hx Pneumococcal Vaccination: 07/16/16 Review of Systems - Review of Systems Constitutional: See HPI EENT: No symptoms reported Cardiovascular: No symptoms reported Respiratory: No symptoms reported Gastrointestinal: No symptoms reported Genitourinary: No symptoms reported Male Genitourinary: No symptoms reported Musculoskeletal: No symptoms reported Skin: No symptoms reported Hematologic/Lymphatic: No symptoms reported Neurological/Psychological: No symptoms reported Physical Exam - Vital signs Vitals: Temp Pulse Resp BP Pulse Ox 97.8 F 60 18 175/83 H 95 12/12/19 21:25 12/12/19 21:25 12/12/19 21:25 12/12/19 21:25 12/12/19 21:25 - Notes Notes: GENERAL: Alert, interacts well. No acute distress. HEAD: Normocephalic, atraumatic. EYES: Pupils equal, round, and reactive to light. Extraocular movements intact. ENT: Oral mucosa moist, tongue midline. Oropharynx unremarkable. Airway patent. LUNGS: Clear to auscultation bilaterally, no wheezes, rales, or rhonchi. No respiratory distress. HEART: Regular rate and rhythm. No murmur ABDOMEN: Soft, non-tender. Non-distended. EXTREMITIES: Moves all 4 extremities spontaneously. No edema, normal radial and dorsalis pedis pulses bilaterally. No cyanosis. BACK: no cervical, thoracic, lumbar midline tenderness. No saddle anesthesia, normal distal neurovascular exam. Moves all extremities in full range of motion. NEUROLOGICAL: Alert and oriented x3. Normal speech. Cranial nerves II through XII grossly intact. PSYCH: Normal affect, normal mood. SKIN: Warm, dry, normal turgor. No rashes or lesions noted. Course - Re-evaluation Re-evalutation: Patient is hypertensive, however he is asymptomatic and well-appearing. He has a normal neurological exam, no headache, no chest pain. I did review laboratory work-up from triage, this does show hyponatremia but this is not significantly changed from prior and is still greater than 125. There appears to have been an error with patient's paperwork, patient will be continued on benazepril and he will stop Bactrim and hydrochlorothiazide because of hyponatremia and kidney involvement. Patient took his own dose now, he will be resuming his benazepril, he has close follow-up already scheduled with his provider. Discussed with Dr. Chatman. Discussed details, discussed return precautions with patient. Patient states understanding and agreement. Stable, well-appearing, asymptomatic at ti me of discharge. - Vital Signs Vital signs: Temp Pulse Resp BP Pulse Ox 98.1 F 55 L 18 183/81 H 98 12/13/19 01:42 12/13/19 01:42 12/13/19 01:42 12/13/19 01:42 12/13/19 01:42 - Laboratory Result Diagrams: 12/12/19 22:15 12/12/19 22:15 Laboratory results interpreted by me: 12/12/19 12/12/19 22:15 22:15 RBC 3.92 L Hgb 12.5 L Hct 36.6 L Sodium 127.0 L Chloride 92 L Discharge - Discharge Clinical Impression: Essential hypertension Condition: Stable Disposition: HOME, SELF-CARE Additional Instructions: Please resume your benazepril 20 mg twice a day, to be clear you also need to not be taking the hydrochlorothiazide and the Bactrim. Continue your regular medications otherwise. Follow-up with your semiautomatic stitcher operator as planned. Return for any concerning symptoms including headache, weakness on one side of your body, visual changes, chest pain, or any other concerning symptoms. Referrals: SHADIA AZAR PA-C [Primary Care Provider] - Follow up as needed
[2019-12-13 01:44] VITALS: BP 183/81
[2019-12-13] MEDS ORDERED: BENAZEPRIL HCL 20 MG TABLET ONE (02:42)
== END 2019-12-13 02:00 | disposition home or self-care (01) ==
LOC: ER 21:08
DX: I10 Essential (primary) hypertension (principal); E87.1 Hypo-osmolality and hyponatremia; I25.10 Atherosclerotic heart disease of native coronary artery without angina pectoris; Z79.899 Other long term (current) drug therapy; Z95.1 Presence of aortocoronary bypass graft
CPT/HCPCS: 36415; 87070; 99283

== ENCOUNTER → 2020-03-08 | Outpatient (CLI) | payer MEDICARE ==
--- NOTE | 2020-03-08 10:04 | ER RDC ASSESSMENT REPORT ---
Intake - In the Last 14 days Have you traveled outside [place]?: No Have you been in close contact with someone CONFIRMED: Yes Worked in Healthcare?: No - Symptoms Subjective Fever([place] feverish): No Chills: No Muscule Aches: No Runny Nose: No Sore Throat: No Cough (New or worsening chronic cough): No Shortness of breath: No Nausea or Vomiting: No Headache: No Abdominal Pain: No Diarrhea(3 or more loose stools in last 24 hours): No - Do you have any of the following Chronic lung disease: Asthma or emphysema or COPD: No Cystic Fibrosis: No Diabetes: No High Blood Pressure: No Cardiovascular Disease: Yes Chronic Kidney Disease: No Chronic Liver Disease: No Chronic blood disorder like Sickle Cell Disease: No Weak immune system due to disease or medication: No Neurologic condition that limits movement: No Developmental delay - Moderate to Severe: No Recent (within past 2 weeks) or current : No Morbid Obesity (>100 pounds over ideal weight): No - Objective Vital Signs: 5'6", 184 lb Temperature: 98.0 F Pulse Rate: 56 Respiratory Rate: 18 Blood Pressure: 148/58 O2 Sat by Pulse Oximetry: 95 Objective: Given above, testing performed: COVID19 Disposition: Home; Selfcare General - General Chief Complaint: Other Time Seen by Provider: 03/08/20 09:30 Mode of Arrival: Ambulatory Information source: Patient - HPI Notes: 79-year-old male presents to clinic for COVID-19 testing. Patient has significant medical history of CHF, quadruple bypass, and prostate cancer (10 years ago). Patient is reporting recent exposure to COVID positive son and COVID positive visitor and would like to be tested. Patient is asymptomatic. He denies any cough, shortness of breath, fever, chills, muscle aches, rhinorrhea, sore throat, nausea or vomiting, headache, abdominal pain or diarrhea. Patient has no acute medical concerns - Related Data Allergies/Adverse Reactions: doxycycline Adverse Reaction (Verified 12/09/19 16:23) Vomiting Home Medications: Metoprolol ER, aspirin, multivitamin, primidone, omeprazole, amlodipine, levothyroxine, finasteride, tamsulosin Past Medical History - General Information source: Patient - Social History Smoking Status: Former Smoker Lives with: Family Family History: COPD - Past Medical History Cardiac Medical History: Reports: Hx Coronary Artery Disease, Hx Hypercholesterolemia, Hx Hypertension Denies: Hx Heart Attack Pulmonary Medical History: Reports: Hx Pneumonia Denies: Hx Asthma, Hx Bronchitis, Hx COPD EENT Medical History: Reports: None Neurological Medical History: Reports: Other - tremors. Denies: Hx Cerebrovascular Accident, Hx Seizures Endocrine Medical History: Reports: Hx Hypothyroidism Renal/ Medical History: Reports: Hx Benign Prostatic Hyperplasia. Denies: Hx Peritoneal Dialysis Malignancy Medical History: Reports Hx Prostate Cancer GI Medical History: Reports: Hx Gastroesophageal Reflux Disease, Hx Hiatal Hernia - 30 years ago Musculoskeletal Medical History: Reports Hx Arthritis - shoulders,knees,ribs Skin Medical History: Reports None Psychiatric Medical History: Reports: None Traumatic Medical History: Reports: None Infectious Medical History: Reports: None Past Surgical History: Reports: Hx Adenoidectomy, Hx Coronary Artery Bypass Graft - 2000, Hx Open Heart Surgery - 2000, Hx Orthopedic Surgery - L3-4-5 spinal stenosis; lt shoulder, Hx Tonsillectomy. Denies: Hx Pacemaker Physical Exam - General General appearance: Appears well In distress: None Notes: PHYSICAL EXAMINATION: GENERAL: Well-appearing and in no acute distress. HEAD: Atraumatic, normocephalic. EYES: sclera anicteric, conjunctiva are normal. ENT: nares patent. Moist mucous membranes. NECK: Normal range of motion, supple without lymphadenopathy LUNGS: CTAB and equal. No wheezes rales or rhonchi. HEART: Regular rate and rhythm without murmurs ABDOMEN: Soft, nontender, normal bowel sounds, no guarding. EXTREMITIES: Normal range of motion, no pitting edema. No cyanosis. NEUROLOGICAL: Cranial nerves grossly intact. Normal speech. PSYCH: Normal mood, normal affect. SKIN: Warm, Dry, normal turgor, no rashes or lesions noted Patient Education/Counseling Counseling/Education: Patient presents as asymptomatic individual but with recent close contact with confirmed COVID 19 son and other visitor. Patient does not have emergency worrying symptoms such as difficulty breathing, shortness of breath, chest pain, pressure, confusion or cyanosis. Patient appears suitable for discharge as vital signs are stable and patient is nontoxic in appearance. Good return precautions have been discussed with patient, patient verbalized understanding and is agreeable with discharge plan of care at this time. Guidance for worsening S/SX: As a person under investigation for Covid 19, the [place] department of Health and Human Services, division of public health advises you to adhere to the following guidance until your test results are reported to you. If your test result is positive, you will receive additional information from your provider and your local health department at that time. Remain at home until you are cleared by the health provider or public health authorities. Keep a log of visitors to your home, notify any visitors to your home of your isolation status. If you plan to move to a new address or leave the county, notify the local health department in your County. Call your doctor or seek care if you have an urgent medical need. Before s eeking medical care, call ahead to get instructions from the provider before arriving at the medical office clinic or hospital. Notify them that you are being tested for the virus that causes Covid 19 so that arrangements can be made, as necessary, to prevent transmission to others in the healthcare setting. Next, notify the local health department in your county. If a medical emergency arises and you need to call 911, inform the first responders that you are being tested for the virus that causes Covid 19. Next, notify the local health department in your county. RDC Discharge - Discharge Clinical Impression: Encounter for screening laboratory testing for COVID-19 virus Condition: Good Disposition: Home; Selfcare
[2020-03-08 10:05] VITALS: BP 148/58
== END ==
LOC: RDC 09:09
PROVIDERS: ATTEND Registered Nurse
DX: Z20.828 Contact with and (suspected) exposure to other viral communicable diseases (principal); I50.9 Heart failure, unspecified; E03.9 Hypothyroidism, unspecified; Z95.1 Presence of aortocoronary bypass graft; K21.9 Gastro-esophageal reflux disease without esophagitis; Z85.46 Personal history of malignant neoplasm of prostate; Z87.891 Personal history of nicotine dependence; Z88.8 Allergy status to other drugs, medicaments and biological substances
CPT/HCPCS: U0003; C9803; 87635